=== PATIENT | female | born 1945 | race Hispanic/Latino ===

== ENCOUNTER 2016-09-22 02:43 | Inpatient (IN) | payer MEDICARE ==
--- NOTE | 2016-09-22 03:23 | C.PDOC ---
History Of Present Illness Patient presents to the ER with a complaint of a burning, throbbing, mid epigastric and mid sternal pain since 18:30, associated with a productive cough. Patient reports taking nexium with no relief to symptoms. Patient is speaking in complete sentence; denies fever or chills. Time Seen by Provider: 09/22/16 03:22 Chief Complaint (Nursing): Chest Pain History Per: Patient History/Exam Limitations: no limitations Onset/Duration Of Symptoms: Hrs Current Symptoms Are (Timing): Still Present Severity: Moderate Pain Scale Rating Of: 4 Quality: Burning, Other (Throbbing) Associated Symptoms: Other ((+) Productive cough. (-) Fever, Chills) Modifying Factors: None Exacerbating Factors: None Alleviating Factors: None Recent travel outside of the [place]: No Past Medical History Reviewed: Historical Data, Nursing Documentation, Vital Signs Vital Signs: Last Vital Signs Temp 98.2 F 09/22/16 04:11 Pulse 67 09/22/16 04:11 Resp 12 09/22/16 04:11 BP 163/69 H 09/22/16 04:11 Pulse Ox 97 09/22/16 05:10 - Medical History PMH: Fractures, HTN, Hypothyroidism Surgical History: No Surg Hx Family History: States: No Known Family Hx - Social History Hx Alcohol Use: No Hx Substance Use: No - Immunization History Hx Tetanus Toxoid Vaccination: No Hx Influenza Vaccination: No Hx Pneumococcal Vaccination: No Review Of Systems Constitutional: Negative for: Fever, Chills Cardiovascular: Positive for: Chest Pain (Mid sternal) Respiratory: Positive for: Cough, Sputum Gastrointestinal: Positive for: Abdominal Pain (Mid epigastric) Genitourinary: Negative for: Dysuria Musculoskeletal: Negative for: Back Pain Skin: Negative for: Rash Neurological: Negative for: Weakness Psych: Negative for: Anxiety Physical Exam - Physical Exam Appears: Non-toxic Skin: Warm, Dry Head: Normacephalic Eye(s): bilateral: Normal Inspection Oral Mucosa: Moist Neck: Supple Chest: Symmetrical, No Tenderness Cardiovascular: Rhythm Regular, No Murmur Respiratory: No Rales, No Rhonchi, No Wheezing Gastrointestinal/Abdominal: Soft, Tenderness (Mid epigastric) Back: No CVA Tenderness Extremity: Normal ROM Extremity: Bilateral: Atraumatic Neurological/Psych: Oriented x3, Normal Speech, Normal Cognition Gait: Steady ED Course And Treatment - Laboratory Results Result Diagrams: 09/22/16 03:50 09/22/16 03:50 ECG: Interpreted By Me, Viewed By Me ECG Rhythm: Sinus Rhythm (63), Nonspecific Changes (sinus arrithmya) O2 Sat by Pulse Oximetry: 97 Pulse Ox Interpretation: Normal Progress Note: EKG, blood work, CXR and urinalysis ordered. Aspirin and protonix administered. Disposition Discussed With Dr.: Francisco J Chacon Comment: accepted the pt on his service and took over the care at 6:30 AM Doctor Will See Patient In The: Hospital Counseled Patient/Family Regarding: Studies Performed, Diagnosis - Disposition Disposition: HOSPITALIZED Disposition Time: 04:30 Condition: FAIR - Clinical Impression Clinical Impression: Abdominal pain, Cholecystitis, acute, Lung mass - Scribe Statement The provider has reviewed the documentation as recorded by the Scribe Hugh London All medical record entries made by the Scribe were at my direction and personally dictated by me. I have reviewed the chart and agree that the record accurately reflects my personal performance of the history, physical exam, medical decision making, and the department course for this patient. I have also personally directed, reviewed, and agree with the discharge instructions and disposition. Decision To Admit - Pt Status Changed To: Hospital Disposition Of: Inpatient - Admit Certification Admit to Inpatient:: After my assessment, the patient will require hospitalization for at least two midnights. This is because of the severity of symptoms shown, intensity of services needed, and/or the medical risk in this patient being treated as an outpatient. - InPatient: Physician Admission Certification: I certify that this patient requires 2 or more midnights of care for the following reason:: After my assessment, the patient will require hospitalization for at least two midnights. This is because of the severity of symptoms shown, intensity of services needed, and/or the medical risk in this patient being treated as an outpatient. - . Bed Request Type: Regular Admitting Physician: Francisco J Chacon Patient Diagnosis: Abdominal pain, Cholecystitis, acute, Lung mass
[2016-09-22 03:53] LABS: BASO # 0.1 K/uL (0.0-0.2); BASO % 0.6 % (0.0-2.0); EOS % 0.3 % (0.0-4.0); HEMOGLOBIN 12.2 g/dL (11.0-16.0); LYMPH # 0.9 K/uL (1.0-4.3); LYMPH % 6.4 % (20.0-40.0); MEAN CELL VOLUME 78.9 fL (81.0-99.0); MEAN CORPUSCULAR HEMOGLOBIN 25.5 pg (27.0-31.0); MEAN CORPUSCULAR HGB CONC 32.3 g/dL (33.0-37.0); MEAN PLATELET VOLUME 7.1 fL (7.2-11.7); MONO # 0.4 K/uL (0.0-0.8); MONO % 2.7 % (0.0-10.0); NEUT # 12.3 K/uL (1.8-7.0); PLATELET COUNT 401 K/uL (130-400); RBC 4.79 Mil/uL (3.80-5.20); RED CELL DISTRIBUTION WIDTH 15.7 % (11.5-14.5); WHITE BLOOD COUNT 13.6 K/uL (4.8-10.8)
[2016-09-22] MEDS ORDERED: Piperacillin/Tazobact 3.375 gm 100 ML IVPB STA ×2 (03:59→06:31)
[2016-09-22 04:01] LABS: ALBUMIN 4.1 g/dL (3.5-5.0); INR 1.1; PROTHROMBIN TIME 12.5 SECONDS (9.7-12.2)
[2016-09-22 04:03] LABS: AST/SGOT 172 U/L (14-36); GFR AFRICAN-AMERICAN > 60; GFR NON-AFRICAN AMERICAN > 60
[2016-09-22 04:04] LABS: ALB/GLOB RATIO 0.9 (1.0-2.1); ALT/SGPT 105 U/L (9-52); BLOOD UREA NITROGEN 13 mg/dL (7-17); CALCIUM 9.6 mg/dl (8.6-10.4); LIPASE 66 U/L (23-300)
[2016-09-22] MEDS ORDERED: Piperacillin/Tazobact 3.375 gm 100 ML IVPB ONE (04:12)
[2016-09-22 04:41] LABS: LYMPHOCYTE 4 % (20-40); MONOCYTE 2 % (0-10); NEUTROPHIL 94 % (50-75); PLATELET ESTIMATE SLIGHTLY INCREASED (NORMAL); TOTAL CELLS COUNTED 100; TOXIC GRANULATION PRESENT
[2016-09-22 04:42] LABS: ANISOCYTOSIS SLIGHT; MICROCYTOSIS SLIGHT
--- NOTE | 2016-09-22 06:00 | CT ---
EXAM: CT Chest Without Intravenous Contrast CLINICAL HISTORY: 71 years old, female; Pain; Chest pain; Additional info: Left lower lobe mass TECHNIQUE: Axial computed tomography images of the chest without intravenous contrast. This CT exam was performed using one or more of the following dose reduction techniques: automated exposure control, adjustment of the mA and/or kV according to patient size, and/or use of iterative reconstruction technique. Coronal and sagittal reformatted images were created and reviewed. EXAM DATE/TIME: 09/22/2016 4:03 AM COMPARISON: No relevant prior studies available. FINDINGS: LUNGS: Large 6.3 x 6.3 x 5.2 cm round, masslike density in the lingula, highly suspicious for a lung mass. This has lobulated, and mildly irregular margins. It abuts the pleural fissure anteriorly. There is mild adjacent nearby interstitial thickening. Diffuse emphysematous changes. Cluster of 3 noncalcified nodules seen in the right lower lobe, images 60, 66 and 70 of series 4. The largest of these measures 7 x 4 mm. There is also a 4 mm noncalcified nodule in the left lower lobe, image 85 series 4. No evidence of significant focal consolidation/infiltrate in the lungs. No evidence of diffuse pulmonary vascular congestion. PLEURAL SPACE: No pneumothorax or significant pleural effusions seen. HEART: Coronary artery calcification. Tiny pericardial effusion. BONES/JOINTS: Bony structures appear demineralized. No evidence of destructive or otherwise aggressive-appearing bony lesions. SOFT TISSUES: No acute abnormality of the visualized soft tissues is seen. VASCULATURE: Exam is nondiagnostic for aortic dissection and pulmonary emboli, secondary to unenhanced technique. LYMPH NODES: Scattered small mediastinal nodes seen, none appearing pathologically enlarged. No evidence of diffuse pathologic lymphadenopathy. LIVER: No focal liver lesions seen on this unenhanced exam. ADRENALS: 2 cm left adrenal lesion, having a CT attenuation of less than 10 Hounsfield units on this noncontrast exam, most likely representing a benign adenoma. UPPER ABDOMEN: Large stone in the gallbladder neck region. There is subtle infiltration of the fat adjacent to the gallbladder, suspicious for subtle pericholecystic inflammation. The gallbladder is incompletely visualized on this exam. IMPRESSION: - Findings suspicious for a large 6.3 cm lingular lung mass. Malignancy is suspected. - Cholelithiasis, with suspected subtle pericholecystic inflammation. Early acute cholecystitis is not excluded. Recommend clinical correlation, and further workup as indicated, such as with right upper quadrant ultrasound or followup abdominal CT with contrast. - Diffuse emphysematous changes. - Scattered subcentimeter pulmonary nodules, as described. - See above for remaining findings.
[2016-09-22 07:23] LABS: URINE AMORPHOUS SEDIMENT RARE /ul (<OCC); URINE BILIRUBIN NEGATIVE (NEGATIVE); URINE BLOOD NEGATIVE (NEGATIVE); URINE CLARITY Hazy (Clear); URINE COLOR Yellow (YELLOW); URINE GLUCOSE (UA) NORMAL (Normal); URINE LEUKOCYTE ESTERASE TRACE Leu/uL (Negative); URINE NITRATE NEGATIVE (NEGATIVE); URINE PROTEIN NEGATIVE (NEGATIVE); URINE UROBILINOGEN NORMAL mg/dL (0.2-1.0)
--- NOTE | 2016-09-22 09:23 | US ---
Right upper quadrant abdominal ultrasound History: Elevated liver enzymes. Gallstones. Pain. Comparison: None available. Technique: Real-time sonography was performed through the right upper quadrant of the abdomen. Findings: Liver: 17.5 centimeters in length. Prominent. Increased echogenicity of the hepatic parenchymal cortex suggestive for fatty infiltration versus hepatic parenchymal disease. Gallbladder: Cholelithiasis. Prominent calculi measure up to 2.7 millimeters. Associated sludge. Prominent wall thickening measuring up to 7.5 millimeters. Associated wall edema. Positive sonographic Cloud's sign. Common bile duct is prominent measuring up to 7 millimeters. Limited visualization of the pancreas. Visualized portions appear somewhat echogenic. Clinical correlation. Visualized aorta and IVC are preserved. Right kidney: 12.9 x 4.4 x 5.5 centimeters. No calculi or hydronephrosis. Impression: Cholelithiasis with prominent gallbladder wall thickening measuring up to 7.5 millimeters as well as associated wall edema and pericholecystic fluid. Positive sonographic Cloud's sign. These findings are concerning for possible acute cholecystitis. Clinical correlation. Enlarged liver with diffuse increased echogenicity suggestive for fatty infiltration versus hepatic parenchymal disease. Clinical correlation. Mild prominence of the common bile duct measuring up to 7 millimeters. Limited visualization of the pancreas.
[2016-09-22] MEDS ORDERED: Morphine 4 MG/ML VIAL ONE (09:35)
[2016-09-22] MEDS ORDERED: Piperacill/Tazo 2.25gm in Dex 2.25 GM/50 ML BAG IVPB SCH (10:15)
--- NOTE | 2016-09-22 10:26 | CP.PCM.CON ---
History of Present Illness - History of Present Illness History of Present Illness: SURGERY CONSULT NOTE FOR DR. HEBERT 71F presents to [facility] [place] with epigastric pain that began last night after dinner. Patient states she thought it was her GERD acting up but pain began worse despite taking antacids. Patient states pain is associated with vomiting and she has not been able to keep food down. She states she is not hungry. Patient states she had a temp of 100 at home. Denies shortness of breath. PMH: Thyroid disease, HTN, GERD PSH: *2 Social: denies tobacco, alcohol and illicit drugs Allergies: Iodine Past Patient History - Past Social History Smoking Status: Never Smoked - CARDIAC Hx Hypertension: Yes - ENDOCRINE/METABOLIC Hx Hypothyroidism: Yes - MUSCULOSKELETAL/RHEUMATOLOGICAL Hx Fractures: Yes - PSYCHIATRIC Hx Substance Use: No - SURGICAL HISTORY Hx Surgeries: No Meds Allergies/Adverse Reactions: Allergies Allergy/AdvReac Type Severity Reaction Status Date / Time iodine Allergy Verified 09/22/16 03:00 - Medications Medications: Current Medications Piperacillin Sod/Tazobactam Sod (Zosyn 2.25 Gm Iv Premix) 2.25 gm in 50 mls @ 100 mls/hr IVPB Q6H [facility] Morphine Sulfate (Morphine) 2 mg IVP Q4 PRN PRN Reason: Pain, moderate (4-7) Stop: 09/25/16 10:16 Pantoprazole Sodium (Protonix Ec Tab) 40 mg PO DAILY [facility] Physical Exam - Constitutional Appears: Non-toxic, No Acute Distress - Head Exam Head Exam: ATRAUMATIC - Eye Exam Eye Exam: EOMI, PERRL - ENT Exam ENT Exam: Mucous Membranes Moist - Respiratory Exam Respiratory Exam: Clear to Auscultation Bilateral, NORMAL BREATHING PATTERN - Cardiovascular Exam Cardiovascular Exam: REGULAR RHYTHM, +S1, +S2 - GI/Abdominal Exam GI & Abdominal Exam: Soft, Tenderness (epigastric/ RUQ tenderness). absent: Distended, Firm, Guarding, Rigid - Extremities Exam Extremities exam: Negative for: pedal edema, tenderness - Neurological Exam Neurological exam: Alert, Oriented x3 - Psychiatric Exam Psychiatric exam: Normal Affect, Normal Mood - Skin Skin Exam: Dry, Intact, Normal Color, Warm Results - Vital Signs Recent Vital Signs: Last Vital Signs Temp 97.8 F 09/22/16 07:45 Pulse 75 09/22/16 07:45 Resp 20 09/22/16 07:45 BP 151/72 H 09/22/16 07:45 Pulse Ox 95 09/22/16 07:45 - Labs Result Diagrams: 09/22/16 03:50 09/22/16 03:50 Assessment & Plan - Assessment and Plan (Free Text) Assessment: 71F with Acute Cholecystitis US: Gallbladder wall thickening, cholelithiasis, sludge, CBD7mm, positive sonographic murphys sign Plan: - NPO, IVF, ABX, anti-emetic - AM labs, Coags - pre-op - consented for Lap Cholecystectomy - Plan for OR tomorrow Discussed with Dr. Chari Chahal, PGY1
--- NOTE | 2016-09-22 11:36 | RAD ---
PROCEDURE: CHEST RADIOGRAPH, 1 VIEW HISTORY: Abdominal pain COMPARISON: None available. FINDINGS: LUNGS: Large rounded mass seen projecting over the left mid to lower lung zone measuring up to 7.5 centimeters concerning for neoplasm. Hyperinflation suggestive for COPD and or emphysematous changes. Bilateral hilar prominence. PLEURA: As above. CARDIOVASCULAR: Normal. OSSEOUS STRUCTURES: No significant abnormalities. VISUALIZED UPPER ABDOMEN: Normal. OTHER FINDINGS: None. IMPRESSION: Large rounded mass seen projecting over the left mid to lower lung zone measuring up to 7.5 centimeters concerning for neoplasm. Hyperinflation suggestive for COPD and or emphysematous changes. Bilateral hilar prominence.
[2016-09-22] MEDS: Sodium Chloride 0.9% 1,000 ML IV SCH ×3 (12:18→20:40)
[2016-09-22] MEDS: Piperacill/Tazo 3.375gm in Dex 3.375 GM/50 ML BAG IVPB SCH ×2 (12:24→18:43)
--- NOTE | 2016-09-22 12:55 | CP.PCM.CON ---
History of Present Illness - History of Present Illness History of Present Illness: 71F presents to [facility] with epigastric pain that began last night after dinner. Patient states she thought it was her GERD acting up but pain began worse despite taking antacids. Patient states pain is associated with vomiting and she has not been able to keep food down. She states she is not hungry. Patient states she had a temp of 100 at home. Denies shortness of breath. Found to have cholecystitis and lung mass Rx in progress PMH: Thyroid disease, HTN, GERD PSH: *2 Social: denies tobacco, alcohol and illicit drugs Allergies: Iodine Past Patient History - Past Medical History & Family History Past Medical History?: Yes - Past Social History Smoking Status: Never Smoked - CARDIAC Hx Cardiac Disorders: Yes Hx Hypertension: Yes - PULMONARY Hx Respiratory Disorders: No - NEUROLOGICAL Hx Neurological Disorder: No - HEENT Hx HEENT Problems: No - RENAL Hx Chronic Kidney Disease: No - ENDOCRINE/METABOLIC Hx Endocrine Disorders: Yes Hx Hypothyroidism: Yes - HEMATOLOGICAL/ONCOLOGICAL Hx Blood Disorders: No - INTEGUMENTARY Hx Dermatological Problems: No - MUSCULOSKELETAL/RHEUMATOLOGICAL Hx Arthritis: Yes Hx Falls: No Hx Fractures: Yes - GASTROINTESTINAL Hx Gastrointestinal Disorders: No - GENITOURINARY/GYNECOLOGICAL Hx Genitourinary Disorders: No - PSYCHIATRIC Hx Psychophysiologic Disorder: Yes Hx Substance Use: No - SURGICAL HISTORY Hx Surgeries: No - ANESTHESIA Hx Anesthesia: Yes Hx Anesthesia Reactions: No Hx Malignant Hyperthermia: No Has any member of the family had a problem w/ anesthesia?: No Meds Allergies/Adverse Reactions: Allergies Allergy/AdvReac Type Severity Reaction Status Date / Time iodine Allergy Verified 09/22/16 03:00 - Medications Medications: Current Medications Acetaminophen (Tylenol 325mg Tab) 650 mg PO Q6 PRN PRN Reason: Fever >100.4 F Piperacillin Sod/Tazobactam Sod (Zosyn 3.375 Gm Iv Premix) 3.375 gm in 50 mls @ 100 mls/hr IVPB Q6 [facility] Last Admin: 09/22/16 12:24 Dose: 100 mls/hr Sodium Chloride (Sodium Chloride 0.9%) 1,000 mls @ 150 mls/hr IV .Q6H40M [facility] Last Admin: 09/22/16 12:18 Dose: 150 mls/hr Morphine Sulfate (Morphine) 4 mg IVP Q4 PRN PRN Reason: Pain, moderate (4-7) Stop: 09/25/16 10:16 Ondansetron HCl (Zofran Inj) 4 mg IVP Q6 PRN PRN Reason: Nausea/Vomiting Pantoprazole Sodium (Protonix Ec Tab) 40 mg PO DAILY [facility] Results - Vital Signs Recent Vital Signs: Last Vital Signs Temp 98.0 F 09/22/16 11:00 Pulse 76 09/22/16 11:00 Resp 20 09/22/16 11:00 BP 155/70 H 09/22/16 11:00 Pulse Ox 98 09/22/16 11:00 - Labs Result Diagrams: 09/22/16 03:50 09/22/16 03:50
--- NOTE | 2016-09-22 14:31 | CP.PCM.HP ---
Past Patient History - Past Medical History & Family History Past Medical History?: Yes - Past Social History Smoking Status: Never Smoked - CARDIAC Hx Cardiac Disorders: Yes Hx Hypertension: Yes - PULMONARY Hx Respiratory Disorders: No - NEUROLOGICAL Hx Neurological Disorder: No - HEENT Hx HEENT Problems: No - RENAL Hx Chronic Kidney Disease: No - ENDOCRINE/METABOLIC Hx Endocrine Disorders: Yes Hx Hypothyroidism: Yes - HEMATOLOGICAL/ONCOLOGICAL Hx Blood Disorders: No - INTEGUMENTARY Hx Dermatological Problems: No - MUSCULOSKELETAL/RHEUMATOLOGICAL Hx Arthritis: Yes Hx Falls: No Hx Fractures: Yes - GASTROINTESTINAL Hx Gastrointestinal Disorders: No - GENITOURINARY/GYNECOLOGICAL Hx Genitourinary Disorders: No - PSYCHIATRIC Hx Psychophysiologic Disorder: Yes Hx Substance Use: No - SURGICAL HISTORY Hx Surgeries: No - ANESTHESIA Hx Anesthesia: Yes Hx Anesthesia Reactions: No Hx Malignant Hyperthermia: No Has any member of the family had a problem w/ anesthesia?: No Meds Allergies/Adverse Reactions: Allergies Allergy/AdvReac Type Severity Reaction Status Date / Time iodine Allergy Verified 09/22/16 03:00 Physical Exam - Constitutional Appears: Well - Head Exam Head Exam: ATRAUMATIC, NORMAL INSPECTION, NORMOCEPHALIC - Eye Exam Eye Exam: EOMI, Normal appearance, PERRL Pupil Exam: NORMAL ACCOMODATION, PERRL - ENT Exam ENT Exam: Mucous Membranes Moist, Normal Exam - Neck Exam Neck exam: Positive for: Normal Inspection - Respiratory Exam Respiratory Exam: Decreased Breath Sounds - Cardiovascular Exam Cardiovascular Exam: REGULAR RHYTHM, +S1, +S2 - GI/Abdominal Exam GI & Abdominal Exam: Diminished Bowel Sounds, Soft - Rectal Exam Rectal Exam: Deferred Results - Vital Signs Recent Vital Signs: Last Vital Signs Temp 98.0 F 09/22/16 11:00 Pulse 76 09/22/16 11:00 Resp 20 09/22/16 11:00 BP 155/70 H 09/22/16 11:00 Pulse Ox 98 09/22/16 11:00 - Labs Result Diagrams: 09/22/16 03:50 09/22/16 03:50
--- NOTE | 2016-09-22 17:22 | CP.PCM.CON ---
Past Patient History - Past Medical History & Family History Past Medical History?: Yes - Past Social History Smoking Status: Never Smoked - CARDIAC Hx Cardiac Disorders: Yes Hx Hypertension: Yes - PULMONARY Hx Respiratory Disorders: No - NEUROLOGICAL Hx Neurological Disorder: No - HEENT Hx HEENT Problems: No - RENAL Hx Chronic Kidney Disease: No - ENDOCRINE/METABOLIC Hx Endocrine Disorders: Yes Hx Hypothyroidism: Yes - HEMATOLOGICAL/ONCOLOGICAL Hx Blood Disorders: No - INTEGUMENTARY Hx Dermatological Problems: No - MUSCULOSKELETAL/RHEUMATOLOGICAL Hx Arthritis: Yes Hx Falls: No Hx Fractures: Yes - GASTROINTESTINAL Hx Gastrointestinal Disorders: No - GENITOURINARY/GYNECOLOGICAL Hx Genitourinary Disorders: No - PSYCHIATRIC Hx Psychophysiologic Disorder: Yes Hx Substance Use: No - SURGICAL HISTORY Hx Surgeries: No - ANESTHESIA Hx Anesthesia: Yes Hx Anesthesia Reactions: No Hx Malignant Hyperthermia: No Has any member of the family had a problem w/ anesthesia?: No Meds Allergies/Adverse Reactions: Allergies Allergy/AdvReac Type Severity Reaction Status Date / Time iodine Allergy Verified 09/22/16 03:00 - Medications Medications: Current Medications Acetaminophen (Tylenol 325mg Tab) 650 mg PO Q6 PRN PRN Reason: Fever >100.4 F Piperacillin Sod/Tazobactam Sod (Zosyn 3.375 Gm Iv Premix) 3.375 gm in 50 mls @ 100 mls/hr IVPB Q6 [facility] Last Admin: 09/22/16 12:24 Dose: 100 mls/hr Sodium Chloride (Sodium Chloride 0.9%) 1,000 mls @ 150 mls/hr IV .Q6H40M [facility] Last Admin: 09/22/16 12:18 Dose: 150 mls/hr Morphine Sulfate (Morphine) 4 mg IVP Q4 PRN PRN Reason: Pain, moderate (4-7) Stop: 09/25/16 10:16 Ondansetron HCl (Zofran Inj) 4 mg IVP Q6 PRN PRN Reason: Nausea/Vomiting Pantoprazole Sodium (Protonix Ec Tab) 40 mg PO DAILY [facility] Results - Vital Signs Recent Vital Signs: Last Vital Signs Temp 98.1 F 09/22/16 15:56 Pulse 79 09/22/16 15:56 Resp 20 09/22/16 15:56 BP 148/87 09/22/16 15:56 Pulse Ox 95 09/22/16 15:56 - Labs Result Diagrams: 09/22/16 03:50 09/22/16 03:50
[2016-09-23] MEDS: Piperacill/Tazo 3.375gm in Dex 3.375 GM/50 ML BAG IVPB SCH ×3 (00:50→23:32)
[2016-09-23] MEDS: Levothyroxine 75 MCG TAB PO SCH ×2 (05:51→05:52)
[2016-09-23] MEDS ORDERED: Aminophylline 25 mg/ml Inj ONE (07:21)
[2016-09-23 07:23] LABS: HEMOGLOBIN 11.6 g/dL (11.0-16.0); MEAN CELL VOLUME 78.8 fL (81.0-99.0); MEAN CORPUSCULAR HEMOGLOBIN 25.6 pg (27.0-31.0); MEAN CORPUSCULAR HGB CONC 32.5 g/dL (33.0-37.0); MEAN PLATELET VOLUME 7.1 fL (7.2-11.7); RBC 4.54 Mil/uL (3.80-5.20); WHITE BLOOD COUNT 15.6 K/uL (4.8-10.8)
[2016-09-23 07:34] LABS: INR 1.3; PROTHROMBIN TIME 14.8 SECONDS (9.7-12.2)
--- NOTE | 2016-09-23 07:58 | CP.PCM.CON ---
<Macho Johns - Last Filed: 09/23/16 16:41> History of Present Illness - History of Present Illness History of Present Illness: PGY4 GI Fellow Consult Note Patient is a 71yo female with PMHx significant for hypothyroidism, HTN and GERD who presented to the ED with abdominal pain. Patient states pain occurred suddenly last night following dinner. She believed her symptoms to be due to reflux as she has had this previously and used one Nexium tablet without relief. She developed nausea and vomited once. As abdominal pain began to radiate to her chest, concerned she was having a heart attack she came to the hospital for further evaluation. Separately, admits she has been suffering with URI symptoms (cough/cold) for about 2-3 weeks and currently has a productive cough. She had CXR, CT chest in the ED which revealed a [id number] left lingula lung mass, pulmonary nodules, emphysema and on U/S abdomen, fatty liver with findings c/w acute cholecystitis. She admits to subjective fevers, nausea, vomiting but denies any change in bowel habits, weight loss, hematemesis, hematochezia, melena. PMHx: See HPI PSHx: x 2 FHx: Discussed with patient and she denies any significant family history Social: Denies tobacco, EtOH or illicit drug use Endo: Denies any prior endoscopy/colonoscopy - has refused screening colonoscopy previously Review of Systems - Constitutional Constitutional: Anorexia, Fever. absent: Chills, Weight Loss - EENT Eyes: absent: Change in Vision Nose/Mouth/Throat: absent: Sore Throat - Cardiovascular Cardiovascular: Chest Pain. absent: Dyspnea, Edema - Respiratory Respiratory: Cough, Excessive Mucous Production. absent: Dyspnea - Gastrointestinal Gastrointestinal: Abdominal Pain, Bloating, Dyspepsia, Nausea, Vomiting. absent : Constipation, Cramping, Diarrhea, Dysphagia, Hematemesis, Hematochezia, Melena - Genitourinary Genitourinary: absent: Dysuria, Urinary Frequency, Urinary Urgency - Musculoskeletal Musculoskeletal: absent: Back Pain, Neck Pain - Integumentary Integumentary: absent: New Lesions, Rash - Neurological Neurological: absent: Dizziness, Numbness, Focal Weakness - Psychiatric Psychiatric: absent: Anxiety, Depression - Endocrine Endocrine: absent: Polydipsia, Polyphagia, Polyuria - Hematologic/Lymphatic Hematologic: absent: Easy Bleeding, Easy Bruising, Lymphadenopathy Past Patient History - Past Medical History & Family History Past Medical History?: Yes - Past Social History Smoking Status: Never Smoked - CARDIAC Hx Cardiac Disorders: Yes Hx Hypertension: Yes - PULMONARY Hx Respiratory Disorders: No - NEUROLOGICAL Hx Neurological Disorder: No - HEENT Hx HEENT Problems: No - RENAL Hx Chronic Kidney Disease: No - ENDOCRINE/METABOLIC Hx Endocrine Disorders: Yes Hx Hypothyroidism: Yes - HEMATOLOGICAL/ONCOLOGICAL Hx Blood Disorders: No - INTEGUMENTARY Hx Dermatological Problems: No - MUSCULOSKELETAL/RHEUMATOLOGICAL Hx Arthritis: Yes Hx Falls: No Hx Fractures: Yes - GASTROINTESTINAL Hx Gastrointestinal Disorders: No - GENITOURINARY/GYNECOLOGICAL Hx Genitourinary Disorders: No - PSYCHIATRIC Hx Psychophysiologic Disorder: Yes Hx Substance Use: No - SURGICAL HISTORY Hx Surgeries: No - ANESTHESIA Hx Anesthesia: Yes Hx Anesthesia Reactions: No Hx Malignant Hyperthermia: No Has any member of the family had a problem w/ anesthesia?: No Meds Allergies/Adverse Reactions: Allergies Allergy/AdvReac Type Severity Reaction Status Date / Time iodine Allergy Verified 09/22/16 03:00 - Medications Medications: Current Medications Acetaminophen (Tylenol 325mg Tab) 650 mg PO Q6 PRN PRN Reason: Fever >100.4 F Amlodipine Besylate (Norvasc) 5 mg PO DAILY [facility] Fluoxetine HCl (Prozac) 20 mg PO DAILY [facility] Piperacillin Sod/Tazobactam Sod (Zosyn 3.375 Gm Iv Premix) 3.375 gm in 50 mls @ 100 mls/hr IVPB Q6 [facility] Last Admin: 09/23/16 05:51 Dose: 100 mls/hr Sodium Chloride (Sodium Chloride 0.9%) 1,000 mls @ 75 mls/hr IV .[id number] [facility] Last Admin: 09/22/16 20:40 Dose: 75 mls/hr Levothyroxine Sodium (Synthroid) 75 mcg PO DAILY@0630 [facility] Last Admin: 09/23/16 05:52 Dose: Not Given Morphine Sulfate (Morphine) 2 mg IVP Q4 PRN PRN Reason: Pain, moderate (4-7) Stop: 09/25/16 10:16 Last Admin: 09/22/16 21:35 Dose: 2 mg Ondansetron HCl (Zofran Inj) 4 mg IVP Q6 PRN PRN Reason: Nausea/Vomiting Pantoprazole Sodium (Protonix Ec Tab) 40 mg PO DAILY [facility] Physical Exam - Constitutional Appears: Non-toxic, No Acute Distress - Eye Exam Eye Exam: EOMI, PERRL - ENT Exam ENT Exam: Mucous Membranes Moist - Respiratory Exam Respiratory Exam: Decreased Breath Sounds, Rales, Rhonchi. absent: Clear to Auscultation Bilateral, Wheezes - Cardiovascular Exam Cardiovascular Exam: RRR, +S1, +S2 - GI/Abdominal Exam GI & Abdominal Exam: Normal Bowel Sounds, Soft, Tenderness (RUQ, + caldera sign) . absent: Distended, Firm, Guarding, Organomegaly, Rigid - Extremities Exam Extremities exam: Positive for: normal inspection. Negative for: pedal edema - Neurological Exam Neurological exam: Alert, Oriented x3 - Psychiatric Exam Psychiatric exam: Normal Affect, Normal Mood - Skin Skin Exam: Dry, Warm Results - Vital Signs Recent Vital Signs: Last Vital Signs Temp 98.9 F 09/23/16 00:47 Pulse 88 09/23/16 00:47 Resp 20 09/23/16 00:47 BP 138/70 09/23/16 00:47 Pulse Ox 94 L 09/23/16 00:47 - Labs Result Diagrams: 09/23/16 15:42 09/23/16 10:45 Labs: Laboratory Results - last 24 hr 09/23/16 09/23/16 07:14 07:14 WBC 15.6 H RBC 4.54 Hgb 11.6 Hct 35.7 MCV 78.8 L MCH 25.6 L MCHC 32.5 L RDW 16.0 H Plt Count 354 MPV 7.1 L PT 14.8 H INR 1.3 APTT 28 D Assessment & Plan - Assessment and Plan (Free Text) Assessment: Patient is a 71yo female with PMHx significant for hypothyroidism, HTN and GERD who presented to the ED with abdominal pain. -Acute cholecystitis -Lung mass, lingula -Elevated LFTs Plan: -Patient NPO and scheduled for laparoscopic cholecystectomy with IOC -Elevated LFTs noted in hepatocellular pattern possibly 2/2 fatty infiltration; improved today -U/S reviewed -Check autoimmune w/u: FAIZA, AMA, SMA, LKM-Ab, IgG level -Patient will ultimately benefit from lung mass bx -Has refused screening colonoscopy previously and continues to do so - Date & Time Date: 09/23/16 Time: 07:20 <Arnold Mckeon - Last Filed: 09/23/16 18:03> Meds - Medications Medications: Current Medications Acetaminophen (Tylenol 325mg Tab) 650 mg PO Q6 PRN PRN Reason: Fever >100.4 F Amlodipine Besylate (Norvasc) 5 mg PO DAILY [facility] Last Admin: 09/23/16 10:33 Dose: Not Given Fluoxetine HCl (Prozac) 20 mg PO DAILY [facility] Last Admin: 09/23/16 10:34 Dose: Not Given Piperacillin Sod/Tazobactam Sod (Zosyn 3.375 Gm Iv Premix) 3.375 gm in 50 mls @ 100 mls/hr IVPB Q6 [facility] Last Admin: 09/23/16 05:51 Dose: 100 mls/hr Lactated Ringer's (Lactated Ringer's) 1,000 mls @ 100 mls/hr IV .Q10H [facility] Lactated Ringer's (Lactated Ringer's) 1,000 mls @ 1,000 mls/hr IV .Q1H ONE Stop: 09/23/16 18:16 Levothyroxine Sodium (Synthroid) 75 mcg PO DAILY@0630 [facility] Last Admin: 09/23/16 05:52 Dose: Not Given Morphine Sulfate (Morphine) 4 mg IVP Q4 PRN PRN Reason: Pain, moderate (4-7) Stop: 09/25/16 10:16 Ondansetron HCl (Zofran Inj) 4 mg IVP Q6 PRN PRN Reason: Nausea/Vomiting Pantoprazole Sodium (Protonix Ec Tab) 40 mg PO DAILY [facility] Results - Vital Signs Recent Vital Signs: Last Vital Signs Temp 98.7 F 09/23/16 17:00 Pulse 83 09/23/16 17:00 Resp 16 09/23/16 17:00 BP 99/52 L 09/23/16 17:00 Pulse Ox 98 09/23/16 17:00 - Labs Result Diagrams: 09/23/16 15:42 09/23/16 10:45 Labs: Laboratory Results - last 24 hr 09/23/16 09/23/16 09/23/16 07:14 07:14 07:14 WBC 15.6 H RBC 4.54 Hgb 11.6 Hct 35.7 MCV 78.8 L MCH 25.6 L MCHC 32.5 L RDW 16.0 H Plt Count 354 MPV 7.1 L PT 14.8 H INR 1.3 APTT 28 D Sodium 140 Potassium 2.9 L Chloride 105 Carbon Dioxide 26 Anion Gap 12 BUN 13 Creatinine 0.5 L Est GFR ( Amer) > 60 Est GFR (Non-Af Amer) > 60 Random Glucose 106 H Calcium 8.7 Total Bilirubin 0.9 AST 45 H D ALT 51 Alkaline Phosphatase 96 Total Protein 6.6 Albumin 3.1 L D Globulin 3.5 Albumin/Globulin Ratio 0.9 L IgG Hepatitis A IgM Ab Hep Bs Antigen Hep B Core IgM Ab Hepatitis C Antibody Blood Type Blood Type Confirm Antibody Screen 09/23/16 09/23/16 09/23/16 10:45 11:28 11:28 WBC RBC Hgb Hct MCV MCH MCHC RDW Plt Count MPV PT INR APTT Sodium Potassium 3.5 L Chloride Carbon Dioxide Anion Gap BUN Creatinine Est GFR ( Amer) Est GFR (Non-Af Amer) Random Glucose Calcium Total Bilirubin AST ALT Alkaline Phosphatase Total Protein Albumin Globulin Albumin/Globulin Ratio IgG 912.5 Hepatitis A IgM Ab Negative Hep Bs Antigen Negative Hep B Core IgM Ab Negative Hepatitis C Antibody Negative Blood Type Blood Type Confirm Antibody Screen 09/23/16 09/23/16 11:34 15:42 WBC RBC Hgb 10.8 L Hct 33.9 L MCV MCH MCHC RDW Plt Count MPV PT INR APTT Sodium Potassium Chloride Carbon Dioxide Anion Gap BUN Creatinine Est GFR ( Amer) Est GFR (Non-Af Amer) Random Glucose Calcium Total Bilirubin AST ALT Alkaline Phosphatase Total Protein Albumin Globulin Albumin/Globulin Ratio IgG Hepatitis A IgM Ab Hep Bs Antigen Hep B Core IgM Ab Hepatitis C Antibody Blood Type A POSITIVE Blood Type Confirm A POSITIVE Antibody Screen Negative Attending/Attestation - Attestation I have personally seen and examined this patient.: Yes I have fully participated in the care of the patient.: Yes I have reviewed all pertinent clinical information: Yes Notes (Text): 09/23/16 17:59 71 year old female with h/o HTN, GERD, hypothyroidism admitted with acute cholecystitis, elevated lfts. 1. Acute cholecystitis 2. Elevated LFTs Plan: -s/p lap diana -IOC negative for choledocholithiasis -viral hepatitis serologies negative -lfts downtrending -US abdomen with evidence of fatty liver disease -monitor daily lfts -autoimmune serologies sent -will sign off at this time
[2016-09-23 08:03] LABS: ALBUMIN 3.1 g/dL (3.5-5.0)
[2016-09-23 08:06] LABS: GFR AFRICAN-AMERICAN > 60; GFR NON-AFRICAN AMERICAN > 60
[2016-09-23 08:07] LABS: ALB/GLOB RATIO 0.9 (1.0-2.1); ALT/SGPT 51 U/L (9-52); AST/SGOT 45 U/L (14-36); BLOOD UREA NITROGEN 13 mg/dL (7-17); CALCIUM 8.7 mg/dl (8.6-10.4)
--- NOTE | 2016-09-23 08:24 | CP.PCM.PCO ---
Physician Communication Note - Physician Communication Note Physician Communication Note: OR today - K+ replaced stat
[2016-09-23] MEDS: Sodium Chloride 0.9% 1,000 ML IV SCH (09:01)
--- NOTE | 2016-09-23 09:03 | CP.PCM.CON ---
History of Present Illness - History of Present Illness History of Present Illness: Consulted for pre operative cardiac risk assessment. Patient is not known to me and I did not see the patient yet. So I can't predict the cardiac risk for this surgery. Called by surgical scheduler Sherif as per his surgical attending this surgery is an emergency. For emergency and life saving surgery delay could be detrimental because patient needs the surgery no matter what, even if the risk is high. But if you have time and this is an elective or semi elective surgery, I will be more than happy to see and perform necessary pre operative cardiac tests to assess the cardiac risk. I will leave the decision to the operative team (Surgery and anaesthesia) This note is written as per the request from the surgical team Past Patient History - Past Medical History & Family History Past Medical History?: Yes - Past Social History Smoking Status: Never Smoked - CARDIAC Hx Cardiac Disorders: Yes Hx Hypertension: Yes - PULMONARY Hx Respiratory Disorders: No - NEUROLOGICAL Hx Neurological Disorder: No - HEENT Hx HEENT Problems: No - RENAL Hx Chronic Kidney Disease: No - ENDOCRINE/METABOLIC Hx Endocrine Disorders: Yes Hx Hypothyroidism: Yes - HEMATOLOGICAL/ONCOLOGICAL Hx Blood Disorders: No - INTEGUMENTARY Hx Dermatological Problems: No - MUSCULOSKELETAL/RHEUMATOLOGICAL Hx Arthritis: Yes Hx Falls: No Hx Fractures: Yes - GASTROINTESTINAL Hx Gastrointestinal Disorders: No - GENITOURINARY/GYNECOLOGICAL Hx Genitourinary Disorders: No - PSYCHIATRIC Hx Psychophysiologic Disorder: Yes Hx Substance Use: No - SURGICAL HISTORY Hx Surgeries: No - ANESTHESIA Hx Anesthesia: Yes Hx Anesthesia Reactions: No Hx Malignant Hyperthermia: No Has any member of the family had a problem w/ anesthesia?: No Meds Allergies/Adverse Reactions: Allergies Allergy/AdvReac Type Severity Reaction Status Date / Time iodine Allergy Verified 09/22/16 03:00 - Medications Medications: Current Medications Acetaminophen (Tylenol 325mg Tab) 650 mg PO Q6 PRN PRN Reason: Fever >100.4 F Amlodipine Besylate (Norvasc) 5 mg PO DAILY [facility] Fluoxetine HCl (Prozac) 20 mg PO DAILY [facility] Piperacillin Sod/Tazobactam Sod (Zosyn 3.375 Gm Iv Premix) 3.375 gm in 50 mls @ 100 mls/hr IVPB Q6 [facility] Last Admin: 09/23/16 05:51 Dose: 100 mls/hr Sodium Chloride (Sodium Chloride 0.9%) 1,000 mls @ 75 mls/hr IV .[id number] [facility] Last Admin: 09/22/16 20:40 Dose: 75 mls/hr Potassium Chloride (Potassium Chloride 20 Meq/100 Ml) 20 meq in 100 mls @ 50 mls/hr IVPB Q2H [facility] Stop: 09/23/16 14:59 Levothyroxine Sodium (Synthroid) 75 mcg PO DAILY@0630 [facility] Last Admin: 09/23/16 05:52 Dose: Not Given Morphine Sulfate (Morphine) 2 mg IVP Q4 PRN PRN Reason: Pain, moderate (4-7) Stop: 09/25/16 10:16 Last Admin: 09/22/16 21:35 Dose: 2 mg Ondansetron HCl (Zofran Inj) 4 mg IVP Q6 PRN PRN Reason: Nausea/Vomiting Pantoprazole Sodium (Protonix Ec Tab) 40 mg PO DAILY [facility] Results - Vital Signs Recent Vital Signs: Last Vital Signs Temp 98.3 F 09/23/16 07:12 Pulse 83 09/23/16 07:12 Resp 20 09/23/16 07:12 BP 120/75 09/23/16 07:12 Pulse Ox 94 L 09/23/16 07:12 - Labs Result Diagrams: 09/23/16 07:14 09/23/16 07:14 Labs: Laboratory Results - last 24 hr 09/23/16 09/23/16 09/23/16 07:14 07:14 07:14 WBC 15.6 H RBC 4.54 Hgb 11.6 Hct 35.7 MCV 78.8 L MCH 25.6 L MCHC 32.5 L RDW 16.0 H Plt Count 354 MPV 7.1 L PT 14.8 H INR 1.3 APTT 28 D Sodium 140 Potassium 2.9 L Chloride 105 Carbon Dioxide 26 Anion Gap 12 BUN 13 Creatinine 0.5 L Est GFR ( Amer) > 60 Est GFR (Non-Af Amer) > 60 Random Glucose 106 H Calcium 8.7 Total Bilirubin 0.9 AST 45 H D ALT 51 Alkaline Phosphatase 96 Total Protein 6.6 Albumin 3.1 L D Globulin 3.5 Albumin/Globulin Ratio 0.9 L
[2016-09-23] MEDS ORDERED: Pantoprazole 40 mg EC Tab PO SCH (10:00)
--- NOTE | 2016-09-23 11:27 | CARD ---
APPROVED REPORT EKG Measurement Heart [id number] TX [id number] <Conclusion> Sinus rhythm with marked sinus arrhythmia with short TX Otherwise normal ECG
[2016-09-23] MEDS ORDERED: Propofol 10 mg/ml Inj (20 ML) ONE (12:14)
[2016-09-23] MEDS ORDERED: Iohexol 240 (50 ml) ONE (12:20)
[2016-09-23 12:26] LABS: HEPATITIS B SURFACE AG NEGATIVE (NEGATIVE)
[2016-09-23 12:31] LABS: HEPATITIS A IGM NEGATIVE (NEGATIVE); HEPATITIS B CORE AB NEGATIVE (NEGATIVE)
[2016-09-23 12:43] LABS: HEPATITIS C ANTIBODY NEGATIVE (NEGATIVE)
[2016-09-23] MEDS ORDERED: Lactated Ringer's 1,000 ML IV ONE ×5 (13:54→18:00)
[2016-09-23] MEDS ORDERED: Neostigmine Methylsulfate 3mg/3ml Syringe IV ONE (14:36)
[2016-09-23] MEDS ORDERED: Lactated Ringer's 1,000 ML IV SCH (14:45)
--- NOTE | 2016-09-23 15:04 | PCM.SURG1 ---
Surgeon's Initial Post Op Note - Surgeon's Notes Surgeon: Dr Marcelino [employer] Supervisor: Dr Jefferson PGY2, Dr Bey PGY2, Dr Chahal PGY1 Type of Anesthesia: General Endo Pre-Operative Diagnosis: cholecystitis Operative Findings: see report Post-Operative Diagnosis: acute gangrenous cholecystitis Operation Performed: laparoscopic cholecystectomy. intraoperative cholangiogram Specimen/Specimens Removed: gallbladder. gallstones. bile fluid culture Estimated Blood Loss: EBL {In ML}: 600 Blood Products Given: N/A Drains Used: Greg Post-Op Condition: Good Date of Surgery/Procedure: 09/23/16 Time of Surgery/Procedure: 15:04
[2016-09-23] MEDS: HYDROmorphone 0.5 mg/0.5 ml ISec IVP PRN ×3 (15:17→16:19)
[2016-09-23 15:44] LABS: HEMOGLOBIN 10.8 g/dL (11.0-16.0)
--- NOTE | 2016-09-23 17:48 | CP.PCM.PN ---
Subjective - Date & Time of Evaluation Date of Evaluation: 09/23/16 Time of Evaluation: 17:48 Objective - Vital Signs/Intake and Output Vital Signs (last 24 hours): Temp Pulse Resp BP Pulse Ox 98.7 F 83 16 99/52 L 98 09/23/16 17:00 09/23/16 17:00 09/23/16 17:00 09/23/16 17:00 09/23/16 17:00 Intake and Output: 09/23/16 09/23/16 06:59 18:59 Intake Total 1935 1200 Output Total 270 Balance 1935 930 - Medications Medications: Current Medications Acetaminophen (Tylenol 325mg Tab) 650 mg PO Q6 PRN PRN Reason: Fever >100.4 F Amlodipine Besylate (Norvasc) 5 mg PO DAILY [facility] Last Admin: 09/23/16 10:33 Dose: Not Given Fluoxetine HCl (Prozac) 20 mg PO DAILY [facility] Last Admin: 09/23/16 10:34 Dose: Not Given Piperacillin Sod/Tazobactam Sod (Zosyn 3.375 Gm Iv Premix) 3.375 gm in 50 mls @ 100 mls/hr IVPB Q6 [facility] Last Admin: 09/23/16 05:51 Dose: 100 mls/hr Lactated Ringer's (Lactated Ringer's) 1,000 mls @ 100 mls/hr IV .Q10H [facility] Lactated Ringer's (Lactated Ringer's) 1,000 mls @ 1,000 mls/hr IV .Q1H [facility] Stop: 09/23/16 18:16 Levothyroxine Sodium (Synthroid) 75 mcg PO DAILY@0630 [facility] Last Admin: 09/23/16 05:52 Dose: Not Given Morphine Sulfate (Morphine) 4 mg IVP Q4 PRN PRN Reason: Pain, moderate (4-7) Stop: 09/25/16 10:16 Ondansetron HCl (Zofran Inj) 4 mg IVP Q6 PRN PRN Reason: Nausea/Vomiting Pantoprazole Sodium (Protonix Ec Tab) 40 mg PO DAILY [facility] - Labs Labs: 09/23/16 15:42 09/23/16 10:45 PT 14.8 SECONDS (9.7-12.2) H 09/23/16 07:14 INR 1.3 09/23/16 07:14 APTT 28 SECONDS (21-34) D 09/23/16 07:14
--- NOTE | 2016-09-23 18:07 | CP.PCM.PN ---
Subjective - Date & Time of Evaluation Date of Evaluation: 09/23/16 Time of Evaluation: 10:20 - Subjective Subjective: clinically same Objective - Vital Signs/Intake and Output Vital Signs (last 24 hours): Temp Pulse Resp BP Pulse Ox 98.7 F 83 16 99/52 L 98 09/23/16 17:00 09/23/16 17:00 09/23/16 17:00 09/23/16 17:00 09/23/16 17:00 Intake and Output: 09/23/16 09/23/16 06:59 18:59 Intake Total 1935 1200 Output Total 270 Balance 1935 930 - Medications Medications: Current Medications Acetaminophen (Tylenol 325mg Tab) 650 mg PO Q6 PRN PRN Reason: Fever >100.4 F Amlodipine Besylate (Norvasc) 5 mg PO DAILY [facility] Last Admin: 09/23/16 10:33 Dose: Not Given Fluoxetine HCl (Prozac) 20 mg PO DAILY [facility] Last Admin: 09/23/16 10:34 Dose: Not Given Piperacillin Sod/Tazobactam Sod (Zosyn 3.375 Gm Iv Premix) 3.375 gm in 50 mls @ 100 mls/hr IVPB Q6 [facility] Last Admin: 09/23/16 05:51 Dose: 100 mls/hr Lactated Ringer's (Lactated Ringer's) 1,000 mls @ 100 mls/hr IV .Q10H [facility] Lactated Ringer's (Lactated Ringer's) 1,000 mls @ 1,000 mls/hr IV .Q1H [facility] Stop: 09/23/16 18:16 Levothyroxine Sodium (Synthroid) 75 mcg PO DAILY@0630 [facility] Last Admin: 09/23/16 05:52 Dose: Not Given Morphine Sulfate (Morphine) 4 mg IVP Q4 PRN PRN Reason: Pain, moderate (4-7) Stop: 09/25/16 10:16 Ondansetron HCl (Zofran Inj) 4 mg IVP Q6 PRN PRN Reason: Nausea/Vomiting Pantoprazole Sodium (Protonix Ec Tab) 40 mg PO DAILY [facility] - Labs Labs: 09/23/16 15:42 09/23/16 10:45 PT 14.8 SECONDS (9.7-12.2) H 09/23/16 07:14 INR 1.3 09/23/16 07:14 APTT 28 SECONDS (21-34) D 09/23/16 07:14 - Constitutional Appears: Well - Head Exam Head Exam: ATRAUMATIC, NORMAL INSPECTION, NORMOCEPHALIC - Eye Exam Eye Exam: EOMI, Normal appearance, PERRL Pupil Exam: NORMAL ACCOMODATION, PERRL - ENT Exam ENT Exam: Mucous Membranes Moist, Normal Exam - Neck Exam Neck Exam: Full ROM, Normal Inspection. absent: Lymphadenopathy - Respiratory Exam Respiratory Exam: Decreased Breath Sounds - Cardiovascular Exam Cardiovascular Exam: REGULAR RHYTHM, +S1, +S2 - GI/Abdominal Exam GI & Abdominal Exam: Soft, Diminished Bowel Sounds - Rectal Exam Rectal Exam: Deferred
[2016-09-23 19:05] LABS: MEAN CORPUSCULAR HEMOGLOBIN 25.4 pg (27.0-31.0); MEAN CORPUSCULAR HGB CONC 31.7 g/dL (33.0-37.0); RBC 3.94 Mil/uL (3.80-5.20); RED CELL DISTRIBUTION WIDTH 16.1 % (11.5-14.5); WHITE BLOOD COUNT 17.5 K/uL (4.8-10.8)
[2016-09-23] MEDS ORDERED: Sodium Chloride 0.9% 1,000 ML IV ONE (19:30)
--- NOTE | 2016-09-23 20:30 | CARD ---
APPROVED REPORT EXAM: Two-dimensional and M-mode echocardiogram with Doppler and color Doppler. Other Information Quality : GoodRhythm : NSR INDICATION Pre-Op Chest Pain RISK FACTORS Hypertension 2D DIMENSIONS LVOT Diameter2.0 (1.8-2.4cm) M-Mode DIMENSIONS RVDd3.32 (2.1-3.2cm)Left Atrium (MM)3.65 (2.5-4.0cm) IVSd1.00 (0.7-1.1cm)Aortic Root2.14 (2.2-3.7cm) LVDd4.57 (4.0-5.6cm)Aortic Cusp Exc.1.48 (1.5-2.0cm) PWd0.81 (0.7-1.1cm)FS (%) 29 % LVDs3.25 (2.0-3.8cm)LVEF (%)56 (>50%) Aortic Valve AoV Peak Nlgaljoq692.3cm/sAoV VTI65.6cmAO Peak GR.44mmHg LVOT Peak Yxlbpecc171.7cm/sLVOT VTI25.20cmAO Mean GR.22mmHg ANGIE (VMAX)0.55vr5AOB (VTI)1.79uj7GT P 1/2 Bbrv992re Mitral Valve MV E Widbpuuo82.4cm/sMV A Ryauvhpd915.4cm/sE/A ratio0.8 TDI E/Lateral E'0.0E/Medial E'0.0 Tricuspid Valve TR Peak Dtvxllwk728zg/sTR Peak Gr.21iqUqQZMM00ciXg LEFT VENTRICLE The left ventricle is normal size. There is normal left ventricular wall thickness. The Ejection Fraction is 65-70%. There is normal LV segmental wall motion. Transmitral Doppler flow pattern is Grade I-abnormal relaxation pattern. The left atrial pressure is mildly elevated. RIGHT VENTRICLE The right ventricle is normal size. The right ventricular systolic function is normal. ATRIA The left atrium size is normal. The right atrium size is normal. The interatrial septum is intact with no evidence for an atrial septal defect. AORTIC VALVE The aortic valve is trileaflet. The aortic valve is moderately calcified. There is mild aortic regurgitation. There is moderate valvular aortic stenosis. Calculated aortic valve area is 52 cm2 with maximum pressure gradient of 22 mmHg and mean pressure gradient of 1.0 mmHg. MITRAL VALVE The mitral valve is calcified but opens well.mild degree of archana noted but no lvot gradient. Mitral regurgitation is trace. TRICUSPID VALVE The tricuspid valve is normal in structure. There is mild tricuspid regurgitation. Right ventricular systolic pressure is estimated at 30 mmHg. There is no pulmonary hypertension. PULMONIC VALVE The pulmonary valve is normal in structure. GREAT VESSELS The aortic root is normal size. The aortic root displays mild to moderate sclerocalcific changes of the aortic root. The IVC is normal in size and collapses >50% with inspiration. PERICARDIAL EFFUSION There is no pericardial effusion. <Conclusion> The left ventricle is normal size. There is normal left ventricular wall thickness. The Ejection Fraction is 65-70%. Transmitral Doppler flow pattern is Grade I-abnormal relaxation pattern. The left atrial pressure is mildly elevated. The aortic valve is trileaflet. The aortic valve is moderately calcified. There is mild aortic regurgitation. There is moderate valvular aortic stenosis. Calculated aortic valve area is 52 cm2 with maximum pressure gradient of 22 mmHg and mean pressure gradient of 1.0 mmHg. The mitral valve is calcified but opens well.mild degree of archana noted but no lvot gradient. Mitral regurgitation is trace. There is mild tricuspid regurgitation. Right ventricular systolic pressure is estimated at 30 mmHg. There is no pulmonary hypertension. The aortic root is normal size. The aortic root displays mild to moderate sclerocalcific changes of the aortic root.
--- NOTE | 2016-09-23 23:22 | CP.PCM.CON ---
History of Present Illness - History of Present Illness History of Present Illness: Patient seen and evaluated S/P surgery No cardiac events Past Patient History - Past Medical History & Family History Past Medical History?: Yes - Past Social History Smoking Status: Never Smoked - CARDIAC Hx Cardiac Disorders: Yes Hx Hypertension: Yes - PULMONARY Hx Respiratory Disorders: No - NEUROLOGICAL Hx Neurological Disorder: No - HEENT Hx HEENT Problems: No - RENAL Hx Chronic Kidney Disease: No - ENDOCRINE/METABOLIC Hx Endocrine Disorders: Yes Hx Hypothyroidism: Yes - HEMATOLOGICAL/ONCOLOGICAL Hx Blood Disorders: No - INTEGUMENTARY Hx Dermatological Problems: No - MUSCULOSKELETAL/RHEUMATOLOGICAL Hx Arthritis: Yes Hx Falls: No Hx Fractures: Yes - GASTROINTESTINAL Hx Gastrointestinal Disorders: No - GENITOURINARY/GYNECOLOGICAL Hx Genitourinary Disorders: No - PSYCHIATRIC Hx Psychophysiologic Disorder: Yes Hx Substance Use: No - SURGICAL HISTORY Hx Surgeries: No - ANESTHESIA Hx Anesthesia: Yes Hx Anesthesia Reactions: No Hx Malignant Hyperthermia: No Has any member of the family had a problem w/ anesthesia?: No Meds Allergies/Adverse Reactions: Allergies Allergy/AdvReac Type Severity Reaction Status Date / Time FISH Allergy VOMITING Verified 09/23/16 23:09 iodine Allergy VOMITING Verified 09/23/16 23:09 - Medications Medications: Current Medications Acetaminophen (Tylenol 325mg Tab) 650 mg PO Q6 PRN PRN Reason: Fever >100.4 F Amlodipine Besylate (Norvasc) 5 mg PO DAILY [facility] Last Admin: 09/23/16 10:33 Dose: Not Given Fluoxetine HCl (Prozac) 20 mg PO DAILY [facility] Last Admin: 09/23/16 10:34 Dose: Not Given Piperacillin Sod/Tazobactam Sod (Zosyn 3.375 Gm Iv Premix) 3.375 gm in 50 mls @ 100 mls/hr IVPB Q6 [facility] Last Admin: 09/23/16 05:51 Dose: 100 mls/hr Lactated Ringer's (Lactated Ringer's) 1,000 mls @ 125 mls/hr IV .Q8H [facility] Levothyroxine Sodium (Synthroid) 75 mcg PO DAILY@0630 [facility] Last Admin: 09/23/16 05:52 Dose: Not Given Morphine Sulfate (Morphine) 4 mg IVP Q4 PRN PRN Reason: Pain, moderate (4-7) Stop: 09/25/16 10:16 Last Admin: 09/23/16 21:34 Dose: 4 mg Ondansetron HCl (Zofran Inj) 4 mg IVP Q6 PRN PRN Reason: Nausea/Vomiting Pantoprazole Sodium (Protonix Ec Tab) 40 mg PO DAILY [facility] Results - Vital Signs Recent Vital Signs: Last Vital Signs Temp 97.6 F 09/23/16 21:43 Pulse 87 09/23/16 23:00 Resp 17 09/23/16 23:00 BP 93/50 L 09/23/16 22:55 Pulse Ox 97 09/23/16 23:00 - Labs Result Diagrams: 09/23/16 18:58 09/23/16 10:45 Labs: Laboratory Results - last 24 hr 09/23/16 09/23/16 09/23/16 07:14 07:14 07:14 WBC 15.6 H RBC 4.54 Hgb 11.6 Hct 35.7 MCV 78.8 L MCH 25.6 L MCHC 32.5 L RDW 16.0 H Plt Count 354 MPV 7.1 L PT 14.8 H INR 1.3 APTT 28 D Sodium 140 Potassium 2.9 L Chloride 105 Carbon Dioxide 26 Anion Gap 12 BUN 13 Creatinine 0.5 L Est GFR ( Amer) > 60 Est GFR (Non-Af Amer) > 60 Random Glucose 106 H Calcium 8.7 Total Bilirubin 0.9 AST 45 H D ALT 51 Alkaline Phosphatase 96 Total Protein 6.6 Albumin 3.1 L D Globulin 3.5 Albumin/Globulin Ratio 0.9 L IgG Hepatitis A IgM Ab Hep Bs Antigen Hep B Core IgM Ab Hepatitis C Antibody Blood Type Blood Type Confirm Antibody Screen 09/23/16 09/23/16 09/23/16 10:45 11:28 11:28 WBC RBC Hgb Hct MCV MCH MCHC RDW Plt Count MPV PT INR APTT Sodium Potassium 3.5 L Chloride Carbon Dioxide Anion Gap BUN Creatinine Est GFR ( Amer) Est GFR (Non-Af Amer) Random Glucose Calcium Total Bilirubin AST ALT Alkaline Phosphatase Total Protein Albumin Globulin Albumin/Globulin Ratio IgG 912.5 Hepatitis A IgM Ab Negative Hep Bs Antigen Negative Hep B Core IgM Ab Negative Hepatitis C Antibody Negative Blood Type Blood Type Confirm Antibody Screen 09/23/16 09/23/16 09/23/16 11:34 15:42 18:58 WBC 17.5 H RBC 3.94 Hgb 10.8 L 10.0 L Hct 33.9 L 31.5 L MCV 80.0 L MCH 25.4 L MCHC 31.7 L RDW 16.1 H Plt Count 405 H MPV 7.0 L PT INR APTT Sodium Potassium Chloride Carbon Dioxide Anion Gap BUN Creatinine Est GFR ( Amer) Est GFR (Non-Af Amer) Random Glucose Calcium Total Bilirubin AST ALT Alkaline Phosphatase Total Protein Albumin Globulin Albumin/Globulin Ratio IgG Hepatitis A IgM Ab Hep Bs Antigen Hep B Core IgM Ab Hepatitis C Antibody Blood Type A POSITIVE Blood Type Confirm A POSITIVE Antibody Screen Negative
[2016-09-23] MEDS: Lactated Ringer's 1,000 ML IV SCH (23:30)
[2016-09-24] MEDS: Lactated Ringer's 1,000 ML IV SCH ×4 (03:43→21:45)
[2016-09-24] MEDS: Levothyroxine 75 MCG TAB PO SCH (05:40)
[2016-09-24] MEDS: Piperacill/Tazo 3.375gm in Dex 3.375 GM/50 ML BAG IVPB SCH ×4 (05:41→23:45)
[2016-09-24 05:48] LABS: BASO % 0.4 % (0.0-2.0); EOS # 0.1 K/uL (0.0-0.7); EOS % 0.4 % (0.0-4.0); HEMOGLOBIN 10.1 g/dL (11.0-16.0); LYMPH # 0.9 K/uL (1.0-4.3); LYMPH % 7.7 % (20.0-40.0); MEAN CORPUSCULAR HEMOGLOBIN 26.3 pg (27.0-31.0); MEAN CORPUSCULAR HGB CONC 32.4 g/dL (33.0-37.0); MEAN PLATELET VOLUME 7.4 fL (7.2-11.7); MONO # 0.8 K/uL (0.0-0.8); MONO % 7.4 % (0.0-10.0); NEUT # 9.5 K/uL (1.8-7.0); NEUT % 84.1 % (50.0-75.0); NRBC % 0.1 % (0.0-2.0); PLATELET COUNT 291 K/uL (130-400); RBC 3.86 Mil/uL (3.80-5.20); RED CELL DISTRIBUTION WIDTH 15.7 % (11.5-14.5); WHITE BLOOD COUNT 11.3 K/uL (4.8-10.8)
[2016-09-24 06:00] LABS: ALBUMIN 2.7 g/dL (3.5-5.0)
[2016-09-24 06:02] LABS: GFR AFRICAN-AMERICAN > 60; GFR NON-AFRICAN AMERICAN > 60
[2016-09-24 06:03] LABS: ALB/GLOB RATIO 0.9 (1.0-2.1); ALT/SGPT 61 U/L (9-52); AST/SGOT 103 U/L (14-36); BLOOD UREA NITROGEN 15 mg/dL (7-17); CALCIUM 8.1 mg/dl (8.6-10.4)
--- NOTE | 2016-09-24 06:58 | CP.PCM.PN ---
Subjective - Date & Time of Evaluation Date of Evaluation: 09/24/16 Time of Evaluation: 06:56 - Subjective Subjective: Gen sx: Dr Marcelino Pt S&E in ICU. Pt sent to ICU after mild hypotension in PACU and low HgB requiring 1 unit pRBC. Pt BP has been stable at 100-110 systolic. Making > 30cc urine per hour. Minimal pain in RUQ. Denies N/V, F/C, SOB, LI. Still with cough. Using incentive spirometer. Drinking water but not much more PO intake. Objective - Vital Signs/Intake and Output Vital Signs (last 24 hours): Temp Pulse Resp BP Pulse Ox 98.2 F 79 13 108/64 98 09/24/16 04:00 09/24/16 06:40 09/24/16 06:40 09/24/16 06:32 09/24/16 06:40 Intake and Output: 09/23/16 09/24/16 18:59 06:59 Intake Total 1200 1830 Output Total 270 465 Balance 930 1365 - Medications Medications: Current Medications Acetaminophen (Tylenol 325mg Tab) 650 mg PO Q6 PRN PRN Reason: Fever >100.4 F Amlodipine Besylate (Norvasc) 5 mg PO DAILY [facility] Last Admin: 09/23/16 10:33 Dose: Not Given Fluoxetine HCl (Prozac) 20 mg PO DAILY [facility] Last Admin: 09/23/16 10:34 Dose: Not Given Piperacillin Sod/Tazobactam Sod (Zosyn 3.375 Gm Iv Premix) 3.375 gm in 50 mls @ 100 mls/hr IVPB Q6 [facility] Last Admin: 09/24/16 05:41 Dose: 100 mls/hr Lactated Ringer's (Lactated Ringer's) 1,000 mls @ 125 mls/hr IV .Q8H [facility] Last Admin: 09/24/16 03:43 Dose: Not Given Levothyroxine Sodium (Synthroid) 75 mcg PO DAILY@0630 [facility] Last Admin: 09/24/16 05:40 Dose: Not Given Morphine Sulfate (Morphine) 4 mg IVP Q4 PRN PRN Reason: Pain, moderate (4-7) Stop: 09/25/16 10:16 Last Admin: 09/24/16 04:28 Dose: 4 mg Ondansetron HCl (Zofran Inj) 4 mg IVP Q6 PRN PRN Reason: Nausea/Vomiting Pantoprazole Sodium (Protonix Ec Tab) 40 mg PO DAILY [facility] - Labs Labs: 09/24/16 05:42 09/24/16 05:42 PT 14.8 SECONDS (9.7-12.2) H 09/23/16 07:14 INR 1.3 09/23/16 07:14 APTT 28 SECONDS (21-34) D 09/23/16 07:14 - Constitutional Appears: Non-toxic, No Acute Distress - Eye Exam Eye Exam: Normal appearance - Respiratory Exam Respiratory Exam: absent: Accessory Muscle Use, Respiratory Distress - Cardiovascular Exam Cardiovascular Exam: REGULAR RHYTHM. absent: Tachycardia - GI/Abdominal Exam GI & Abdominal Exam: Soft, Tenderness (RUQ). absent: Distended Additional comments: incisions c/d/i Greg draining serosanguinous - Neurological Exam Neurological Exam: Alert, Awake, Oriented x3 - Psychiatric Exam Psychiatric exam: Normal Affect, Normal Mood Assessment and Plan - Assessment and Plan (Free Text) Assessment: 71F with acute gangrenous cholecystitis; POD#1 s/p lap diana Plan: cont CLD cont LR @ 125 Cont incentive spirometer OOB and ambulating OK to transfer out of ICU will follow closely d/w Dr Chari Jefferson, PGY2
[2016-09-24 07:23] LABS: MAGNESIUM 1.9 mg/dL (1.6-2.3)
--- NOTE | 2016-09-24 07:28 | CP.CCUPN ---
CCU Objective - Vital Signs / Intake & Output Vital Signs (Last 4 hours): Vital Signs Temp Pulse Resp BP Pulse Ox 09/24/16 07:20 81 21 97 09/24/16 07:10 85 25 H 94 L 09/24/16 07:02 85 12 109/58 L 97 09/24/16 07:00 82 19 96 09/24/16 06:50 83 12 09/24/16 06:40 79 13 98 09/24/16 06:32 79 20 108/64 98 09/24/16 06:30 78 20 99 09/24/16 06:20 82 16 99 09/24/16 06:10 72 20 99 09/24/16 06:02 73 19 102/52 L 98 09/24/16 06:00 74 18 100 09/24/16 05:50 75 21 98 09/24/16 05:40 73 19 98 09/24/16 05:33 79 19 103/79 98 09/24/16 05:30 80 22 99 09/24/16 05:20 79 17 99 09/24/16 05:10 76 21 99 09/24/16 05:02 73 19 95/53 L 99 09/24/16 05:00 75 21 99 09/24/16 04:50 75 17 99 09/24/16 04:40 80 15 98 09/24/16 04:32 84 18 90/56 L 95 09/24/16 04:30 85 16 97 09/24/16 04:20 85 12 97 09/24/16 04:10 87 19 09/24/16 04:03 94 H 15 108/63 09/24/16 04:00 98.2 F 86 23 09/24/16 03:50 71 22 98 09/24/16 03:40 72 21 98 09/24/16 03:32 71 20 106/56 L 98 09/24/16 03:30 72 20 98 Intake and Output (Last 8hrs): Intake & Output 09/23/16 09/24/16 09/24/16 22:59 06:59 14:59 Intake Total 340 1490 Output Total 360 550 Balance -20 940 Weight 188 lb Intake: Intake, IV Amount 925 Right Wrist 925 Oral 240 240 Blood Product 100 325 Output: Drainage 310 50 Right Upper Abdomen 50 Urine 50 500 Urine, Voided 500 - Medications Active Medications: Active Medications Generic Name Dose Route Start Last Admin Trade Name Freq PRN Reason Stop Dose Admin Acetaminophen 650 mg 09/22/16 10:31 Tylenol 325mg Tab PO Q6 PRN Fever >100.4 F Amlodipine Besylate 5 mg 09/23/16 10:00 09/23/16 10:33 Norvasc PO Not Given DAILY [facility] Fluoxetine HCl 20 mg 09/23/16 10:00 09/23/16 10:34 Prozac PO Not Given DAILY [facility] Piperacillin Sod/Tazobactam Sod 3.375 gm in 50 mls @ 100 mls/hr 09/22/16 12: 00 09/24/16 05:41 Zosyn 3.375 Gm Iv Premix IVPB 100 mls/hr Q6 [facility] Administration Lactated Ringer's 1,000 mls @ 125 mls/hr 09/23/16 18:45 09/24/16 03:43 Lactated Ringer's IV Not Given .Q8H [facility] Levothyroxine Sodium 75 mcg 09/23/16 06:30 09/24/16 05:40 Synthroid PO Not Given DAILY@0630 [facility] Morphine Sulfate 4 mg 09/23/16 15:06 09/24/16 04:28 Morphine IVP 09/25/16 10:16 4 mg Q4 PRN Administration Pain, moderate (4-7) Ondansetron HCl 4 mg 09/22/16 10:31 Zofran Inj IVP Q6 PRN Nausea/Vomiting Pantoprazole Sodium 40 mg 09/24/16 10:00 Protonix Ec Tab PO DAILY [facility] - Patient Studies Lab Studies: Microbiology Studies 09/23/16 Unknown Gram Stain - Final Gallbladder Lab Studies 09/24/16 09/24/16 09/24/16 Range/Units 05:42 05:42 05:42 WBC 11.3 H (4.8-10.8) K/uL RBC 3.86 (3.80-5.20) Mil/uL Hgb 10.1 L (11.0-16.0) g/dL Hct 31.2 L (34.0-47.0) % MCV 81.0 (81.0-99.0) fL MCH 26.3 L (27.0-31.0) pg MCHC 32.4 L (33.0-37.0) g/dL RDW 15.7 H (11.5-14.5) % Plt Count 291 D (130-400) K/uL MPV 7.4 (7.2-11.7) fL Neut % (Auto) 84.1 H (50.0-75.0) % Lymph % (Auto) 7.7 L (20.0-40.0) % [place] % (Auto) 7.4 (0.0-10.0) % Eos % (Auto) 0.4 (0.0-4.0) % Baso % (Auto) 0.4 (0.0-2.0) % Neut # 9.5 H (1.8-7.0) K/uL Lymph # 0.9 L (1.0-4.3) K/uL [place] # 0.8 (0.0-0.8) K/uL Eos # 0.1 (0.0-0.7) K/uL Baso # 0.0 (0.0-0.2) K/uL PT (9.7-12.2) SECONDS INR APTT (21-34) SECONDS Sodium 134 (132-148) mmol/L Potassium 3.4 L (3.6-5.2) mmol/L Chloride 103 (98-107) mmol/L Carbon Dioxide 25 (22-30) mmol/L Anion Gap 9 L (10-20) BUN 15 (7-17) mg/dL Creatinine 0.5 L (0.7-1.2) MG/DL Est GFR ( Amer) > 60 Est GFR (Non-Af Amer) > 60 Random Glucose 85 (65-105) mg/dL Calcium 8.1 L (8.6-10.4) mg/dl Phosphorus 2.1 L (2.5-4.5) mg/dL Magnesium 1.9 (1.6-2.3) mg/dL Total Bilirubin 1.8 H (0.2-1.3) mg/dL AST 103 H D (14-36) U/L ALT 61 H (9-52) U/L Alkaline Phosphatase 93 (38-126) U/L Total Protein 5.7 L (6.3-8.3) g/dL Albumin 2.7 L (3.5-5.0) g/dL Globulin 3.0 (2.2-3.9) gm/dL Albumin/Globulin Ratio 0.9 L (1.0-2.1) IgG (700.0-1600.0) mg/dL Hepatitis A IgM Ab (NEGATIVE) Hep Bs Antigen (NEGATIVE) Hep B Core IgM Ab (NEGATIVE) Hepatitis C Antibody (NEGATIVE) Blood Type Blood Type Confirm Antibody Screen 09/23/16 09/23/16 09/23/16 Range/Units 18:58 15:42 11:34 WBC 17.5 H (4.8-10.8) K/uL RBC 3.94 (3.80-5.20) Mil/uL Hgb 10.0 L 10.8 L (11.0-16.0) g/dL Hct 31.5 L 33.9 L (34.0-47.0) % MCV 80.0 L (81.0-99.0) fL MCH 25.4 L (27.0-31.0) pg MCHC 31.7 L (33.0-37.0) g/dL RDW 16.1 H (11.5-14.5) % Plt Count 405 H (130-400) K/uL MPV 7.0 L (7.2-11.7) fL Neut % (Auto) (50.0-75.0) % Lymph % (Auto) (20.0-40.0) % [place] % (Auto) (0.0-10.0) % Eos % (Auto) (0.0-4.0) % Baso % (Auto) (0.0-2.0) % Neut # (1.8-7.0) K/uL Lymph # (1.0-4.3) K/uL [place] # (0.0-0.8) K/uL Eos # (0.0-0.7) K/uL Baso # (0.0-0.2) K/uL PT (9.7-12.2) SECONDS INR APTT (21-34) SECONDS Sodium (132-148) mmol/L Potassium (3.6-5.2) mmol/L Chloride (98-107) mmol/L Carbon Dioxide (22-30) mmol/L Anion Gap (10-20) BUN (7-17) mg/dL Creatinine (0.7-1.2) MG/DL Est GFR ( Amer) Est GFR (Non-Af Amer) Random Glucose (65-105) mg/dL Calcium (8.6-10.4) mg/dl Phosphorus (2.5-4.5) mg/dL Magnesium (1.6-2.3) mg/dL Total Bilirubin (0.2-1.3) mg/dL AST (14-36) U/L ALT (9-52) U/L Alkaline Phosphatase (38-126) U/L Total Protein (6.3-8.3) g/dL Albumin (3.5-5.0) g/dL Globulin (2.2-3.9) gm/dL Albumin/Globulin Ratio (1.0-2.1) IgG (700.0-1600.0) mg/dL Hepatitis A IgM Ab (NEGATIVE) Hep Bs Antigen (NEGATIVE) Hep B Core IgM Ab (NEGATIVE) Hepatitis C Antibody (NEGATIVE) Blood Type A POSITIVE Blood Type Confirm A POSITIVE Antibody Screen Negative 09/23/16 09/23/16 09/23/16 Range/Units 11:28 11:28 10:45 WBC (4.8-10.8) K/uL RBC (3.80-5.20) Mil/uL Hgb (11.0-16.0) g/dL Hct (34.0-47.0) % MCV (81.0-99.0) fL MCH (27.0-31.0) pg MCHC (33.0-37.0) g/dL RDW (11.5-14.5) % Plt Count (130-400) K/uL MPV (7.2-11.7) fL Neut % (Auto) (50.0-75.0) % Lymph % (Auto) (20.0-40.0) % [place] % (Auto) (0.0-10.0) % Eos % (Auto) (0.0-4.0) % Baso % (Auto) (0.0-2.0) % Neut # (1.8-7.0) K/uL Lymph # (1.0-4.3) K/uL [place] # (0.0-0.8) K/uL Eos # (0.0-0.7) K/uL Baso # (0.0-0.2) K/uL PT (9.7-12.2) SECONDS INR APTT (21-34) SECONDS Sodium (132-148) mmol/L Potassium 3.5 L (3.6-5.2) mmol/L Chloride (98-107) mmol/L Carbon Dioxide (22-30) mmol/L Anion Gap (10-20) BUN (7-17) mg/dL Creatinine (0.7-1.2) MG/DL Est GFR ( Amer) Est GFR (Non-Af Amer) Random Glucose (65-105) mg/dL Calcium (8.6-10.4) mg/dl Phosphorus (2.5-4.5) mg/dL Magnesium (1.6-2.3) mg/dL Total Bilirubin (0.2-1.3) mg/dL AST (14-36) U/L ALT (9-52) U/L Alkaline Phosphatase (38-126) U/L Total Protein (6.3-8.3) g/dL Albumin (3.5-5.0) g/dL Globulin (2.2-3.9) gm/dL Albumin/Globulin Ratio (1.0-2.1) IgG 912.5 (700.0-1600.0) mg/dL Hepatitis A IgM Ab Negative (NEGATIVE) Hep Bs Antigen Negative (NEGATIVE) Hep B Core IgM Ab Negative (NEGATIVE) Hepatitis C Antibody Negative (NEGATIVE) Blood Type Blood Type Confirm Antibody Screen 09/23/16 09/23/16 Range/Units 07:14 07:14 WBC (4.8-10.8) K/uL RBC (3.80-5.20) Mil/uL Hgb (11.0-16.0) g/dL Hct (34.0-47.0) % MCV (81.0-99.0) fL MCH (27.0-31.0) pg MCHC (33.0-37.0) g/dL RDW (11.5-14.5) % Plt Count (130-400) K/uL MPV (7.2-11.7) fL Neut % (Auto) (50.0-75.0) % Lymph % (Auto) (20.0-40.0) % [place] % (Auto) (0.0-10.0) % Eos % (Auto) (0.0-4.0) % Baso % (Auto) (0.0-2.0) % Neut # (1.8-7.0) K/uL Lymph # (1.0-4.3) K/uL [place] # (0.0-0.8) K/uL Eos # (0.0-0.7) K/uL Baso # (0.0-0.2) K/uL PT 14.8 H (9.7-12.2) SECONDS INR 1.3 APTT 28 D (21-34) SECONDS Sodium 140 (132-148) mmol/L Potassium 2.9 L (3.6-5.2) mmol/L Chloride 105 (98-107) mmol/L Carbon Dioxide 26 (22-30) mmol/L Anion Gap 12 (10-20) BUN 13 (7-17) mg/dL Creatinine 0.5 L (0.7-1.2) MG/DL Est GFR ( Amer) > 60 Est GFR (Non-Af Amer) > 60 Random Glucose 106 H (65-105) mg/dL Calcium 8.7 (8.6-10.4) mg/dl Phosphorus (2.5-4.5) mg/dL Magnesium (1.6-2.3) mg/dL Total Bilirubin 0.9 (0.2-1.3) mg/dL AST 45 H D (14-36) U/L ALT 51 (9-52) U/L Alkaline Phosphatase 96 (38-126) U/L Total Protein 6.6 (6.3-8.3) g/dL Albumin 3.1 L D (3.5-5.0) g/dL Globulin 3.5 (2.2-3.9) gm/dL Albumin/Globulin Ratio 0.9 L (1.0-2.1) IgG (700.0-1600.0) mg/dL Hepatitis A IgM Ab (NEGATIVE) Hep Bs Antigen (NEGATIVE) Hep B Core IgM Ab (NEGATIVE) Hepatitis C Antibody (NEGATIVE) Blood Type Blood Type Confirm Antibody Screen Laboratory Results - last 24 hr 09/23/16 09/23/16 09/23/16 07:14 07:14 10:45 WBC RBC Hgb Hct MCV MCH MCHC RDW Plt Count MPV Neut % (Auto) Lymph % (Auto) [place] % (Auto) Eos % (Auto) Baso % (Auto) Neut # Lymph # [place] # Eos # Baso # PT 14.8 H INR 1.3 APTT 28 D Sodium 140 Potassium 2.9 L 3.5 L Chloride 105 Carbon Dioxide 26 Anion Gap 12 BUN 13 Creatinine 0.5 L Est GFR ( Amer) > 60 Est GFR (Non-Af Amer) > 60 Random Glucose 106 H Calcium 8.7 Phosphorus Magnesium Total Bilirubin 0.9 AST 45 H D ALT 51 Alkaline Phosphatase 96 Total Protein 6.6 Albumin 3.1 L D Globulin 3.5 Albumin/Globulin Ratio 0.9 L IgG Hepatitis A IgM Ab Hep Bs Antigen Hep B Core IgM Ab Hepatitis C Antibody Blood Type Blood Type Confirm Antibody Screen 09/23/16 09/23/16 09/23/16 11:28 11:28 11:34 WBC RBC Hgb Hct MCV MCH MCHC RDW Plt Count MPV Neut % (Auto) Lymph % (Auto) [place] % (Auto) Eos % (Auto) Baso % (Auto) Neut # Lymph # [place] # Eos # Baso # PT INR APTT Sodium Potassium Chloride Carbon Dioxide Anion Gap BUN Creatinine Est GFR ( Amer) Est GFR (Non-Af Amer) Random Glucose Calcium Phosphorus Magnesium Total Bilirubin AST ALT Alkaline Phosphatase Total Protein Albumin Globulin Albumin/Globulin Ratio IgG 912.5 Hepatitis A IgM Ab Negative Hep Bs Antigen Negative Hep B Core IgM Ab Negative Hepatitis C Antibody Negative Blood Type A POSITIVE Blood Type Confirm A POSITIVE Antibody Screen Negative 09/23/16 09/23/16 09/24/16 15:42 18:58 05:42 WBC 17.5 H RBC 3.94 Hgb 10.8 L 10.0 L Hct 33.9 L 31.5 L MCV 80.0 L MCH 25.4 L MCHC 31.7 L RDW 16.1 H Plt Count 405 H MPV 7.0 L Neut % (Auto) Lymph % (Auto) [place] % (Auto) Eos % (Auto) Baso % (Auto) Neut # Lymph # [place] # Eos # Baso # PT INR APTT Sodium 134 Potassium 3.4 L Chloride 103 Carbon Dioxide 25 Anion Gap 9 L BUN 15 Creatinine 0.5 L Est GFR ( Amer) > 60 Est GFR (Non-Af Amer) > 60 Random Glucose 85 Calcium 8.1 L Phosphorus Magnesium Total Bilirubin 1.8 H AST 103 H D ALT 61 H Alkaline Phosphatase 93 Total Protein 5.7 L Albumin 2.7 L Globulin 3.0 Albumin/Globulin Ratio 0.9 L IgG Hepatitis A IgM Ab Hep Bs Antigen Hep B Core IgM Ab Hepatitis C Antibody Blood Type Blood Type Confirm Antibody Screen 09/24/16 09/24/16 05:42 05:42 WBC 11.3 H RBC 3.86 Hgb 10.1 L Hct 31.2 L MCV 81.0 MCH 26.3 L MCHC 32.4 L RDW 15.7 H Plt Count 291 D MPV 7.4 Neut % (Auto) 84.1 H Lymph % (Auto) 7.7 L [place] % (Auto) 7.4 Eos % (Auto) 0.4 Baso % (Auto) 0.4 Neut # 9.5 H Lymph # 0.9 L [place] # 0.8 Eos # 0.1 Baso # 0.0 PT INR APTT Sodium Potassium Chloride Carbon Dioxide Anion Gap BUN Creatinine Est GFR ( Amer) Est GFR (Non-Af Amer) Random Glucose Calcium Phosphorus 2.1 L Magnesium 1.9 Total Bilirubin AST ALT Alkaline Phosphatase Total Protein Albumin Globulin Albumin/Globulin Ratio IgG Hepatitis A IgM Ab Hep Bs Antigen Hep B Core IgM Ab Hepatitis C Antibody Blood Type Blood Type Confirm Antibody Screen Critical Care Progress Note - Nutrition Nutrition: Nutrition Category Date Time Status Liquid Diet [DIET] Diets 09/23/16 Breakfast Active
--- NOTE | 2016-09-24 07:28 | CP.PCM.CON ---
History of Present Illness - History of Present Illness History of Present Illness: ICU Consult note Reason for consult: EBL 600cc in OR and mild hypotension in PACU 71yo female with PMHx significant for hypothyroidism, HTN and GERD who presented to the ED 09/22 with abdominal pain that started after dinner. In the ER she had CXR, CT chest which revealed a [id number] left lingula lung mass, pulmonary nodules, emphysema and U/S abdomen revealed fatty liver with findings c/w acute cholecystitis. On ROS on admission patient admitted to to subjective fevers, nausea, vomiting but denies any change in bowel habits, weight loss, hematemesis, hematochezia, melena. Patient was taken to OR 09/23 to have lap cholecystectomy and was found to have acute gangrenous cholecystitis. Patient had 600cc EBL adn had gallbladder and gallstones removed and bile fluid cultured. Patient had fadumo drain placed postop. PMHx: hypothyroidism, HTN and GERD PSHx: x 2 FHx: Discussed with patient and she denies any significant family history Social: Denies tobacco, EtOH or illicit drug use Endo: Denies any prior endoscopy/colonoscopy - has refused screening colonoscopy previously Past Patient History - Past Medical History & Family History Past Medical History?: Yes - Past Social History Smoking Status: Never Smoked - CARDIAC Hx Cardiac Disorders: Yes Hx Hypertension: Yes - PULMONARY Hx Respiratory Disorders: No - NEUROLOGICAL Hx Neurological Disorder: No - HEENT Hx HEENT Problems: No - RENAL Hx Chronic Kidney Disease: No - ENDOCRINE/METABOLIC Hx Endocrine Disorders: Yes Hx Hypothyroidism: Yes - HEMATOLOGICAL/ONCOLOGICAL Hx Blood Disorders: No - INTEGUMENTARY Hx Dermatological Problems: No - MUSCULOSKELETAL/RHEUMATOLOGICAL Hx Arthritis: Yes Hx Falls: No Hx Fractures: Yes - GASTROINTESTINAL Hx Gastrointestinal Disorders: No - GENITOURINARY/GYNECOLOGICAL Hx Genitourinary Disorders: No - PSYCHIATRIC Hx Psychophysiologic Disorder: Yes Hx Substance Use: No - SURGICAL HISTORY Hx Surgeries: No - ANESTHESIA Hx Anesthesia: Yes Hx Anesthesia Reactions: No Hx Malignant Hyperthermia: No Has any member of the family had a problem w/ anesthesia?: No Meds Allergies/Adverse Reactions: Allergies Allergy/AdvReac Type Severity Reaction Status Date / Time FISH Allergy VOMITING Verified 09/23/16 23:09 iodine Allergy VOMITING Verified 09/23/16 23:09 amlodipine [From Norvasc] AdvReac DIZZINESS Verified 09/24/16 06:18 levothyroxine sodium AdvReac PAIN Verified 09/24/16 06:17 [From Synthroid] - Medications Medications: Current Medications Acetaminophen (Tylenol 325mg Tab) 650 mg PO Q6 PRN PRN Reason: Fever >100.4 F Amlodipine Besylate (Norvasc) 5 mg PO DAILY [facility] Last Admin: 09/23/16 10:33 Dose: Not Given Fluoxetine HCl (Prozac) 20 mg PO DAILY [facility] Last Admin: 09/23/16 10:34 Dose: Not Given Piperacillin Sod/Tazobactam Sod (Zosyn 3.375 Gm Iv Premix) 3.375 gm in 50 mls @ 100 mls/hr IVPB Q6 [facility] Last Admin: 09/24/16 05:41 Dose: 100 mls/hr Lactated Ringer's (Lactated Ringer's) 1,000 mls @ 125 mls/hr IV .Q8H [facility] Last Admin: 09/24/16 03:43 Dose: Not Given Levothyroxine Sodium (Synthroid) 75 mcg PO DAILY@0630 [facility] Last Admin: 09/24/16 05:40 Dose: Not Given Morphine Sulfate (Morphine) 4 mg IVP Q4 PRN PRN Reason: Pain, moderate (4-7) Stop: 09/25/16 10:16 Last Admin: 09/24/16 04:28 Dose: 4 mg Ondansetron HCl (Zofran Inj) 4 mg IVP Q6 PRN PRN Reason: Nausea/Vomiting Pantoprazole Sodium (Protonix Ec Tab) 40 mg PO DAILY [facility] Results - Vital Signs Recent Vital Signs: Last Vital Signs Temp 98.2 F 09/24/16 04:00 Pulse 81 09/24/16 07:20 Resp 21 09/24/16 07:20 BP 109/58 L 09/24/16 07:02 Pulse Ox 97 09/24/16 07:20 - Labs Result Diagrams: 09/24/16 05:42 09/24/16 05:42 Labs: Laboratory Results - last 24 hr 09/23/16 09/23/16 09/23/16 07:14 07:14 10:45 WBC RBC Hgb Hct MCV MCH MCHC RDW Plt Count MPV Neut % (Auto) Lymph % (Auto) [place] % (Auto) Eos % (Auto) Baso % (Auto) Neut # Lymph # [place] # Eos # Baso # PT 14.8 H INR 1.3 APTT 28 D Sodium 140 Potassium 2.9 L 3.5 L Chloride 105 Carbon Dioxide 26 Anion Gap 12 BUN 13 Creatinine 0.5 L Est GFR ( Amer) > 60 Est GFR (Non-Af Amer) > 60 Random Glucose 106 H Calcium 8.7 Phosphorus Magnesium Total Bilirubin 0.9 AST 45 H D ALT 51 Alkaline Phosphatase 96 Total Protein 6.6 Albumin 3.1 L D Globulin 3.5 Albumin/Globulin Ratio 0.9 L IgG Hepatitis A IgM Ab Hep Bs Antigen Hep B Core IgM Ab Hepatitis C Antibody Blood Type Blood Type Confirm Antibody Screen 09/23/16 09/23/16 09/23/16 11:28 11:28 11:34 WBC RBC Hgb Hct MCV MCH MCHC RDW Plt Count MPV Neut % (Auto) Lymph % (Auto) [place] % (Auto) Eos % (Auto) Baso % (Auto) Neut # Lymph # [place] # Eos # Baso # PT INR APTT Sodium Potassium Chloride Carbon Dioxide Anion Gap BUN Creatinine Est GFR ( Amer) Est GFR (Non-Af Amer) Random Glucose Calcium Phosphorus Magnesium Total Bilirubin AST ALT Alkaline Phosphatase Total Protein Albumin Globulin Albumin/Globulin Ratio IgG 912.5 Hepatitis A IgM Ab Negative Hep Bs Antigen Negative Hep B Core IgM Ab Negative Hepatitis C Antibody Negative Blood Type A POSITIVE Blood Type Confirm A POSITIVE Antibody Screen Negative 09/23/16 09/23/16 09/24/16 15:42 18:58 05:42 WBC 17.5 H RBC 3.94 Hgb 10.8 L 10.0 L Hct 33.9 L 31.5 L MCV 80.0 L MCH 25.4 L MCHC 31.7 L RDW 16.1 H Plt Count 405 H MPV 7.0 L Neut % (Auto) Lymph % (Auto) [place] % (Auto) Eos % (Auto) Baso % (Auto) Neut # Lymph # [place] # Eos # Baso # PT INR APTT Sodium 134 Potassium 3.4 L Chloride 103 Carbon Dioxide 25 Anion Gap 9 L BUN 15 Creatinine 0.5 L Est GFR ( Amer) > 60 Est GFR (Non-Af Amer) > 60 Random Glucose 85 Calcium 8.1 L Phosphorus Magnesium Total Bilirubin 1.8 H AST 103 H D ALT 61 H Alkaline Phosphatase 93 Total Protein 5.7 L Albumin 2.7 L Globulin 3.0 Albumin/Globulin Ratio 0.9 L IgG Hepatitis A IgM Ab Hep Bs Antigen Hep B Core IgM Ab Hepatitis C Antibody Blood Type Blood Type Confirm Antibody Screen 09/24/16 09/24/16 05:42 05:42 WBC 11.3 H RBC 3.86 Hgb 10.1 L Hct 31.2 L MCV 81.0 MCH 26.3 L MCHC 32.4 L RDW 15.7 H Plt Count 291 D MPV 7.4 Neut % (Auto) 84.1 H Lymph % (Auto) 7.7 L [place] % (Auto) 7.4 Eos % (Auto) 0.4 Baso % (Auto) 0.4 Neut # 9.5 H Lymph # 0.9 L [place] # 0.8 Eos # 0.1 Baso # 0.0 PT INR APTT Sodium Potassium Chloride Carbon Dioxide Anion Gap BUN Creatinine Est GFR ( Amer) Est GFR (Non-Af Amer) Random Glucose Calcium Phosphorus 2.1 L Magnesium 1.9 Total Bilirubin AST ALT Alkaline Phosphatase Total Protein Albumin Globulin Albumin/Globulin Ratio IgG Hepatitis A IgM Ab Hep Bs Antigen Hep B Core IgM Ab Hepatitis C Antibody Blood Type Blood Type Confirm Antibody Screen
[2016-09-24 08:12] LABS: BANDS 4 % (0-2); EOSINOPHIL 1 % (0-4); LYMPHOCYTE 5 % (20-40); MONOCYTE 7 % (0-10); NEUTROPHIL 83 % (50-75); PLATELET ESTIMATE NORMAL (NORMAL); TOTAL CELLS COUNTED 100
[2016-09-24 08:13] LABS: ANISOCYTOSIS SLIGHT; TOXIC GRANULATION PRESENT
[2016-09-24 08:14] LABS: OVALOCYTES SLIGHT
[2016-09-24] MEDS: Pantoprazole 40 mg EC Tab PO SCH (09:39)
[2016-09-24] MEDS ORDERED: Potassium Chloride 20 mEq ER Tab PO ONE ×2 (09:51→11:15)
--- NOTE | 2016-09-24 10:56 | RAD ---
PROCEDURE: HISTORY: CHOLECYSTITIS COMPARISON: None TECHNIQUE: Total fluoroscopic time utilized during the procedure: 32.6 seconds Total dose 7.31 mGy cm squared FINDINGS: Submitted images from the current procedure: 9 Please refer to the physician's notes performing the procedure. IMPRESSION: Less than 1 hour fluoroscopic time utilized during performance of the procedure
--- NOTE | 2016-09-24 11:14 | CP.PCM.PN ---
Subjective - Date & Time of Evaluation Date of Evaluation: 09/24/16 Time of Evaluation: 13:00 - Subjective Subjective: clinically same Objective - Vital Signs/Intake and Output Vital Signs (last 24 hours): Temp Pulse Resp BP Pulse Ox 97.7 F 73 21 110/59 L 96 09/24/16 08:00 09/24/16 10:30 09/24/16 10:30 09/24/16 10:08 09/24/16 10:30 Intake and Output: 09/24/16 09/24/16 06:59 18:59 Intake Total 1830 870 Output Total 640 150 Balance 1190 720 - Medications Medications: Current Medications Acetaminophen (Tylenol 325mg Tab) 650 mg PO Q6 PRN PRN Reason: Fever >100.4 F Amlodipine Besylate (Norvasc) 5 mg PO DAILY [facility] Last Admin: 09/24/16 10:38 Dose: Not Given Fluoxetine HCl (Prozac) 20 mg PO DAILY [facility] Last Admin: 09/24/16 09:40 Dose: Not Given Piperacillin Sod/Tazobactam Sod (Zosyn 3.375 Gm Iv Premix) 3.375 gm in 50 mls @ 100 mls/hr IVPB Q6 [facility] Last Admin: 09/24/16 05:41 Dose: 100 mls/hr Lactated Ringer's (Lactated Ringer's) 1,000 mls @ 125 mls/hr IV .Q8H [facility] Last Admin: 09/24/16 03:43 Dose: Not Given Levothyroxine Sodium (Synthroid) 75 mcg PO DAILY@0630 [facility] Last Admin: 09/24/16 05:40 Dose: Not Given Morphine Sulfate (Morphine) 4 mg IVP Q4 PRN PRN Reason: Pain, moderate (4-7) Stop: 09/25/16 10:16 Last Admin: 09/24/16 08:40 Dose: 4 mg Ondansetron HCl (Zofran Inj) 4 mg IVP Q6 PRN PRN Reason: Nausea/Vomiting Pantoprazole Sodium (Protonix Ec Tab) 40 mg PO DAILY [facility] Last Admin: 09/24/16 09:39 Dose: Not Given Potassium Chloride (K-Dur 20 Meq Er Tab) 40 meq PO ONCE ONE Stop: 09/24/16 11:16 - Labs Labs: 09/24/16 05:42 09/24/16 05:42 PT 14.8 SECONDS (9.7-12.2) H 09/23/16 07:14 INR 1.3 09/23/16 07:14 APTT 28 SECONDS (21-34) D 09/23/16 07:14 - Constitutional Appears: Well - Head Exam Head Exam: ATRAUMATIC, NORMAL INSPECTION, NORMOCEPHALIC - Eye Exam Eye Exam: EOMI, Normal appearance, PERRL Pupil Exam: NORMAL ACCOMODATION, PERRL - ENT Exam ENT Exam: Mucous Membranes Moist, Normal Exam - Neck Exam Neck Exam: Full ROM, Normal Inspection. absent: Lymphadenopathy - Respiratory Exam Respiratory Exam: Decreased Breath Sounds - Cardiovascular Exam Cardiovascular Exam: REGULAR RHYTHM, +S1, +S2 - GI/Abdominal Exam GI & Abdominal Exam: Soft, Diminished Bowel Sounds - Rectal Exam Rectal Exam: Deferred
--- NOTE | 2016-09-24 18:00 | CP.PCM.PN ---
Subjective - Date & Time of Evaluation Date of Evaluation: 09/24/16 Time of Evaluation: 17:57 - Subjective Subjective: Pt seen and examined No events overnight s/p Laproscopic Cholecystectomy c/o cough Objective - Vital Signs/Intake and Output Vital Signs (last 24 hours): Temp Pulse Resp BP Pulse Ox 98.9 F 90 20 113/71 97 09/24/16 15:53 09/24/16 15:53 09/24/16 15:53 09/24/16 15:53 09/24/16 15:53 Intake and Output: 09/24/16 09/24/16 06:59 18:59 Intake Total 1830 1840 Output Total 640 215 Balance 1190 1625 - Medications Medications: Current Medications Acetaminophen (Tylenol 325mg Tab) 650 mg PO Q6 PRN PRN Reason: Fever >100.4 F Acetylcysteine (Acetylcysteine 20%) 4 ml INH RQ6 [facility] Albuterol/Ipratropium (Duoneb 3 Mg/0.5 Mg (3 Ml) Ud) 3 ml INH RQ6 [facility] Amlodipine Besylate (Norvasc) 5 mg PO DAILY [facility] Last Admin: 09/24/16 10:38 Dose: Not Given Enoxaparin Sodium (Lovenox) 30 mg SC DAILY [facility] Fluoxetine HCl (Prozac) 20 mg PO DAILY [facility] Last Admin: 09/24/16 09:40 Dose: Not Given Piperacillin Sod/Tazobactam Sod (Zosyn 3.375 Gm Iv Premix) 3.375 gm in 50 mls @ 100 mls/hr IVPB Q6 [facility] Last Admin: 09/24/16 12:30 Dose: 100 mls/hr Lactated Ringer's (Lactated Ringer's) 1,000 mls @ 50 mls/hr IV .Q20H [facility] Levothyroxine Sodium (Synthroid) 75 mcg PO DAILY@0630 [facility] Last Admin: 09/24/16 05:40 Dose: Not Given Morphine Sulfate (Morphine) 4 mg IVP Q4 PRN PRN Reason: Pain, moderate (4-7) Stop: 09/25/16 10:16 Last Admin: 09/24/16 08:40 Dose: 4 mg Ondansetron HCl (Zofran Inj) 4 mg IVP Q6 PRN PRN Reason: Nausea/Vomiting Pantoprazole Sodium (Protonix Ec Tab) 40 mg PO DAILY [facility] Last Admin: 09/24/16 09:39 Dose: Not Given - Labs Labs: 09/24/16 05:42 09/24/16 05:42 PT 14.8 SECONDS (9.7-12.2) H 09/23/16 07:14 INR 1.3 09/23/16 07:14 APTT 28 SECONDS (21-34) D 09/23/16 07:14 - Head Exam Head Exam: NORMAL INSPECTION - Eye Exam Eye Exam: Normal appearance - ENT Exam ENT Exam: Mucous Membranes Moist - Respiratory Exam Respiratory Exam: Decreased Breath Sounds, Prolonged Expiratory Phase - Cardiovascular Exam Cardiovascular Exam: REGULAR RHYTHM, +S1, +S2 - GI/Abdominal Exam GI & Abdominal Exam: Soft, Hypoactive Bowel Sounds - Neurological Exam Neurological Exam: Alert, Oriented x3 Assessment and Plan - Assessment and Plan (Free Text) Assessment: Lung Mass Acute Cholecystitis - s/p lap diana COPD Continue Abx Bronchodilators O2 Will need lung biopsy Will arrange it as out pt
[2016-09-24] MEDS: Acetylcysteine 20% Inhal Soln (4ml) INH SCH (19:22)
[2016-09-24] MEDS: Albuterol-Ipratrop 3 mg / 0.5 (3 ml) UD INH SCH (19:22)
--- NOTE | 2016-09-24 21:32 | CP.PCM.PN ---
Subjective - Date & Time of Evaluation Date of Evaluation: 09/24/16 Time of Evaluation: 08:50 - Subjective Subjective: Patient seen and evaluated Comfortable Denies chest pain and dyspnea Objective - Vital Signs/Intake and Output Vital Signs (last 24 hours): Temp Pulse Resp BP Pulse Ox 98.9 F 90 20 113/71 97 09/24/16 15:53 09/24/16 19:28 09/24/16 15:53 09/24/16 15:53 09/24/16 15:53 Intake and Output: 09/24/16 09/25/16 18:59 06:59 Intake Total 1840 Output Total 215 Balance 1625 - Medications Medications: Current Medications Acetaminophen (Tylenol 325mg Tab) 650 mg PO Q6 PRN PRN Reason: Fever >100.4 F Acetylcysteine (Acetylcysteine 20%) 4 ml INH RQ6 [facility] Last Admin: 09/24/16 19:22 Dose: 4 ml Albuterol/Ipratropium (Duoneb 3 Mg/0.5 Mg (3 Ml) Ud) 3 ml INH RQ6 [facility] Last Admin: 09/24/16 19:22 Dose: 3 ml Amlodipine Besylate (Norvasc) 5 mg PO DAILY [facility] Last Admin: 09/24/16 10:38 Dose: Not Given Enoxaparin Sodium (Lovenox) 30 mg SC DAILY [facility] Fluoxetine HCl (Prozac) 20 mg PO DAILY [facility] Last Admin: 09/24/16 09:40 Dose: Not Given Piperacillin Sod/Tazobactam Sod (Zosyn 3.375 Gm Iv Premix) 3.375 gm in 50 mls @ 100 mls/hr IVPB Q6 [facility] Last Admin: 09/24/16 18:05 Dose: 100 mls/hr Lactated Ringer's (Lactated Ringer's) 1,000 mls @ 50 mls/hr IV .Q20H [facility] Last Admin: 09/24/16 20:19 Dose: 50 mls/hr Levothyroxine Sodium (Synthroid) 75 mcg PO DAILY@0630 [facility] Last Admin: 09/24/16 05:40 Dose: Not Given Morphine Sulfate (Morphine) 4 mg IVP Q4 PRN PRN Reason: Pain, moderate (4-7) Stop: 09/25/16 10:16 Last Admin: 09/24/16 19:43 Dose: 4 mg Ondansetron HCl (Zofran Inj) 4 mg IVP Q6 PRN PRN Reason: Nausea/Vomiting Pantoprazole Sodium (Protonix Ec Tab) 40 mg PO DAILY [facility] Last Admin: 09/24/16 09:39 Dose: Not Given - Labs Labs: 09/24/16 05:42 09/24/16 05:42 PT 14.8 SECONDS (9.7-12.2) H 09/23/16 07:14 INR 1.3 09/23/16 07:14 APTT 28 SECONDS (21-34) D 09/23/16 07:14
[2016-09-24] MEDS ORDERED: Potassium Chloride 20 mEq ER Tab PO STA (23:03)
[2016-09-25] MEDS: Acetylcysteine 20% Inhal Soln (4ml) INH SCH ×2 (01:17→07:42)
[2016-09-25] MEDS: Albuterol-Ipratrop 3 mg / 0.5 (3 ml) UD INH SCH ×2 (01:17→07:42)
[2016-09-25] MEDS: Piperacill/Tazo 3.375gm in Dex 3.375 GM/50 ML BAG IVPB SCH ×2 (05:44→13:00)
[2016-09-25 06:39] LABS: BASO % 0.4 % (0.0-2.0); EOS # 0.1 K/uL (0.0-0.7); HEMOGLOBIN 10.7 g/dL (11.0-16.0); LYMPH # 1.4 K/uL (1.0-4.3); LYMPH % 14.8 % (20.0-40.0); MEAN CELL VOLUME 80.7 fL (81.0-99.0); MEAN CORPUSCULAR HEMOGLOBIN 25.4 pg (27.0-31.0); MEAN CORPUSCULAR HGB CONC 31.5 g/dL (33.0-37.0); MEAN PLATELET VOLUME 7.4 fL (7.2-11.7); MONO # 0.9 K/uL (0.0-0.8); MONO % 9.3 % (0.0-10.0); NEUT # 7.2 K/uL (1.8-7.0); NEUT % 74.5 % (50.0-75.0); NRBC % 0.1 % (0.0-2.0); RBC 4.22 Mil/uL (3.80-5.20); RED CELL DISTRIBUTION WIDTH 16.1 % (11.5-14.5); WHITE BLOOD COUNT 9.7 K/uL (4.8-10.8)
[2016-09-25 07:23] LABS: ALBUMIN 2.9 g/dL (3.5-5.0)
[2016-09-25 07:25] LABS: GFR AFRICAN-AMERICAN > 60; GFR NON-AFRICAN AMERICAN > 60
[2016-09-25 07:26] LABS: ALB/GLOB RATIO 0.9 (1.0-2.1); AST/SGOT 65 U/L (14-36)
[2016-09-25 07:27] LABS: ALT/SGPT 65 U/L (9-52); BLOOD UREA NITROGEN 8 mg/dL (7-17); CALCIUM 7.9 mg/dl (8.6-10.4)
--- NOTE | 2016-09-25 08:00 | CP.PCM.PN ---
Subjective - Date & Time of Evaluation Date of Evaluation: 09/25/16 Time of Evaluation: 07:57 - Subjective Subjective: Gen Sx: Dr Marcelino Pt S&E. NAUvaldoO. OOB and ambulating. Tolerating regular diet. Pain well controlled. Still has cough. PT states she wants to go home. Objective - Vital Signs/Intake and Output Vital Signs (last 24 hours): Temp Pulse Resp BP Pulse Ox 97.8 F 81 20 121/78 95 09/24/16 23:00 09/24/16 23:00 09/24/16 23:00 09/24/16 23:00 09/24/16 23:00 Intake and Output: 09/25/16 09/25/16 06:59 18:59 Output Total 75 Balance -75 - Medications Medications: Current Medications Acetaminophen (Tylenol 325mg Tab) 650 mg PO Q6 PRN PRN Reason: Fever >100.4 F Acetylcysteine (Acetylcysteine 20%) 4 ml INH RQ6 [facility] Last Admin: 09/25/16 07:42 Dose: 4 ml Albuterol/Ipratropium (Duoneb 3 Mg/0.5 Mg (3 Ml) Ud) 3 ml INH RQ6 [facility] Last Admin: 09/25/16 07:42 Dose: 3 ml Amlodipine Besylate (Norvasc) 5 mg PO DAILY [facility] Last Admin: 09/24/16 10:38 Dose: Not Given Enoxaparin Sodium (Lovenox) 30 mg SC DAILY [facility] Fluoxetine HCl (Prozac) 20 mg PO DAILY [facility] Last Admin: 09/24/16 09:40 Dose: Not Given Piperacillin Sod/Tazobactam Sod (Zosyn 3.375 Gm Iv Premix) 3.375 gm in 50 mls @ 100 mls/hr IVPB Q6 [facility] Last Admin: 09/25/16 05:44 Dose: 100 mls/hr Lactated Ringer's (Lactated Ringer's) 1,000 mls @ 50 mls/hr IV .Q20H [facility] Last Admin: 09/24/16 21:45 Dose: 50 mls/hr Levothyroxine Sodium (Synthroid) 75 mcg PO DAILY@0630 [facility] Last Admin: 09/24/16 05:40 Dose: Not Given Morphine Sulfate (Morphine) 4 mg IVP Q4 PRN PRN Reason: Pain, moderate (4-7) Stop: 09/25/16 10:16 Last Admin: 09/24/16 23:45 Dose: 4 mg Ondansetron HCl (Zofran Inj) 4 mg IVP Q6 PRN PRN Reason: Nausea/Vomiting Pantoprazole Sodium (Protonix Ec Tab) 40 mg PO DAILY [facility] Last Admin: 09/24/16 09:39 Dose: Not Given - Labs Labs: 09/25/16 06:18 09/25/16 06:18 PT 14.8 SECONDS (9.7-12.2) H 09/23/16 07:14 INR 1.3 09/23/16 07:14 APTT 28 SECONDS (21-34) D 09/23/16 07:14 - Constitutional Appears: Non-toxic, No Acute Distress - Head Exam Head Exam: NORMOCEPHALIC - Eye Exam Eye Exam: Normal appearance - Respiratory Exam Respiratory Exam: absent: Accessory Muscle Use, Respiratory Distress - Cardiovascular Exam Cardiovascular Exam: REGULAR RHYTHM. absent: Tachycardia - GI/Abdominal Exam GI & Abdominal Exam: Soft. absent: Distended, Tenderness Additional comments: incisions c/d/i Greg removed at bedside - Neurological Exam Neurological Exam: Alert, Awake, Oriented x3 - Psychiatric Exam Psychiatric exam: Normal Affect, Normal Mood - Skin Skin Exam: Normal Color, Warm Assessment and Plan - Assessment and Plan (Free Text) Assessment: 71F w/ gangrenous cholecystitis, POD#2 s/p lap diana Plan: dressing changed greg removed will switch to PO pain meds clear for D/C from sx post-op instructions provided f/u in office next week f/u with pulm Re: lung mass d/w Dr Chari Jefferson, PGY2
[2016-09-25] MEDS ORDERED: Oxycodone/Acetaminophen 5/325 mg Tab PO PRN (08:08)
[2016-09-25] MEDS: Pantoprazole 40 mg EC Tab PO SCH ×2 (09:31→09:37)
--- NOTE | 2016-09-25 09:59 | CP.PCM.PN ---
<Jaida Schultz - Last Filed: 09/25/16 12:47> Subjective - Date & Time of Evaluation Date of Evaluation: 09/25/16 Time of Evaluation: 08:55 - Subjective Subjective: Medicine Progress Note- Dr Emy Chacon's service Patient seen and examined. POD #2 s/p lap cholecystectomy for gangrenous cholecystitis. Patient's greg drain was removed today by surgeon. Per surgery team the patient is stable for discharge home today. Patient is eager to go home. Denies fever, chills, nausea, vomiting, abdominal pain, shortness of breath, palpitations, and chest pain. Objective - Vital Signs/Intake and Output Vital Signs (last 24 hours): Temp Pulse Resp BP Pulse Ox 98.7 F 80 20 106/69 94 L 09/25/16 08:25 09/25/16 08:25 09/25/16 08:25 09/25/16 08:25 09/25/16 08:25 Intake and Output: 09/25/16 09/25/16 06:59 18:59 Output Total 75 Balance -75 - Medications Medications: Current Medications Acetaminophen (Tylenol 325mg Tab) 650 mg PO Q6 PRN PRN Reason: Fever >100.4 F Acetylcysteine (Acetylcysteine 20%) 4 ml INH RQ6 [facility] Last Admin: 09/25/16 07:42 Dose: 4 ml Albuterol/Ipratropium (Duoneb 3 Mg/0.5 Mg (3 Ml) Ud) 3 ml INH RQ6 [facility] Last Admin: 09/25/16 07:42 Dose: 3 ml Amlodipine Besylate (Norvasc) 5 mg PO DAILY [facility] Last Admin: 09/24/16 10:38 Dose: Not Given Enoxaparin Sodium (Lovenox) 30 mg SC DAILY [facility] Last Admin: 09/25/16 09:31 Dose: 30 mg Fluoxetine HCl (Prozac) 20 mg PO DAILY [facility] Last Admin: 09/25/16 09:36 Dose: Not Given Piperacillin Sod/Tazobactam Sod (Zosyn 3.375 Gm Iv Premix) 3.375 gm in 50 mls @ 100 mls/hr IVPB Q6 [facility] Last Admin: 09/25/16 05:44 Dose: 100 mls/hr Lactated Ringer's (Lactated Ringer's) 1,000 mls @ 50 mls/hr IV .Q20H [facility] Last Admin: 09/24/16 21:45 Dose: 50 mls/hr Levothyroxine Sodium (Synthroid) 75 mcg PO DAILY@0630 [facility] Last Admin: 09/24/16 05:40 Dose: Not Given Ondansetron HCl (Zofran Inj) 4 mg IVP Q6 PRN PRN Reason: Nausea/Vomiting Oxycodone/Acetaminophen (Percocet 5/325 Mg Tab) 1 tab PO Q4H PRN PRN Reason: Pain, Mild (1-3) Stop: 09/28/16 08:09 Pantoprazole Sodium (Protonix Ec Tab) 40 mg PO DAILY [facility] Last Admin: 09/25/16 09:37 Dose: Not Given - Labs Labs: 09/25/16 06:18 09/25/16 06:18 PT 14.8 SECONDS (9.7-12.2) H 09/23/16 07:14 INR 1.3 09/23/16 07:14 APTT 28 SECONDS (21-34) D 09/23/16 07:14 - Constitutional Appears: Non-toxic, No Acute Distress - Head Exam Head Exam: ATRAUMATIC, NORMOCEPHALIC - Eye Exam Eye Exam: EOMI, Normal appearance - ENT Exam ENT Exam: Mucous Membranes Moist - Neck Exam Neck Exam: Normal Inspection - Respiratory Exam Respiratory Exam: Clear to Ausculation Bilateral, NORMAL BREATHING PATTERN. absent: Rhonchi, Wheezes, Respiratory Distress - Cardiovascular Exam Cardiovascular Exam: REGULAR RHYTHM, +S1, +S2 - GI/Abdominal Exam GI & Abdominal Exam: Soft, Normal Bowel Sounds - Extremities Exam Extremities Exam: Full ROM, Normal Inspection - Neurological Exam Neurological Exam: Alert, Awake, CN II-XII Intact, Oriented x3 - Psychiatric Exam Psychiatric exam: Normal Affect, Normal Mood - Skin Skin Exam: Dry, Intact, Normal Color, Warm Assessment and Plan - Assessment and Plan (Free Text) Assessment: 1. Gangrenous Cholecystitis POD #2 s/p lap diana Dr Marcelino patient is stable for DC Greg drain removed f/u within 1 week 2. Lung Mass Patient to follow up with pulm Dr Wade within 1 week to schedule lung mass biopsy Duonebs 3ml INH q6h 3. Hypothyroidism Synthroid 75mcg daily 4. HTN Norvasc 5mg pO daily 5. Prophylactic measures SCDs Lovenox 40mg SC daily Protonix 40mg daily All order per Dr Emy Chacon. Will discuss with patient. <Francisco J Chacon S - Last Filed: 09/25/16 14:11> Objective - Vital Signs/Intake and Output Vital Signs (last 24 hours): Temp Pulse Resp BP Pulse Ox 97.7 F 80 18 106/68 91 L 09/25/16 12:53 09/25/16 12:53 09/25/16 12:53 09/25/16 12:53 09/25/16 12:53 Intake and Output: 09/25/16 09/25/16 06:59 18:59 Output Total 75 Balance -75 - Medications Medications: Current Medications Acetaminophen (Tylenol 325mg Tab) 650 mg PO Q6 PRN PRN Reason: Fever >100.4 F Acetylcysteine (Acetylcysteine 20%) 4 ml INH RQ6 [facility] Last Admin: 09/25/16 07:42 Dose: 4 ml Albuterol/Ipratropium (Duoneb 3 Mg/0.5 Mg (3 Ml) Ud) 3 ml INH RQ6 [facility] Last Admin: 09/25/16 07:42 Dose: 3 ml Amlodipine Besylate (Norvasc) 5 mg PO DAILY [facility] Last Admin: 09/24/16 10:38 Dose: Not Given Enoxaparin Sodium (Lovenox) 30 mg SC DAILY [facility] Last Admin: 09/25/16 09:31 Dose: 30 mg Fluoxetine HCl (Prozac) 20 mg PO DAILY [facility] Last Admin: 09/25/16 09:36 Dose: Not Given Piperacillin Sod/Tazobactam Sod (Zosyn 3.375 Gm Iv Premix) 3.375 gm in 50 mls @ 100 mls/hr IVPB Q6 [facility] Last Admin: 09/25/16 05:44 Dose: 100 mls/hr Lactated Ringer's (Lactated Ringer's) 1,000 mls @ 50 mls/hr IV .Q20H [facility] Last Admin: 09/24/16 21:45 Dose: 50 mls/hr Levothyroxine Sodium (Synthroid) 75 mcg PO DAILY@0630 [facility] Last Admin: 09/24/16 05:40 Dose: Not Given Ondansetron HCl (Zofran Inj) 4 mg IVP Q6 PRN PRN Reason: Nausea/Vomiting Oxycodone/Acetaminophen (Percocet 5/325 Mg Tab) 1 tab PO Q4H PRN PRN Reason: Pain, Mild (1-3) Stop: 09/28/16 08:09 Last Admin: 09/25/16 10:23 Dose: 1 tab Pantoprazole Sodium (Protonix Ec Tab) 40 mg PO DAILY [facility] Last Admin: 09/25/16 09:37 Dose: Not Given - Labs Labs: 09/25/16 06:18 09/25/16 06:18 PT 14.8 SECONDS (9.7-12.2) H 09/23/16 07:14 INR 1.3 09/23/16 07:14 APTT 28 SECONDS (21-34) D 09/23/16 07:14 Attending/Attestation - Attestation I have personally seen and examined this patient.: Yes I have fully participated in the care of the patient.: Yes I have reviewed all pertinent clinical information, including history, physical exam and plan: Yes Notes (Text): 09/25/16 14:10 s/p surg sonia same bs as ordered no new complaints lung wok up as outpt for large lung mass which could be cancer
[2016-09-25] MEDS ORDERED: Enoxaparin 30 mg Syringe SC SCH (10:00)
--- NOTE | 2016-09-25 11:28 | CP.PCM.PN ---
Subjective - Date & Time of Evaluation Date of Evaluation: 09/25/16 Time of Evaluation: 10:40 - Subjective Subjective: clinically same Objective - Vital Signs/Intake and Output Vital Signs (last 24 hours): Temp Pulse Resp BP Pulse Ox 98.7 F 87 20 105/62 93 L 09/25/16 08:25 09/25/16 10:25 09/25/16 08:25 09/25/16 10:25 09/25/16 10:25 Intake and Output: 09/25/16 09/25/16 06:59 18:59 Output Total 75 Balance -75 - Medications Medications: Current Medications Acetaminophen (Tylenol 325mg Tab) 650 mg PO Q6 PRN PRN Reason: Fever >100.4 F Acetylcysteine (Acetylcysteine 20%) 4 ml INH RQ6 [facility] Last Admin: 09/25/16 07:42 Dose: 4 ml Albuterol/Ipratropium (Duoneb 3 Mg/0.5 Mg (3 Ml) Ud) 3 ml INH RQ6 [facility] Last Admin: 09/25/16 07:42 Dose: 3 ml Amlodipine Besylate (Norvasc) 5 mg PO DAILY [facility] Last Admin: 09/24/16 10:38 Dose: Not Given Enoxaparin Sodium (Lovenox) 30 mg SC DAILY [facility] Last Admin: 09/25/16 09:31 Dose: 30 mg Fluoxetine HCl (Prozac) 20 mg PO DAILY [facility] Last Admin: 09/25/16 09:36 Dose: Not Given Piperacillin Sod/Tazobactam Sod (Zosyn 3.375 Gm Iv Premix) 3.375 gm in 50 mls @ 100 mls/hr IVPB Q6 [facility] Last Admin: 09/25/16 05:44 Dose: 100 mls/hr Lactated Ringer's (Lactated Ringer's) 1,000 mls @ 50 mls/hr IV .Q20H [facility] Last Admin: 09/24/16 21:45 Dose: 50 mls/hr Levothyroxine Sodium (Synthroid) 75 mcg PO DAILY@30 [facility] Last Admin: 09/24/16 05:40 Dose: Not Given Ondansetron HCl (Zofran Inj) 4 mg IVP Q6 PRN PRN Reason: Nausea/Vomiting Oxycodone/Acetaminophen (Percocet 5/325 Mg Tab) 1 tab PO Q4H PRN PRN Reason: Pain, Mild (1-3) Stop: 09/28/16 08:09 Last Admin: 09/25/16 10:23 Dose: 1 tab Pantoprazole Sodium (Protonix Ec Tab) 40 mg PO DAILY [facility] Last Admin: 09/25/16 09:37 Dose: Not Given - Labs Labs: 09/25/16 06:18 09/25/16 06:18 PT 14.8 SECONDS (9.7-12.2) H 09/23/16 07:14 INR 1.3 09/23/16 07:14 APTT 28 SECONDS (21-34) D 09/23/16 07:14 - Constitutional Appears: Well - Head Exam Head Exam: ATRAUMATIC, NORMAL INSPECTION, NORMOCEPHALIC - Eye Exam Eye Exam: EOMI, Normal appearance, PERRL Pupil Exam: NORMAL ACCOMODATION, PERRL - ENT Exam ENT Exam: Mucous Membranes Moist, Normal Exam - Neck Exam Neck Exam: Full ROM, Normal Inspection. absent: Lymphadenopathy - Respiratory Exam Respiratory Exam: Decreased Breath Sounds - Cardiovascular Exam Cardiovascular Exam: REGULAR RHYTHM, +S1, +S2 - GI/Abdominal Exam GI & Abdominal Exam: Soft, Diminished Bowel Sounds - Rectal Exam Rectal Exam: Deferred Assessment and Plan (1) Abdominal pain Status: Acute (2) Cholecystitis, acute Status: Acute (3) Lung mass Status: Acute - Assessment and Plan (Free Text) Plan: Gangrenous Cholecystitis POD #2 s/p lap diana Dr Marcelino patient is stable for DC Greg drain removed f/u within 1 week 2. Lung Mass Patient to follow up with pulm Dr Wade within 1 week to schedule lung mass biopsy Duonebs 3ml INH q6h
[2016-09-25 12:54] VITALS: BP 106/68; PULSE 80; RESP 18; TEMP 97.7; O2SAT 91
--- NOTE | 2016-09-25 23:09 | CP.PCM.PN ---
Subjective - Date & Time of Evaluation Date of Evaluation: 09/25/16 Time of Evaluation: 08:05 - Subjective Subjective: Patient seen and evaluated No cardiac complaints Patient has Aortic stenosis Will follow up with me in the office Objective - Vital Signs/Intake and Output Vital Signs (last 24 hours): Temp Pulse Resp BP Pulse Ox 97.7 F 80 18 106/68 91 L 09/25/16 12:53 09/25/16 12:53 09/25/16 12:53 09/25/16 12:53 09/25/16 12:53 Intake and Output: 09/25/16 09/26/16 18:59 06:59 Intake Total 300 Balance 300 - Labs Labs: 09/25/16 06:18 09/25/16 06:18 PT 14.8 SECONDS (9.7-12.2) H 09/23/16 07:14 INR 1.3 09/23/16 07:14 APTT 28 SECONDS (21-34) D 09/23/16 07:14
== END 2016-09-25 14:15 | disposition home or self-care (01) | DRG 419 ==
LOC: C.ER 02:43 → C.9E 06:39 → C.5T 10:24 → C.9I 09-23 20:49 → C.6T 09-24 13:05
PROVIDERS: ADMIT Internal Medicine Nephrology; ATTEND Internal Medicine Nephrology
PROC: BF131ZZ Fluoroscopy of Gallbladder and Bile Ducts using Low Osmolar Contrast (ICD-10-PCS; 2016-09-23)
PROC: 0FT44ZZ Resection of Gallbladder, Percutaneous Endoscopic Approach (ICD-10-PCS; principal; 2016-09-23 12:45)
PROC: 30233N1 Transfusion of Nonautologous Red Blood Cells into Peripheral Vein, Percutaneous Approach (ICD-10-PCS; 2016-09-24)
DX: K80.00 Calculus of gallbladder with acute cholecystitis without obstruction (principal); I95.9 Hypotension, unspecified; J44.9 Chronic obstructive pulmonary disease, unspecified; I35.0 Nonrheumatic aortic (valve) stenosis; D64.9 Anemia, unspecified; K21.9 Gastro-esophageal reflux disease without esophagitis; I10 Essential (primary) hypertension; E03.9 Hypothyroidism, unspecified; R91.8 Other nonspecific abnormal finding of lung field

== ENCOUNTER 2018-02-20 12:51 | Inpatient (IN) | payer MEDICARE ==
[2018-02-20 12:51] VITALS: BMI 28.8
--- NOTE | 2018-02-20 13:24 | C.PDOC ---
History Of Present Illness 72 y/o female, with history of cancer and lung nodules, presents to ED complaining of pain to both legs and muscle spasms since 4 days ago. Patient states she has been having back pain and since the treatment started, she is not able to sit or stand by herself. Patient also has difficulty urinating and has not had no bowel movement since treatment. Denies vomiting, fever, or chest pain. <Danielle Ross - Last Filed: 02/20/18 18:38> History Per: Patient History/Exam Limitations: no limitations Onset/Duration Of Symptoms: Days Current Symptoms Are (Timing): Still Present <Danielle Ross - Last Filed: 02/20/18 18:38> <Kory Ross - Last Filed: 02/21/18 12:25> Time Seen by Provider: 02/20/18 13:22 Chief Complaint (Nursing): Lower Extremity Problem/Injury Past Medical History Reviewed: Historical Data, Nursing Documentation, Vital Signs Vital Signs: Last Vital Signs Temp 98.2 F 02/20/18 13:03 Pulse 90 02/20/18 13:03 Resp 20 02/20/18 13:03 BP 155/77 H 02/20/18 13:03 Pulse Ox 85 L 02/20/18 13:03 - Medical History PMH: Arthritis, Fractures, HTN, Hypothyroidism Denies: Chronic Kidney Disease Surgical History: Denies: Pacemaker - [facility] Procedures FLUOROSCOPY OF GALLBLADDER & BILE DUCT USING L OSM CONTRAST (09/22/16) RESECTION OF GALLBLADDER, PERCUTANEOUS ENDOSCOPIC APPROACH (09/22/16) TRANSFUSE NONAUT RED BLOOD CELLS IN PERIPH VEIN, PERC (09/22/16) Family History: States: No Known Family Hx - Social History Hx Alcohol Use: No Hx Substance Use: No - Immunization History Hx Tetanus Toxoid Vaccination: No Hx Influenza Vaccination: No Hx Pneumococcal Vaccination: No <Danilele Ross - Last Filed: 02/20/18 18:38> Vital Signs: Last Vital Signs Temp 97.8 F 02/21/18 11:52 Pulse 93 H 02/21/18 11:52 Resp 18 02/21/18 11:52 BP 140/68 02/21/18 11:52 Pulse Ox 91 L 02/21/18 11:52 - [facility] Procedures FLUOROSCOPY OF GALLBLADDER & BILE DUCT USING L OSM CONTRAST (06/27/17) RESECTION OF GALLBLADDER, PERCUTANEOUS ENDOSCOPIC APPROACH (09/22/16) TRANSFUSE NONAUT RED BLOOD CELLS IN PERIPH VEIN, PERC (09/22/16) <Kory Ross - Last Filed: 02/21/18 12:25> Review Of Systems Except As Marked, All Systems Reviewed And Found Negative. Constitutional: Negative for: Fever Cardiovascular: Negative for: Chest Pain Genitourinary: Positive for: Other (Difficulty urinating) Musculoskeletal: Positive for: Back Pain, Leg Pain (bilaterally) <CodyDanielle - Last Filed: 02/20/18 18:38> Physical Exam - Physical Exam Appears: Non-toxic, In Acute Distress (mild) Skin: Warm, Dry Head: Atraumatic, Normacephalic Eye(s): bilateral: Normal Inspection Oral Mucosa: Moist Neck: Supple Chest: Symmetrical Cardiovascular: Rhythm Regular, No Murmur Respiratory: Normal Breath Sounds, No Rales, No Rhonchi, No Wheezing Gastrointestinal/Abdominal: Soft, No Tenderness, No Distention Rectal: Normal Exam, Rectal Tone Extremity: No Deformity Extremity: Bilateral: Normal Color And Temperature Neurological/Psych: Oriented x3, Normal Speech, Other (Bilateral flaccid paralysis bilaterally, left greater than right; shows movement on R toes, no spontaneous movement on L leg; patella reflexes equal bilaterally; no paresthesia) <Danielle Ross Last Filed: 02/20/18 18:38> ED Course And Treatment - Laboratory Results Result Diagrams: 02/20/18 14:37 02/20/18 14:37 O2 Sat by Pulse Oximetry: 97 (RA) Pulse Ox Interpretation: Normal - Other Rad Chest X-Ray X-Ray: Read By Radiologist Interpretation: FINDINGS: LUNGS: Rounded left infrahilar/hilar mass increased in size from prior examination. No abnormal right-sided opacity. PLEURA: No pneumothorax or pleural fluid seen. CARDIOVASCULAR: No aortic atherosclerotic calcification present. Normal. OSSEOUS STRUCTURES: No significant abnormalities. VISUALIZED UPPER ABDOMEN: Normal. OTHER FINDINGS: None. IMPRESSION: Enlarging left hilar/infrahilar mass. - CT Scan/US CT Head Other Rad Studies (CT/US): Read By Radiologist, Radiology Report Reviewed CT/US Interpretation: FINDINGS: HEMORRHAGE: No intracranial hemorrhage. BRAIN: No mass effect or edema. Mild diffuse age-appropriate atrophy. Mild periventricular white matter lucency consistent with chronic microvascular ischemic change. No evidence of acute infarct. VENTRICLES: Unremarkable. No hydrocephalus. CALVARIUM: Unremarkable. PARANASAL SINUSES: Unremarkable as visualized. No significant inflammatory changes. MASTOID AIR CELLS: Unremarkable as visualized. No inflammatory changes. OTHER FINDINGS: None. IMPRESSION: Mild atrophy and chronic white matter ischemic change. No intracranial mass, hemorrhage or evidence of acute infarct. THORACIC SPINE Other Rad Studies (CT/US): Read By Radiologist (MET T4 , T11 SEVERE SPINAL STENOSIS PER DR RED) CT/US Interpretation: FINDINGS: VERTEBRAE: There is mild compression deformity of the T4 vertebral body. There is a lytic mass involving the posterior elements and vertebral body with extensive epidural extension resulting in severe spinal stenosis. There is lytic metastasis to the right T3 transverse process and to the right posterior 3rd rib. No other lytic or blastic osseous metastasis is identified. There is mild loss in height of the T11 vertebral body with some heterogeneity of the vertebral body possibly reflecting metastasi s. There is also evidence of what is suspected to be posterior epidural soft tissue extension resulting in mild central canal stenosis at this level. There is lytic metastasis to the posterior aspect of the T12 vertebral body with minimally displaced fracture of the posterior inferior corner of the vertebral body and with some epidural soft tissue noted resulting in mild central canal stenosis. DISCS/SPINAL CANAL/NEURAL FORAMINA: There is no evidence of disc bulge or herniation.. PARASPINAL SOFT TISSUES: Note is made of a previously described left parahilar mass, with left hilar extension.. OTHER FINDINGS: Unremarkable. IMPRESSION: Lytic metastasis to the T4 body and right transverse processes with associated large soft tissue mass resulting in severe central spinal stenosis. Lytic metastasis to the right T3 transverse process and right posterior 3rd rib. Suspected metastasis to the of T11 vertebral body with epidural soft tissue and mild central spinal stenosis. Lytic metastasis involving the posterior aspect of the T12 vertebral body with minimally displaced fracture of the posterior inferior corner and some epidural soft tissue extension and mild central spinal stenosis. Large left parahilar mass as previously described on chest CT examination. CT Lumbar Spine Other Rad Studies (CT/US): Read By Radiologist, Radiology Report Reviewed CT/US Interpretation: FINDINGS: Please see concurrent report of CT thoracic spine performed at the same time for evaluation of the portion of the lower thoracic spine included in this examination. VERTEBRAE: The lumbar vertebral bodies are maintained in height. No lytic or blastic osseous metastasis is noted. Please note that there is lytic metastasis noted to the T11 and T12 vertebrae, with minimally displaced fracture of the posterior inferior corner of the T12 vertebra and posterior epidural soft tissue arising both at the T11 and T12 levels, resulting in mild central canal stenosis. Please see report of thoracic spine CT examination. DISCS/SPINAL CANAL/NEURAL FORAMINA: L1-2: Unremarkable. L2-3: Unremarkable. L3-4: Unremarkable. L4-5: Mild disc bulge. No focal herniation. No spinal or foraminal stenosis. L5-S1: Unremarkable. PARASPINAL SOFT TISSUES: Unremarkable. OTHER FINDINGS: None. IMPRESSION: Lytic metastasis to the T11 and T12 vertebral bodies with epidural soft tissue and fracture of the posterior inferior T12 vertebral body corner. Please see report of thoracic spine. No evidence of lumbar vertebral metastasis or fracture. Mild disc bulge at L4-5. No spinal or foraminal stenosis. <Danielle Ross - Last Filed: 02/20/18 18:38> - Laboratory Results Result Diagrams: 02/20/18 14:37 02/20/18 14:37 <Kory Ross - Last Filed: 02/21/18 12:25> Progress - Re-Evaluation Re-evaluation Note: 02/20/18 14:34 PER RN ESTHETICIAN FACIALIST, NO MRI AVAILABLE TODAY. PENDING CALLBACK DR CHIRINOS 02/20/18 15:06 D/W DR MENCHACA. POSSIBLE RADIATION INDUCED MYOPATHY. RECOMMEND THORACIC AND LUMBAR CT 02/20/18 15:53 D/W DR Emy LEUNG BRICKLAYER [facility] BRICK WILL ADMIT 02/20/18 15:[address] HODGSON SINCE 14302/20/18 16:44 D/W DR MENCHACA AWARE OF CT FINDINGS. DECADRON 10 MG TID 02/20/18 17:08 D/W DR HODGSON C/F DR CHIRINOS AWARE OF ER FINDINGS. - Data Reviewed Data Reviewed: Lab, Diagnostic imaging, EKG, Old records <Danielle Ross - Last Filed: 02/20/18 18:38> Medical Decision Making Medical Decision Making: Plan: --VBG --EKG --CT Head --CT Lumbar Spine --CT Thoracic Spine --Bloodwork --Chest X-Ray --Urinalysis --Morphine <Danielle Ross - Last Filed: 02/20/18 18:38> Disposition Counseled Patient/Family Regarding: Studies Performed, Diagnosis - Disposition Disposition Time: 15:53 - POA Present On Arrival: None <Danielle Ross - Last Filed: 02/20/18 18:38> <Kory Ross - Last Filed: 02/21/18 12:25> - Disposition Disposition: HOSPITALIZED Condition: STABLE - Clinical Impression Clinical Impression: Leg weakness, bilateral, Lung cancer - Scribe Statement The provider has reviewed the documentation as recorded by the Tonio Brownlee Provider Attestation: All medical record entries made by the Qamaribeloisa were at my direction and personally dictated by me. I have reviewed the chart and agree that the record accurately reflects my personal performance of the history, physical exam, medical decision making, and the department course for this patient. I have also personally directed, reviewed, and agree with the discharge instructions and disposition. <Danielle Ross - Last Filed: 02/20/18 18:38> Addendum Addendum: 02/21/18 12:[address] Briones, Neurology- to explain to pt that Dr. Menchaca (her partner) is out of town and she may consult if pt agrees same related to pt, who agrees to have Dr Briones consult. <Kory Ross - Last Filed: 02/21/18 12:25>
[2018-02-20 14:46] LABS: VENOUS BLOOD GAS BASE EXCESS 5.1 mmol/L (0.0-2.0); VENOUS BLOOD GAS PCO2 57 mmHg (40-60); VENOUS BLOOD GAS PO2 26 mm/Hg (30-55); VENOUS BLOOD PH 7.36 (7.32-7.43)
[2018-02-20 14:50] LABS: BASO # 0.1 K/uL (0.0-0.2); BASO % 0.8 % (0.0-2.0); EOS % 0.4 % (0.0-4.0); HEMOGLOBIN 12.8 g/dL (11.0-16.0); LYMPH # 0.6 K/uL (1.0-4.3); LYMPH % 8.7 % (20.0-40.0); MEAN CELL VOLUME 81.8 fL (81.0-99.0); MEAN CORPUSCULAR HEMOGLOBIN 26.1 pg (27.0-31.0); MEAN CORPUSCULAR HGB CONC 31.9 g/dL (33.0-37.0); MEAN PLATELET VOLUME 7.5 fL (7.2-11.7); MONO # 0.5 K/uL (0.0-0.8); MONO % 7.3 % (0.0-10.0); NEUT # 5.9 K/uL (1.8-7.0); NEUT % 82.8 % (50.0-75.0); NRBC % 0.1 % (0.0-2.0); PLATELET COUNT 277 K/uL (130-400); RBC 4.89 Mil/uL (3.80-5.20); RED CELL DISTRIBUTION WIDTH 19.8 % (11.5-14.5); WHITE BLOOD COUNT 7.2 K/uL (4.8-10.8)
[2018-02-20 14:59] LABS: INR 1.1; PROTHROMBIN TIME 12.5 SECONDS (9.7-12.2)
[2018-02-20 15:07] LABS: SQUAMOUS EPITHIAL < 1 /hpf (0-5); URINE BILIRUBIN 2+ (NEGATIVE); URINE BLOOD NEGATIVE (NEGATIVE); URINE CLARITY Clear (Clear); URINE COLOR Yellow (YELLOW); URINE GLUCOSE (UA) NORMAL (Normal); URINE LEUKOCYTE ESTERASE NEG Leu/uL (Negative); URINE PROTEIN 1+ mg/dL (NEGATIVE)
[2018-02-20 15:17] LABS: ALB/GLOB RATIO 1.1 (1.0-2.1); ALBUMIN 4.1 g/dL (3.5-5.0); ALT/SGPT 21 U/L (9-52); AST/SGOT 67 U/L (14-36); BLOOD UREA NITROGEN 26 mg/dL (7-17); GFR NON-AFRICAN AMERICAN > 60
[2018-02-20 15:18] LABS: TOTAL CELLS COUNTED 100
[2018-02-20 15:19] LABS: LYMPHOCYTE 9 % (20-40); MONOCYTE 6 % (0-10); NEUTROPHIL 85 % (50-75); PLATELET ESTIMATE NORMAL (NORMAL)
[2018-02-20 15:20] LABS: ANISOCYTOSIS MODERATE; HYPOCHROMIC SLIGHT; MICROCYTOSIS SLIGHT; POIKILOCYTOSIS SLIGHT
[2018-02-20 15:21] LABS: BURR CELLS SLIGHT; LARGE PLATELETS PRESENT; OVALOCYTES SLIGHT; TEARDROP CELLS SLIGHT
--- NOTE | 2018-02-20 16:22 | CT ---
Date of service: 02/20/2018 PROCEDURE: CT HEAD WITHOUT CONTRAST. HISTORY: LEG WEAKNESS HO CANCER COMPARISON: None available. TECHNIQUE: Axial computed tomography images were obtained through the head/brain without intravenous contrast. Radiation dose: Total exam DLP = 1188.07 mGy-cm. This CT exam was performed using one or more of the following dose reduction techniques: Automated exposure control, adjustment of the mA and/or kV according to patient size, and/or use of iterative reconstruction technique. FINDINGS: HEMORRHAGE: No intracranial hemorrhage. BRAIN: No mass effect or edema. Mild diffuse age-appropriate atrophy. Mild periventricular white matter lucency consistent with chronic microvascular ischemic change. No evidence of acute infarct. VENTRICLES: Unremarkable. No hydrocephalus. CALVARIUM: Unremarkable. PARANASAL SINUSES: Unremarkable as visualized. No significant inflammatory changes. MASTOID AIR CELLS: Unremarkable as visualized. No inflammatory changes. OTHER FINDINGS: None. IMPRESSION: Mild atrophy and chronic white matter ischemic change. No intracranial mass, hemorrhage or evidence of acute infarct.
--- NOTE | 2018-02-20 16:48 | CT ---
Date of service: 02/20/2018 PROCEDURE: CT Thoracic Spine without contrast HISTORY: B/L LEG WEAKNESS HO LUNG CA, RADIATION [place] COMPARISON: CT chest, abdomen and pelvis TECHNIQUE: Axial computed tomography images were obtained of the thoracic spine without intravenous contrast. Coronal and sagittal reformatted images were created and reviewed. Radiation dose: Total exam DLP = 995.99 mGy-cm. This CT exam was performed using one or more of the following dose reduction techniques: Automated exposure control, adjustment of the mA and/or kV according to patient size, and/or use of iterative reconstruction technique. FINDINGS: VERTEBRAE: There is mild compression deformity of the T4 vertebral body. There is a lytic mass involving the posterior elements and vertebral body with extensive epidural extension resulting in severe spinal stenosis. There is lytic metastasis to the right T3 transverse process and to the right posterior 3rd rib. No other lytic or blastic osseous metastasis is identified. There is mild loss in height of the T11 vertebral body with some heterogeneity of the vertebral body possibly reflecting metastasis. There is also evidence of what is suspected to be posterior epidural soft tissue extension resulting in mild central canal stenosis at this level. There is lytic metastasis to the posterior aspect of the T12 vertebral body with minimally displaced fracture of the posterior inferior corner of the vertebral body and with some epidural soft tissue noted resulting in mild central canal stenosis. DISCS/SPINAL CANAL/NEURAL FORAMINA: There is no evidence of disc bulge or herniation.. PARASPINAL SOFT TISSUES: Note is made of a previously described left parahilar mass, with left hilar extension.. OTHER FINDINGS: Unremarkable. IMPRESSION: Lytic metastasis to the T4 body and right transverse processes with associated large soft tissue mass resulting in severe central spinal stenosis. Lytic metastasis to the right T3 transverse process and right posterior 3rd rib. Suspected metastasis to the of T11 vertebral body with epidural soft tissue and mild central spinal stenosis. Lytic metastasis involving the posterior aspect of the T12 vertebral body with minimally displaced fracture of the posterior inferior corner and some epidural soft tissue extension and mild central spinal stenosis. Large left parahilar mass as previously described on chest CT examination. Findings discussed by telephone with Dr. Ross at 4:41 p.m. on 02/20/2018.
--- NOTE | 2018-02-20 16:52 | CT ---
Date of service: 02/20/2018 PROCEDURE: CT Lumbar Spine without contrast HISTORY: B/L LEG WEAKNESS HO LUNG CA, RADIATION [place] COMPARISON: None available. TECHNIQUE: Axial computed tomography images were obtained of the lumbar spine without the use of intravenous contrast. Coronal and sagittal reformatted images were created and reviewed. Radiation dose: Total exam DLP = 1383.57 mGy-cm. This CT exam was performed using one or more of the following dose reduction techniques: Automated exposure control, adjustment of the mA and/or kV according to patient size, and/or use of iterative reconstruction technique. FINDINGS: Please see concurrent report of CT thoracic spine performed at the same time for evaluation of the portion of the lower thoracic spine included in this examination VERTEBRAE: The lumbar vertebral bodies are maintained in height. No lytic or blastic osseous metastasis is noted. Please note that there is lytic metastasis noted to the T11 and T12 vertebrae, with minimally displaced fracture of the posterior inferior corner of the T12 vertebra and posterior epidural soft tissue arising both at the T11 and T12 levels, resulting in mild central canal stenosis. Please see report of thoracic spine CT examination. DISCS/SPINAL CANAL/NEURAL FORAMINA: L1-2: Unremarkable. L2-3: Unremarkable. L3-4: Unremarkable. L4-5: Mild disc bulge. No focal herniation. No spinal or foraminal stenosis. L5-S1: Unremarkable. PARASPINAL SOFT TISSUES: Unremarkable. OTHER FINDINGS: None. IMPRESSION: Lytic metastasis to the T11 and T12 vertebral bodies with epidural soft tissue and fracture of the posterior inferior T12 vertebral body corner. Please see report of thoracic spine. No evidence of lumbar vertebral metastasis or fracture. Mild disc bulge at L4-5. No spinal or foraminal stenosis.
--- NOTE | 2018-02-20 17:04 | RAD ---
Date of service: 02/20/2018 PROCEDURE: CHEST RADIOGRAPH, 1 VIEW HISTORY: WEAKNESS HO LUNG CA COMPARISON: 09/22/2016 FINDINGS: LUNGS: Rounded left infrahilar/hilar mass increased in size from prior examination. No abnormal right-sided opacity. PLEURA: No pneumothorax or pleural fluid seen. CARDIOVASCULAR: No aortic atherosclerotic calcification present. Normal. OSSEOUS STRUCTURES: No significant abnormalities. VISUALIZED UPPER ABDOMEN: Normal. OTHER FINDINGS: None. IMPRESSION: Enlarging left hilar/infrahilar mass.
--- NOTE | 2018-02-20 17:47 | CP.PCM.HP ---
Past Patient History - Past Medical History & Family History Past Medical History?: Yes - Past Social History Smoking Status: Former Smoker - CARDIAC Hx Hypertension: Yes Hx Pacemaker: No - PULMONARY Hx Respiratory Disorders: No Other/Comment: Lung Ca Rt and Lt. - NEUROLOGICAL Hx Neurological Disorder: No - HEENT Hx HEENT Problems: No - RENAL Hx Chronic Kidney Disease: No - ENDOCRINE/METABOLIC Hx Hypothyroidism: Yes - HEMATOLOGICAL/ONCOLOGICAL Hx Blood Disorders: No - INTEGUMENTARY Hx Dermatological Problems: No - MUSCULOSKELETAL/RHEUMATOLOGICAL Hx Arthritis: Yes Hx Fractures: Yes - GASTROINTESTINAL Hx Gastrointestinal Disorders: No - GENITOURINARY/GYNECOLOGICAL Hx Genitourinary Disorders: No - PSYCHIATRIC Hx Substance Use: No - SURGICAL HISTORY Hx Surgeries: Yes - ANESTHESIA Hx Anesthesia: Yes Hx Anesthesia Reactions: No Hx Malignant Hyperthermia: No Meds Allergies/Adverse Reactions: Allergies Allergy/AdvReac Type Severity Reaction Status Date / Time FISH Allergy Severe VOMITING Verified 02/20/18 13:04 iodine Allergy Severe VOMITING Verified 02/20/18 13:04 amlodipine [From Norvasc] AdvReac Intermediate DIZZINESS Verified 02/20/18 13:04 levothyroxine sodium AdvReac Intermediate PAIN Verified 02/20/18 13:04 [From Synthroid] Physical Exam - Constitutional Appears: Well - Head Exam Head Exam: ATRAUMATIC, NORMAL INSPECTION, NORMOCEPHALIC - Eye Exam Eye Exam: EOMI, Normal appearance, PERRL Pupil Exam: NORMAL ACCOMODATION, PERRL - ENT Exam ENT Exam: Mucous Membranes Moist, Normal Exam - Neck Exam Neck exam: Positive for: Normal Inspection - Respiratory Exam Respiratory Exam: Decreased Breath Sounds - Cardiovascular Exam Cardiovascular Exam: REGULAR RHYTHM, +S1, +S2 - GI/Abdominal Exam GI & Abdominal Exam: Diminished Bowel Sounds, Soft - Rectal Exam Rectal Exam: Deferred Results - Vital Signs Recent Vital Signs: Last Vital Signs Temp 98.5 F 02/20/18 15:03 Pulse 89 02/20/18 16:37 Resp 24 02/20/18 16:37 BP 142/81 02/20/18 16:37 Pulse Ox 97 02/20/18 17:09 - Labs Result Diagrams: 02/20/18 14:37 02/20/18 14:37 Labs: Laboratory Results - last 24 hr 02/20/18 02/20/18 02/20/18 14:37 14:37 14:37 WBC 7.2 RBC 4.89 Hgb 12.8 D Hct 40.0 MCV 81.8 MCH 26.1 L MCHC 31.9 L RDW 19.8 H Plt Count 277 D MPV 7.5 Neut % (Auto) 82.8 H Lymph % (Auto) 8.7 L [place] % (Auto) 7.3 Eos % (Auto) 0.4 Baso % (Auto) 0.8 Neut # (Auto) 5.9 Lymph # (Auto) 0.6 L [place] # (Auto) 0.5 Eos # (Auto) 0.0 Baso # (Auto) 0.1 Neutrophils % (Manual) 85 H Lymphocytes % (Manual) 9 L Monocytes % (Manual) 6 Platelet Estimate Normal Large Platelets Present Hypochromasia (manual) Slight Poikilocytosis (manual Slight Anisocytosis (manual) Moderate Microcytosis (manual) Slight Macrocytosis (manual) Slight Tear Drop Cells Slight Ovalocytes Slight [place] Cells Slight PT 12.5 H INR 1.1 APTT 30 pO2 VBG pH VBG pCO2 VBG HCO3 VBG Total CO2 VBG O2 Sat (Calc) VBG Base Excess VBG Potassium Glucose Lactate FiO2 Sodium 138 Potassium 4.0 Chloride 95 L Carbon Dioxide 31 H Anion Gap 16 BUN 26 H Creatinine 0.6 L Est GFR ( Amer) > 60 Est GFR (Non-Af Amer) > 60 Random Glucose 81 Calcium 11.0 H Total Bilirubin 0.9 AST 67 H ALT 21 Alkaline Phosphatase 79 Total Protein 7.9 Albumin 4.1 Globulin 3.8 Albumin/Globulin Ratio 1.1 Venous Blood Potassium Urine Color Urine Clarity Urine pH Ur Specific [place] Urine Protein Urine Glucose (UA) Urine Ketones Urine Blood Urine Nitrate Urine Bilirubin Urine Urobilinogen Ur Leukocyte Esterase Urine WBC (Auto) Urine RBC (Auto) Ur Squamous Epith Cells 02/20/18 02/20/18 14:43 14:56 WBC RBC Hgb Hct MCV MCH MCHC RDW Plt Count MPV Neut % (Auto) Lymph % (Auto) [place] % (Auto) Eos % (Auto) Baso % (Auto) Neut # (Auto) Lymph # (Auto) [place] # (Auto) Eos # (Auto) Baso # (Auto) Neutrophils % (Manual) Lymphocytes % (Manual) Monocytes % (Manual) Platelet Estimate Large Platelets Hypochromasia (manual) Poikilocytosis (manual Anisocytosis (manual) Microcytosis (manual) Macrocytosis (manual) Tear Drop Cells Ovalocytes [place] Cells PT INR APTT pO2 26 L VBG pH 7.36 VBG pCO2 57 VBG HCO3 27.5 VBG Total CO2 33.9 H VBG O2 Sat (Calc) 44.7 VBG Base Excess 5.1 H VBG Potassium 3.8 Glucose 75 Lactate 1.8 FiO2 21.0 Sodium 139.0 Potassium Chloride 101.0 Carbon Dioxide Anion Gap BUN Creatinine Est GFR ( Amer) Est GFR (Non-Af Amer) Random Glucose Calcium Total Bilirubin AST ALT Alkaline Phosphatase Total Protein Albumin Globulin Albumin/Globulin Ratio Venous Blood Potassium 3.8 Urine Color Yellow Urine Clarity Clear Urine pH 5.0 Ur Specific [place] 1.020 Urine Protein 1+ H Urine Glucose (UA) Normal Urine Ketones Trace Urine Blood Negative Urine Nitrate Negative Urine Bilirubin 2+ H Urine Urobilinogen 4.0 H Ur Leukocyte Esterase Neg Urine WBC (Auto) 3 Urine RBC (Auto) 2 Ur Squamous Epith Cells < 1
--- NOTE | 2018-02-20 18:06 | CP.PCM.CON ---
History of Present Illness - History of Present Illness History of Present Illness: Neurology Consultation Note: Mrs. Wright is a 72-year-old woman, who was referred to me by Dr. 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 She has been complaining of back pain for the past week. On Wednesday, the day before , she developed difficulty with ambulation and started requiring the use of a walker. By , she was unable to ambulate, but did not come to the hospital due to concern that it was a holiday. She presents to the ED today unable to lift her legs off the bed with very little movement only on the right side. She also complains of abdominal spasms that have been ongoing since . On exam, she had a sensory level at T11. Non-contrast CT of the thoracic and lumbar spine confirmed metastatic lesions at T4 and T11. Review of Systems - Constitutional Constitutional: As Per HPI - EENT Eyes: absent: As Per HPI, Blind Spots, Blurred Vision, Change in Vision, Decreased Night Vision, Diplopia, Discharge, Dry Eye, Exophthalmos, Floaters, Irritation, Itchy Eyes, Loss of Peripheral Vision, Pain, Photophobia, Requires Corrective Lenses, Sees Flashes, Spots in Vision, Tunnel Vision, Other Visual Disturbances, Loss of Vision, Other Ears: absent: As Per HPI, Decreased Hearing, Ear Discharge, Ear Pain, Tinnitus, Abnormal Hearing, Disequilibrium, Dizziness, Other Nose/Mouth/Throat: absent: As Per HPI, Epistaxis, Nasal Congestion, Nasal Discharge, Nasal Obstruction, Nasal Trauma, Nose Pain, Post Nasal Drip, Sinus Pain, Sinus Pressure, Bleeding Gums, Change in Voice, Dental Pain, Dry Mouth, Dysphagia, Halitosis, Hoarsness, Lip Swelling, Mouth Lesions, Mouth Pain, Odynophagia, Sore Throat, Throat Swelling, Tongue Swelling, Facial Pain, Neck Pain, Neck Mass, Other - Breasts Breasts: absent: As Per HPI, Change in Shape, Mass, Pain, Nipple Discharge, Nipple Inversion, Skin Changes, Swelling, Other - Cardiovascular Cardiovascular: absent: As Per HPI, Acrocyanosis, Chest Pain, Chest Pain at Rest, Chest Pain with Activity, Claudication, Diaphoresis, Dyspnea, Dyspnea on Exertion, Edema, Irregular Heart Rhythm, Pain Radiating to Arm/Neck/Jaw, Leg Edema, Leg Ulcers, Lightheadedness, Orthopnea, Palpitations, Paroxysmal Nocturnal Dyspnea, Pedal Edema, Radiating Pain, Rapid Heart Rate, Slow Heart Rate, Syncope, Other - Respiratory Respiratory: As Per HPI - Gastrointestinal Gastrointestinal: absent: As Per HPI, Abdominal Pain, Belching, Bloating, Change in Bowel Habits, Change in Stool Character, Coffee Ground Emesis, Constipation, Cramping, Diarrhea, Dyspepsia, Dysphagia, Early Satiety, Excessive Flatus, Fecal Incontinence, Heartburn, Hematemesis, Hematochezia, Loose Stools, Melena, Nausea, Odynophagia, Temesmus, Vomiting, Other - Genitourinary Genitourinary: absent: As Per HPI, Change in Urinary Stream, Difficulty Urinating, Dysuria, Flank Pain, Hematuria, Pyuria, Nocturia, Urinary Incontinence, Urinary Frequency, Urinary Hesitance, Urinary Urgency, Voiding Freq/Small Amts, Freq UTI, Hx Renal/Bladder Calculi, Hx /Renal Surgery, Bladder Distension, Other - Musculoskeletal Musculoskeletal: As Per HPI - Integumentary Integumentary: absent: As Per HPI, Acne, Alopecia, Bleeding Lesions, Change in Hair, Change in Nails, Change in Pigmentation, Changing Lesions, Dry Skin, Erythema, Furuncle, Hirsutism, Lesions, New Lesions, Non-Healing Lesions, Photosensitivity, Pruritus, Rash, Skin Pain, Skin Ulcer, Sores, Striae, Swelling, Unusual Bruising, Wounds, Jaundice, Other - Neurological Neurological: As Per HPI - Psychiatric Psychiatric: absent: As Per HPI, Abnormal Sleep Pattern, Anhedonia, Anxiety, Auditory Hallucinations, Behavioral Changes, Change in Appetite, Change in Libido, Confusion, Depression, Difficulty Concentrating, Hallucinations, Chris icidal Ideation, Hopelessness, Irritability, Memory Loss, Mood Swings, Panic Attacks, Paranoia, Suicidal Ideation, Visual Hallucinations, Tactile Hallucinations, Other - Endocrine Endocrine: absent: As Per HPI, Change in Body Appearance, Change in Libido, Cold Intolorance, Deepening of Voice, Excessive Sweating, Fatigue, Flushing, Heat Intolorance, Increase in Ring/Shoe/Hat Size, Palpitations, Polydipsia, Polyphagia, Polyuria, Other - Hematologic/Lymphatic Hematologic: absent: As Per HPI, Easy Bleeding, Easy Bruising, Lymphadenopathy, Other Past Patient History - Past Medical History & Family History Past Medical History?: Yes - Past Social History Smoking Status: Former Smoker - CARDIAC Hx Hypertension: Yes Hx Pacemaker: No - PULMONARY Hx Respiratory Disorders: No Other/Comment: Lung Ca Rt and Lt. - NEUROLOGICAL Hx Neurological Disorder: No - HEENT Hx HEENT Problems: No - RENAL Hx Chronic Kidney Disease: No - ENDOCRINE/METABOLIC Hx Hypothyroidism: Yes - HEMATOLOGICAL/ONCOLOGICAL Hx Blood Disorders: No - INTEGUMENTARY Hx Dermatological Problems: No - MUSCULOSKELETAL/RHEUMATOLOGICAL Hx Arthritis: Yes Hx Fractures: Yes - GASTROINTESTINAL Hx Gastrointestinal Disorders: No - GENITOURINARY/GYNECOLOGICAL Hx Genitourinary Disorders: No - PSYCHIATRIC Hx Substance Use: No - SURGICAL HISTORY Hx Surgeries: Yes - ANESTHESIA Hx Anesthesia: Yes Hx Anesthesia Reactions: No Hx Malignant Hyperthermia: No Meds Allergies/Adverse Reactions: Allergies Allergy/AdvReac Type Severity Reaction Status Date / Time FISH Allergy Severe VOMITING Verified 02/20/18 13:04 iodine Allergy Severe VOMITING Verified 02/20/18 13:04 amlodipine [From Norvasc] AdvReac Intermediate DIZZINESS Verified 02/20/18 13:04 levothyroxine sodium AdvReac Intermediate PAIN Verified 02/20/18 13:04 [From Synthroid] Physical Exam - Constitutional Appears: Well - Head Exam Head Exam: ATRAUMATIC, NORMAL INSPECTION, NORMOCEPHALIC - Eye Exam Eye Exam: EOMI, Normal appearance, PERRL Pupil Exam: NORMAL ACCOMODATION, PERRL - ENT Exam ENT Exam: Mucous Membranes Moist, Normal Exam - Neck Exam Neck exam: Positive for: Normal Inspection - Respiratory Exam Respiratory Exam: Clear to Auscultation Bilateral, NORMAL BREATHING PATTERN - Cardiovascular Exam Cardiovascular Exam: REGULAR RHYTHM, +S1, +S2 - GI/Abdominal Exam GI & Abdominal Exam: Normal Bowel Sounds, Soft. absent: Tenderness - Rectal Exam Rectal Exam: Deferred - Extremities Exam Extremities exam: Positive for: normal inspection - Back Exam Back exam: NORMAL INSPECTION - Neurological Exam Neurological exam: Alert, CN II-XII Intact, Oriented x3 Additional comments: Bilateral lower extremity weakness with 1/5 strength on the right and 0/5 strength on the left proximally and distally. Reflexes are brisk bilaterally. Sensory level at T11 noted. No respiratory muscle weakness. Rectal tone is normal. No urinary incontinence. Gait could not be tested. - Psychiatric Exam Psychiatric exam: Normal Affect, Normal Mood - Skin Skin Exam: Dry, Intact, Normal Color, Warm Results - Vital Signs Recent Vital Signs: Last Vital Signs Temp 98.5 F 02/20/18 15:03 Pulse 89 02/20/18 16:37 Resp 24 02/20/18 16:37 BP 142/81 02/20/18 16:37 Pulse Ox 97 02/20/18 17:09 - Labs Result Diagrams: 02/20/18 14:37 02/20/18 14:37 Labs: Laboratory Results - last 24 hr 02/20/18 02/20/18 02/20/18 14:37 14:37 14:37 WBC 7.2 RBC 4.89 Hgb 12.8 D Hct 40.0 MCV 81.8 MCH 26.1 L MCHC 31.9 L RDW 19.8 H Plt Count 277 D MPV 7.5 Neut % (Auto) 82.8 H Lymph % (Auto) 8.7 L [place] % (Auto) 7.3 Eos % (Auto) 0.4 Baso % (Auto) 0.8 Neut # (Auto) 5.9 Lymph # (Auto) 0.6 L [place] # (Auto) 0.5 Eos # (Auto) 0.0 Baso # (Auto) 0.1 Neutrophils % (Manual) 85 H Lymphocytes % (Manual) 9 L Monocytes % (Manual) 6 Platelet Estimate Normal Large Platelets Present Hypochromasia (manual) Slight Poikilocytosis (manual Slight Anisocytosis (manual) Moderate Microcytosis (manual) Slight Macrocytosis (manual) Slight Tear Drop Cells Slight Ovalocytes Slight [place] Cells Slight PT 12.5 H INR 1.1 APTT 30 pO2 VBG pH VBG pCO2 VBG HCO3 VBG Total CO2 VBG O2 Sat (Calc) VBG Base Excess VBG Potassium Glucose Lactate FiO2 Sodium 138 Potassium 4.0 Chloride 95 L Carbon Dioxide 31 H Anion Gap 16 BUN 26 H Creatinine 0.6 L Est GFR ( Amer) > 60 Est GFR (Non-Af Amer) > 60 Random Glucose 81 Calcium 11.0 H Total Bilirubin 0.9 AST 67 H ALT 21 Alkaline Phosphatase 79 Total Protein 7.9 Albumin 4.1 Globulin 3.8 Albumin/Globulin Ratio 1.1 Venous Blood Potassium Urine Color Urine Clarity Urine pH Ur Specific [place] Urine Protein Urine Glucose (UA) Urine Ketones Urine Blood Urine Nitrate Urine Bilirubin Urine Urobilinogen Ur Leukocyte Esterase Urine WBC (Auto) Urine RBC (Auto) Ur Squamous Epith Cells 02/20/18 02/20/18 14:43 14:56 WBC RBC Hgb Hct MCV MCH MCHC RDW Plt Count MPV Neut % (Auto) Lymph % (Auto) [place] % (Auto) Eos % (Auto) Baso % (Auto) Neut # (Auto) Lymph # (Auto) [place] # (Auto) Eos # (Auto) Baso # (Auto) Neutrophils % (Manual) Lymphocytes % (Manual) Monocytes % (Manual) Platelet Estimate Large Platelets Hypochromasia (manual) Poikilocytosis (manual Anisocytosis (manual) Microcytosis (manual) Macrocytosis (manual) Tear Drop Cells Ovalocytes [place] Cells PT INR APTT pO2 26 L VBG pH 7.36 VBG pCO2 57 VBG HCO3 27.5 VBG Total CO2 33.9 H VBG O2 Sat (Calc) 44.7 VBG Base Excess 5.1 H VBG Potassium 3.8 Glucose 75 Lactate 1.8 FiO2 21.0 Sodium 139.0 Potassium Chloride 101.0 Carbon Dioxide Anion Gap BUN Creatinine Est GFR ( Amer) Est GFR (Non-Af Amer) Random Glucose Calcium Total Bilirubin AST ALT Alkaline Phosphatase Total Protein Albumin Globulin Albumin/Globulin Ratio Venous Blood Potassium 3.8 Urine Color Yellow Urine Clarity Clear Urine pH 5.0 Ur Specific [place] 1.020 Urine Protein 1+ H Urine Glucose (UA) Normal Urine Ketones Trace Urine Blood Negative Urine Nitrate Negative Urine Bilirubin 2+ H Urine Urobilinogen 4.0 H Ur Leukocyte Esterase Neg Urine WBC (Auto) 3 Urine RBC (Auto) 2 Ur Squamous Epith Cells < 1 Assessment & Plan (1) Leg weakness, bilateral Assessment and Plan: 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 I will start the patient on decadron 10 mg Q8 and obtain MRI of the total spine and brain with and without contrast. I recommend neurosurgical consultation as well for further evaluation. Thank you for this consultation. Status: Acute
[2018-02-20] MEDS ORDERED: Albuterol-Ipratrop 3 mg / 0.5 (3 ml) UD INH PRN (21:03)
[2018-02-20] MEDS ORDERED: Vancomycin 1 GM 1 GM/250 ML BAG IVPB ONE (21:07)
[2018-02-21] MEDS ORDERED: Dexamethasone 10 MG in Sodium Chloride 0.9% 50 ML IV SCH
--- NOTE | 2018-02-21 07:08 | CP.PCM.CON ---
History of Present Illness - History of Present Illness History of Present Illness: PATIENT WISHES TO BE FOLLOWED BY DR MENCHACA . Past Patient History - Past Medical History & Family History Past Medical History?: Yes - Past Social History Smoking Status: Former Smoker - CARDIAC Hx Hypertension: Yes Hx Pacemaker: No - PULMONARY Hx Respiratory Disorders: No Other/Comment: Lung Ca Rt and Lt. - NEUROLOGICAL Hx Neurological Disorder: No - HEENT Hx HEENT Problems: No - RENAL Hx Chronic Kidney Disease: No - ENDOCRINE/METABOLIC Hx Hypothyroidism: Yes - HEMATOLOGICAL/ONCOLOGICAL Hx Blood Disorders: No - INTEGUMENTARY Hx Dermatological Problems: No - MUSCULOSKELETAL/RHEUMATOLOGICAL Hx Arthritis: Yes Hx Fractures: Yes - GASTROINTESTINAL Hx Gastrointestinal Disorders: No - GENITOURINARY/GYNECOLOGICAL Hx Genitourinary Disorders: No - PSYCHIATRIC Hx Substance Use: No - SURGICAL HISTORY Hx Surgeries: Yes - ANESTHESIA Hx Anesthesia: Yes Hx Anesthesia Reactions: No Hx Malignant Hyperthermia: No Meds Allergies/Adverse Reactions: Allergies Allergy/AdvReac Type Severity Reaction Status Date / Time FISH Allergy Severe VOMITING Verified 02/20/18 13:04 iodine Allergy Severe VOMITING Verified 02/20/18 13:04 - Medications Medications: Current Medications Albuterol/Ipratropium (Duoneb 3 Mg/0.5 Mg (3 Ml) Ud) 3 ml INH RQ6 PRN PRN Reason: Wheezing Amlodipine Besylate (Norvasc) 5 mg PO QPM [facility] Aspirin (Ecotrin) 81 mg PO DAILY [facility] Dexamethasone (Decadron Inj) 10 mg IV Q6 [facility] Last Admin: 02/21/18 06:52 Dose: 10 mg Docusate Sodium (Colace) 100 mg PO BID [facility] Enoxaparin Sodium (Lovenox) 40 mg SC DAILY [facility] Fluoxetine HCl (Prozac) 10 mg PO QPM [facility] Home Med (Cholecalciferol [Vitamin D 1000 Iu]) 1,000 iu PO DAILY [facility] Ceftriaxone Sodium 1 gm/ (Sodium Chloride) 100 mls @ 100 mls/hr IVPB ONCE ONE; Protocol Stop: 02/21/18 10:59 Levothyroxine Sodium (Synthroid) 75 mcg PO QPM [facility] Pantoprazole Sodium (Protonix Ec Tab) 40 mg PO DAILY [facility] Results - Vital Signs Recent Vital Signs: Last Vital Signs Temp 98 F 02/21/18 06:50 Pulse 84 02/21/18 06:50 Resp 20 02/21/18 06:50 BP 140/82 11/26/18 06:50 Pulse Ox 94 L 02/21/18 06:50 - Labs Result Diagrams: 02/20/18 14:37 02/20/18 14:37 Labs: Laboratory Results - last 24 hr 02/20/18 02/20/18 02/20/18 14:37 14:37 14:37 WBC 7.2 RBC 4.89 Hgb 12.8 D Hct 40.0 MCV 81.8 MCH 26.1 L MCHC 31.9 L RDW 19.8 H Plt Count 277 D MPV 7.5 Neut % (Auto) 82.8 H Lymph % (Auto) 8.7 L [place] % (Auto) 7.3 Eos % (Auto) 0.4 Baso % (Auto) 0.8 Neut # (Auto) 5.9 Lymph # (Auto) 0.6 L [place] # (Auto) 0.5 Eos # (Auto) 0.0 Baso # (Auto) 0.1 Neutrophils % (Manual) 85 H Lymphocytes % (Manual) 9 L Monocytes % (Manual) 6 Platelet Estimate Normal Large Platelets Present Hypochromasia (manual) Slight Poikilocytosis (manual Slight Anisocytosis (manual) Moderate Microcytosis (manual) Slight Macrocytosis (manual) Slight Tear Drop Cells Slight Ovalocytes Slight [place] Cells Slight PT 12.5 H INR 1.1 APTT 30 pO2 VBG pH VBG pCO2 VBG HCO3 VBG Total CO2 VBG O2 Sat (Calc) VBG Base Excess VBG Potassium Glucose Lactate FiO2 Sodium 138 Potassium 4.0 Chloride 95 L Carbon Dioxide 31 H Anion Gap 16 BUN 26 H Creatinine 0.6 L Est GFR ( Amer) > 60 Est GFR (Non-Af Amer) > 60 Random Glucose 81 Calcium 11.0 H Total Bilirubin 0.9 AST 67 H ALT 21 Alkaline Phosphatase 79 Total Protein 7.9 Albumin 4.1 Globulin 3.8 Albumin/Globulin Ratio 1.1 Venous Blood Potassium Urine Color Urine Clarity Urine pH Ur Specific [place] Urine Protein Urine Glucose (UA) Urine Ketones Urine Blood Urine Nitrate Urine Bilirubin Urine Urobilinogen Ur Leukocyte Esterase Urine WBC (Auto) Urine RBC (Auto) Ur Squamous Epith Cells 02/20/18 02/20/18 14:43 14:56 WBC RBC Hgb Hct MCV MCH MCHC RDW Plt Count MPV Neut % (Auto) Lymph % (Auto) [place] % (Auto) Eos % (Auto) Baso % (Auto) Neut # (Auto) Lymph # (Auto) [place] # (Auto) Eos # (Auto) Baso # (Auto) Neutrophils % (Manual) Lymphocytes % (Manual) Monocytes % (Manual) Platelet Estimate Large Platelets Hypochromasia (manual) Poikilocytosis (manual Anisocytosis (manual) Microcytosis (manual) Macrocytosis (manual) Tear Drop Cells Ovalocytes [place] Cells PT INR APTT pO2 26 L VBG pH 7.36 VBG pCO2 57 VBG HCO3 27.5 VBG Total CO2 33.9 H VBG O2 Sat (Calc) 44.7 VBG Base Excess 5.1 H VBG Potassium 3.8 Glucose 75 Lactate 1.8 FiO2 21.0 Sodium 139.0 Potassium Chloride 101.0 Carbon Dioxide Anion Gap BUN Creatinine Est GFR ( Amer) Est GFR (Non-Af Amer) Random Glucose Calcium Total Bilirubin AST ALT Alkaline Phosphatase Total Protein Albumin Globulin Albumin/Globulin Ratio Venous Blood Potassium 3.8 Urine Color Yellow Urine Clarity Clear Urine pH 5.0 Ur Specific [place] 1.020 Urine Protein 1+ H Urine Glucose (UA) Normal Urine Ketones Trace Urine Blood Negative Urine Nitrate Negative Urine Bilirubin 2+ H Urine Urobilinogen 4.0 H Ur Leukocyte Esterase Neg Urine WBC (Auto) 3 Urine RBC (Auto) 2 Ur Squamous Epith Cells < 1
[2018-02-21 07:52] LABS: FREE T4 1.89 ng/dL (0.78-2.19)
[2018-02-21] MEDS ORDERED: Home Med 1 UNIT (Cholecalciferol [Vitamin D 1000 Iu] 1,000 IU) PO SCH (10:00)
[2018-02-21] MEDS ORDERED: cefTRIAXone 1 gm 1 GM/100 ML BAG IVPB ONE (11:32)
[2018-02-21] MEDS: Enoxaparin 40 mg Syringe SC SCH (12:16)
[2018-02-21] MEDS: Pantoprazole 40 mg EC Tab PO SCH (12:17)
--- NOTE | 2018-02-21 12:54 | MRI ---
Date of service: 02/21/2018 PROCEDURE: MR LUMBAR SPINE WITHOUT CONTRAST HISTORY: LEG WEAKNESS RO CAUDA EQUINA COMPARISON: None available. TECHNIQUE: Multiecho multiplanar sequences were performed through the lumbar spine without the use of intravenous contrast. FINDINGS: Redemonstrated are multiple metastatic lesions scattered throughout the thoracic lumbar and sacral spine. There is a acute compression fracture of the T11 segment with lobulated with retropulsion of the posterior cortex that results in irregular compressive effects on the ventral surface of the thecal and minimal flattening of the left anterolateral border of the thoracic spinal cord. There is also bowing and/or early retropulsion of the posterior T12 cortex which also results in irregular compressive effects on the ventral surface of the thecal sac though does not cause any significant compression of the conus at this level. No other compression fractures are identified. No evidence of epidural tumor extension. Varying degrees of mild age related disc desiccation however disc space heights maintained. There are no disc herniations nor significant disc bulges. Mild facet arthropathy L5-S1 through the L 2 L3 levels in decreasing order of severity. The overall central bony canal and exit foramina adequate. Other Findings None. IMPRESSION: Multiple metastatic lesions scattered throughout the lower thoracic and lumbar as well as sacral spine.. There is a mild acute anterior wedge compression fracture of the T11 segment with retropulsion of the posterior cortex of results in irregular compression of the ventral surface of the thecal sac and minimal flattening of the left anterolateral border of the lower thoracic spinal cord. Minimal bowing and/or early retropulsion of the posterior T11 cortex which also results in slight irregular compressive effects on the ventral surface of the thecal sac though does not cause significant compression of the conus. No other compression deformities are seen. See above discussion for additional details. These findings discussed with emergency room KAREN Springer at approximately 12:45 p.m. with written down and read back verification.
--- NOTE | 2018-02-21 16:06 | CP.PCM.PN ---
<Matti Sifuentes - Last Filed: 02/21/18 15:56> Subjective - Date & Time of Evaluation Date of Evaluation: 02/21/18 Time of Evaluation: 13:00 - Subjective Subjective: PGY2 Neuro Note for Dr. Brink Patient seen and examined this afternoon at bedside. Patient is well aware of her disease stating that her and Dr. Beltrán always knew that her disease was going to progress at some point. She does not want anything done without someone talking to Dr. Beltrán beforehand. She has no other complaints at time. Objective - Vital Signs/Intake and Output Vital Signs (last 24 hours): Temp Pulse Resp BP Pulse Ox 98 F 90 18 139/85 92 L 02/21/18 15:36 02/21/18 15:36 02/21/18 15:36 02/21/18 15:36 02/21/18 15:36 Intake and Output: 02/21/18 02/21/18 06:59 18:59 Intake Total 400 Output Total 360 Balance 40 - Medications Medications: Current Medications Albuterol/Ipratropium (Duoneb 3 Mg/0.5 Mg (3 Ml) Ud) 3 ml INH RQ6 PRN PRN Reason: Wheezing Amlodipine Besylate (Norvasc) 5 mg PO QPM [facility] Aspirin (Ecotrin) 81 mg PO DAILY [facility] Last Admin: 02/21/18 12:16 Dose: 81 mg Dexamethasone (Decadron Inj) 10 mg IV Q6 [facility] Last Admin: 02/21/18 12:18 Dose: 10 mg Docusate Sodium (Colace) 100 mg PO BID [facility] Last Admin: 02/21/18 12:16 Dose: 100 mg Enoxaparin Sodium (Lovenox) 40 mg SC DAILY [facility] Last Admin: 02/21/18 12:16 Dose: 40 mg Fluoxetine HCl (Prozac) 10 mg PO QPM [facility] Home Med (Cholecalciferol [Vitamin D 1000 Iu]) 1,000 iu PO DAILY [facility] Last Admin: 02/21/18 12:26 Dose: Not Given Hydromorphone HCl (Dilaudid) 1 mg IVP Q12H PRN PRN Reason: Pain, severe (8-10) Levothyroxine Sodium (Synthroid) 75 mcg PO QPM [facility] Ondansetron HCl (Zofran Inj) 4 mg IVP Q6H [facility] Pantoprazole Sodium (Protonix Ec Tab) 40 mg PO DAILY [facility] Last Admin: 02/21/18 12:17 Dose: Not Given - Labs Labs: 02/20/18 14:37 02/20/18 14:37 PT 12.5 SECONDS (9.7-12.2) H 02/20/18 14:37 INR 1.1 02/20/18 14:37 APTT 30 SECONDS (21-34) 02/20/18 14:37 - Constitutional Appears: Non-toxic, Chronically Ill - Head Exam Head Exam: ATRAUMATIC, NORMOCEPHALIC - Eye Exam Eye Exam: Normal appearance - ENT Exam ENT Exam: Mucous Membranes Moist - Respiratory Exam Respiratory Exam: NORMAL BREATHING PATTERN. 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 There is a mild acute anterior wedge compression fracture of the T11 segment with retropulsion of the posterior cortex of results in irregular compression of the ventral surface of the thecal sac and minimal flattening of the left anterolateral border of the lower thoracic spinal cord. * Minimal bowing and/or early retropulsion of the posterior T11 cortex which also results in slight irregular compressive effects on the ventral surface of the thecal sac though does not cause significant compression of the conus. * No other compression deformities are seen. See above discussion for additional details. Patient is well aware of her disease. She does not want anything done for her without Dr. Beltrán's approval. We are recommending to start patient on decadron 10mg q8h and dilaudid 1mg q12h. She will need further hem/onc evaluation neuros urgical consultation for possible decompression of spinal cord. Please re- consult if needed and do not hesitate to call with any questions. Case discussed with Dr. Anselmo Chino Maria PGY2 <Calvin Brink - Last Filed: 02/21/18 16:42> Objective - Vital Signs/Intake and Output Vital Signs (last 24 hours): Temp Pulse Resp BP Pulse Ox 98 F 90 18 139/85 92 L 02/21/18 15:36 02/21/18 15:36 02/21/18 15:36 02/21/18 15:36 02/21/18 15:36 Intake and Output: 02/21/18 02/21/18 06:59 18:59 Intake Total 400 Output Total 360 Balance 40 - Medications Medications: Current Medications Albuterol/Ipratropium (Duoneb 3 Mg/0.5 Mg (3 Ml) Ud) 3 ml INH RQ6 PRN PRN Reason: Wheezing Amlodipine Besylate (Norvasc) 5 mg PO QPM [facility] Aspirin (Ecotrin) 81 mg PO DAILY [facility] Last Admin: 02/21/18 12:16 Dose: 81 mg Dexamethasone (Decadron Inj) 10 mg IV Q6 [facility] Last Admin: 02/21/18 12:18 Dose: 10 mg Docusate Sodium (Colace) 100 mg PO BID [facility] Last Admin: 02/21/18 12:16 Dose: 100 mg Enoxaparin Sodium (Lovenox) 40 mg SC DAILY [facility] Last Admin: 02/21/18 12:16 Dose: 40 mg Fluoxetine HCl (Prozac) 10 mg PO QPM [facility] Home Med (Cholecalciferol [Vitamin D 1000 Iu]) 1,000 iu PO DAILY [facility] Last Admin: 02/21/18 12:26 Dose: Not Given Hydromorphone HCl (Dilaudid) 1 mg IVP Q12H PRN PRN Reason: Pain, severe (8-10) Levothyroxine Sodium (Synthroid) 75 mcg PO QPM [facility] Ondansetron HCl (Zofran Inj) 4 mg IVP Q6H [facility] Pantoprazole Sodium (Protonix Ec Tab) 40 mg PO DAILY [facility] Last Admin: 02/21/18 12:17 Dose: Not Given - Labs Labs: 02/20/18 14:37 02/20/18 14:37 PT 12.5 SECONDS (9.7-12.2) H 02/20/18 14:37 INR 1.1 02/20/18 14:37 APTT 30 SECONDS (21-34) 02/20/18 14:37 Assessment and Plan - Assessment and Plan (Free Text) Assessment: I examined the patient with DR. Sifuentes and agree with his assessment and plan. Patient has metastatic disease with multiple areas of compression fractures, and is now admitted for management of metastases. Neurosurgery evaluation. Decadron Pain management. Thankyou Dr. brink Neurology
[2018-02-21] MEDS ORDERED: Levothyroxine 75 MCG TAB PO SCH (18:00)
[2018-02-21 19:37] VITALS: RESP 20
[2018-02-21] MEDS: HYDROmorphone 1 mg/ml ISec IVP PRN (23:03)
--- NOTE | 2018-02-21 23:47 | CP.PCM.PN ---
Subjective - Date & Time of Evaluation Date of Evaluation: 02/21/18 Time of Evaluation: 07:50 - Subjective Subjective: clinically same Objective - Vital Signs/Intake and Output Vital Signs (last 24 hours): Temp Pulse Resp BP Pulse Ox 98.3 F 95 H 20 138/82 92 L 02/21/18 18:58 02/21/18 18:58 02/21/18 18:58 02/21/18 18:58 02/21/18 15:36 Intake and Output: 02/21/18 02/22/18 18:59 06:59 Output Total 750 Balance -750 - Medications Medications: Current Medications Albuterol/Ipratropium (Duoneb 3 Mg/0.5 Mg (3 Ml) Ud) 3 ml INH RQ6 PRN PRN Reason: Wheezing Amlodipine Besylate (Norvasc) 5 mg PO QPM [facility] Last Admin: 02/21/18 19:19 Dose: Not Given Aspirin (Ecotrin) 81 mg PO DAILY [facility] Last Admin: 02/21/18 12:16 Dose: 81 mg Dexamethasone (Decadron Inj) 10 mg IV Q6 [facility] Last Admin: 02/21/18 19:15 Dose: 10 mg Docusate Sodium (Colace) 100 mg PO BID [facility] Last Admin: 02/21/18 19:19 Dose: Not Given Enoxaparin Sodium (Lovenox) 40 mg SC DAILY [facility] Last Admin: 02/21/18 12:16 Dose: 40 mg Ergocalciferol (Drisdol 50,000 Intl Units Cap) 1 cap PO QWK [facility] Fluoxetine HCl (Prozac) 10 mg PO QPM [facility] Last Admin: 02/21/18 19:20 Dose: Not Given Hydromorphone HCl (Dilaudid) 1 mg IVP Q12H PRN PRN Reason: Pain, severe (8-10) Last Admin: 02/21/18 23:03 Dose: 1 mg Levothyroxine Sodium (Synthroid) 75 mcg PO QPM [facility] Last Admin: 02/21/18 19:21 Dose: Not Given Ondansetron HCl (Zofran Inj) 4 mg IVP Q6H [facility] Last Admin: 02/21/18 20:52 Dose: Not Given Pantoprazole Sodium (Protonix Ec Tab) 40 mg PO DAILY [facility] Last Admin: 02/21/18 12:17 Dose: Not Given - Labs Labs: 02/20/18 14:37 02/20/18 14:37 PT 12.5 SECONDS (9.7-12.2) H 02/20/18 14:37 INR 1.1 02/20/18 14:37 APTT 30 SECONDS (21-34) 02/20/18 14:37 - Constitutional Appears: Well - Head Exam Head Exam: ATRAUMATIC, NORMAL INSPECTION, NORMOCEPHALIC - Eye Exam Eye Exam: EOMI, Normal appearance, PERRL Pupil Exam: NORMAL ACCOMODATION, PERRL - ENT Exam ENT Exam: Mucous Membranes Moist, Normal Exam - Neck Exam Neck Exam: Full ROM, Normal Inspection. absent: Lymphadenopathy - Respiratory Exam Respiratory Exam: Decreased Breath Sounds - Cardiovascular Exam Cardiovascular Exam: REGULAR RHYTHM, +S1, +S2 - GI/Abdominal Exam GI & Abdominal Exam: Soft, Diminished Bowel Sounds - Rectal Exam Rectal Exam: Deferred
--- NOTE | 2018-02-22 05:44 | CON ---
DATE: 02/21/2018 HISTORY OF PRESENT ILLNESS: This is a 72-year-old woman with known adenocarcinoma of the lung. She presented about a year ago, already metastatic stage 4, metastasis to the opposite lung. We treated her with chemotherapy. She has been on various regimens including Taxotere, Alimta/carboplatin, and most recently, Gemzar/carboplatin. About several weeks ago, she was having increasing shortness of breath. We talked about switching her to immunotherapy or to give palliative radiation therapy to the lung. She was having increasing shortness of breath and increasing episodes of phlegm and infections. So, she started radiation therapy with Dr. Ld Huffman about a [id number] to two weeks ago. During that period of time, I just saw her recently only about a week ago, and she complained of shortness of breath but she get her radiation therapy. Evidently, she was having pains when she was laid on the table, was not telling anyone. She suddenly was telling me and that pain started about two weeks ago, but that pain started increasing this week, Wednesday and Wednesday, when she got her radiation therapy. On Wednesday, she was cooking for [employer], and she started having severe weakness of her legs. , she was not able to move. Her son had to pick her up to bring her to the kitchen so that she could cook and she was not able to planting material remover her legs. She was not getting any better Wednesday and Wednesday; and she said to me she was trying to hold off, and then finally on Wednesday, she came to the hospital. They had to call the ambulance to bring her. She could not move her legs. She also could not urinate and she does not feel her rectum in order to move her bowels. Her x-rays now show T3-T4 lesion and T11-T12 lesion and a calcium of 11. PHYSICAL EXAMINATION: SKIN: No petechiae, no bruises. HEENT: Anicteric. NODES: Nonpalpable in the axillary, cervical, supraclavicular, or inguinal regions. LUNGS: Clear at present. No vertebral tenderness. The patient is able to lie flat in bed. HEART: S1 and S2. ABDOMEN: Shows no liver, no spleen, no tenderness. EXTREMITIES: No edema. CENTRAL NERVOUS SYSTEM: The patient is paralyzed. She cannot move her legs. paralysis, the son was there. I went over the history explaining that she was stage 4, and therefore, incurable from the very beginning and that we have been trying to make the cancer sleep. When it wakes up, we change her chemotherapy and treatment, but now it has woken up very rapidly and has gone to two different places of her back and the . I told him that she is paralyzed now with no response to steroids for several days, I said that operation will be of no value to her, it will not make her walk again. Furthermore radiation therapy to the back will not make her walk again either, and at most, it will help some of the pain if she is still having it, but she does not seem to be. I explained that she will not be able to urinate and she will need enemas to move her bowels, and the major object now is to keep her as comfortable as we can. We will call palliative care and we will call discharge planning, and I did not mention hospice. She was not ready to go there yet, but they are aware that the cancer has rapidly grown. I then also brought up the issue of no code and she said absolutely she does not, and if something should happen to her suddenly that she has a blood clot or heart attack, she given instructions to my family and she turned to her son and said including my son here that when the time comes and I , I should be cremated, no viewing at all. So, she has made plans for the cremation. She has verbalized plans also of do not resuscitate setup. So, at this point, she is getting Decadron. She does feel well, no pain. We should call palliative care to further evaluate plans whether discharge planning will help us. Joni Beltrán MD
[2018-02-22] MEDS: Pantoprazole 40 mg EC Tab PO SCH (09:36)
[2018-02-22] MEDS: Enoxaparin 40 mg Syringe SC SCH (09:40)
--- NOTE | 2018-02-22 12:47 | CP.PCM.PN ---
Subjective - Date & Time of Evaluation Date of Evaluation: 02/22/18 Time of Evaluation: 07:50 - Subjective Subjective: clinically same Objective - Vital Signs/Intake and Output Vital Signs (last 24 hours): Temp Pulse Resp BP Pulse Ox 98.1 F 84 20 145/79 95 02/22/18 08:00 02/22/18 08:00 02/22/18 08:00 02/22/18 08:00 02/22/18 08:00 Intake and Output: 02/22/18 02/22/18 06:59 18:59 Intake Total 120 Output Total 750 350 Balance -750 -230 - Medications Medications: Current Medications Albuterol/Ipratropium (Duoneb 3 Mg/0.5 Mg (3 Ml) Ud) 3 ml INH RQ6 PRN PRN Reason: Wheezing Amlodipine Besylate (Norvasc) 5 mg PO QPM [facility] Last Admin: 02/21/18 19:19 Dose: Not Given Aspirin (Ecotrin) 81 mg PO DAILY [facility] Last Admin: 02/22/18 09:35 Dose: 81 mg Dexamethasone (Decadron Inj) 10 mg IV Q6 [facility] Last Admin: 02/22/18 11:40 Dose: 10 mg Docusate Sodium (Colace) 100 mg PO BID [facility] Last Admin: 02/22/18 09:35 Dose: 100 mg Enoxaparin Sodium (Lovenox) 40 mg SC DAILY [facility] Last Admin: 02/22/18 09:40 Dose: 40 mg Ergocalciferol (Drisdol 50,000 Intl Units Cap) 1 cap PO QWK [facility] Fluoxetine HCl (Prozac) 10 mg PO QPM [facility] Last Admin: 02/21/18 19:20 Dose: Not Given Hydromorphone HCl (Dilaudid) 1 mg IVP Q12H PRN PRN Reason: Pain, severe (8-10) Last Admin: 02/21/18 23:03 Dose: 1 mg Levothyroxine Sodium (Synthroid) 75 mcg PO QPM [facility] Last Admin: 02/21/18 19:21 Dose: Not Given Ondansetron HCl (Zofran Inj) 4 mg IVP Q6H [facility] Last Admin: 02/22/18 09:38 Dose: Not Given Pantoprazole Sodium (Protonix Ec Tab) 40 mg PO DAILY [facility] Last Admin: 02/22/18 09:36 Dose: 40 mg - Labs Labs: 02/20/18 14:37 02/20/18 14:37 PT 12.5 SECONDS (9.7-12.2) H 02/20/18 14:37 INR 1.1 02/20/18 14:37 APTT 30 SECONDS (21-34) 02/20/18 14:37 - Constitutional Appears: Well - Head Exam Head Exam: ATRAUMATIC, NORMAL INSPECTION, NORMOCEPHALIC - Eye Exam Eye Exam: EOMI, Normal appearance, PERRL Pupil Exam: NORMAL ACCOMODATION, PERRL - ENT Exam ENT Exam: Mucous Membranes Moist, Normal Exam - Neck Exam Neck Exam: Full ROM, Normal Inspection. absent: Lymphadenopathy - Respiratory Exam Respiratory Exam: Decreased Breath Sounds - Cardiovascular Exam Cardiovascular Exam: REGULAR RHYTHM, +S1, +S2 - GI/Abdominal Exam GI & Abdominal Exam: Soft, Diminished Bowel Sounds - Rectal Exam Rectal Exam: Deferred
[2018-02-22] MEDS: HYDROmorphone 1 mg/ml ISec IVP PRN (22:34)
[2018-02-23] MEDS: LEVOTHYROXINE 75 MCG PO SCH ×2 (06:15→17:49)
[2018-02-23 08:33] LABS: HEMOGLOBIN 11.8 g/dL (11.0-16.0); LYMPH # 0.2 K/uL (1.0-4.3); LYMPH % 2.8 % (20.0-40.0); MEAN CELL VOLUME 82.4 fL (81.0-99.0); MEAN CORPUSCULAR HEMOGLOBIN 26.5 pg (27.0-31.0); MEAN CORPUSCULAR HGB CONC 32.2 g/dL (33.0-37.0); MEAN PLATELET VOLUME 7.6 fL (7.2-11.7); MONO # 0.4 K/uL (0.0-0.8); MONO % 4.4 % (0.0-10.0); NEUT # 7.9 K/uL (1.8-7.0); NEUT % 92.8 % (50.0-75.0); PLATELET COUNT 298 K/uL (130-400); RBC 4.45 Mil/uL (3.80-5.20); RED CELL DISTRIBUTION WIDTH 19.8 % (11.5-14.5); WHITE BLOOD COUNT 8.5 K/uL (4.8-10.8)
[2018-02-23 08:41] LABS: ALB/GLOB RATIO 1.1 (1.0-2.1); ALBUMIN 3.7 g/dL (3.5-5.0); ALT/SGPT 31 U/L (9-52); AST/SGOT 62 U/L (14-36); BLOOD UREA NITROGEN 55 mg/dL (7-17); CALCIUM 10.3 mg/dl (8.6-10.4); GFR NON-AFRICAN AMERICAN > 60
[2018-02-23] MEDS: Enoxaparin 40 mg Syringe SC SCH (09:16)
[2018-02-23] MEDS: Pantoprazole 40 mg EC Tab PO SCH (09:16)
[2018-02-23 09:55] LABS: ANISOCYTOSIS SLIGHT; HYPOCHROMIC SLIGHT; LYMPHOCYTE 6 % (20-40); MONOCYTE 4 % (0-10); NEUTROPHIL 90 % (50-75); PLATELET ESTIMATE NORMAL (NORMAL); POIKILOCYTOSIS SLIGHT; TOTAL CELLS COUNTED 100
[2018-02-23 09:56] LABS: OVALOCYTES SLIGHT
[2018-02-23 09:57] LABS: LARGE PLATELETS PRESENT
[2018-02-23 11:29] LABS: HEMOGLOBIN 12.4 g/dL (11.0-16.0); MEAN CELL VOLUME 81.6 fL (81.0-99.0); MEAN CORPUSCULAR HEMOGLOBIN 26.2 pg (27.0-31.0); MEAN CORPUSCULAR HGB CONC 32.1 g/dL (33.0-37.0); MEAN PLATELET VOLUME 7.4 fL (7.2-11.7); RBC 4.72 Mil/uL (3.80-5.20); RED CELL DISTRIBUTION WIDTH 19.5 % (11.5-14.5); WHITE BLOOD COUNT 9.7 K/uL (4.8-10.8)
[2018-02-23 12:21] LABS: ALB/GLOB RATIO 1.1 (1.0-2.1); ALBUMIN 3.7 g/dL (3.5-5.0); ALT/SGPT 32 U/L (9-52); AST/SGOT 59 U/L (14-36); BLOOD UREA NITROGEN 56 mg/dL (7-17); CALCIUM 10.5 mg/dl (8.6-10.4); GFR NON-AFRICAN AMERICAN > 60
--- NOTE | 2018-02-23 13:20 | PCM.PSYCH ---
Initial Psychiatric Evaluation - Initial Psychiatric Evaluation Type of Admission: Voluntary Legal Status: Capacity History of Present Illness and Precipitating Events: Patient seen, chart reviewed, case discussed HPI: the patient is a 72-year-old , retired white female with 2 adult children. The patient came to the hospital on three days ago because of her difficulty associated with radiation treatment for her bilateral lung cancer. The patient has had 7 radiation treatments, with the last treatment last Wednesday. The patient states that she is very agitated with the hospital staff. The patient states she has an extensive medical background and knows a lot of well-known and highly positioned physicians. The patient states that some of the staff was terrible and would no longer be able to treat her, but had high praise for other members of the staff. The patient slept on and off but has difficulty sleeping because of her agitation towards the hospital staff. The patient states that her body feels fatigued and that her legs will not move because of her radiation therapy. The patient denies any suicidal or homicidal ideations. The patient denies any alcohol or drug use but states that she smoked 0.5 pack cigarettes per day since she was 20 years old until she quit 16 years ago. The patient states that she has a history of thyroid problems in the past that has caused her depression and anxiety symptoms. The patient is currently taking Prozac, which she states is the only medication that helps her thyroid symptoms. The patient is also taking medication for her thyroid and high blood pressure. Past Psych History: Depressive and anxiety symptoms Past Medical History: Bilateral lung cancer, Graves disease, HTN Family Psych History: Mother had history of bipolar disorder Current Medications: Active Medications Generic Name Dose Route Start Last Admin Trade Name Freq PRN Reason Stop Dose Admin Albuterol/Ipratropium 3 ml 02/20/18 21:03 Duoneb 3 Mg/0.5 Mg (3 Ml) Ud INH RQ6 PRN Wheezing Aspirin 81 mg 02/21/18 10:00 02/23/18 09:15 Ecotrin PO 81 mg DAILY [facility] Administration Dexamethasone 10 mg 02/21/18 00:00 02/23/18 11:05 Decadron Inj IV Not Given Q6 [facility] Docusate Sodium 100 mg 02/21/18 10:00 02/23/18 09:15 Colace PO 100 mg BID [facility] Administration Enoxaparin Sodium 40 mg 02/21/18 10:00 02/23/18 09:16 Lovenox SC 40 mg DAILY [facility] Administration Ergocalciferol 1 cap 02/28/18 10:00 Drisdol 50,000 Intl Units Cap PO QWK [facility] Home Med 1 tab 02/23/18 06:30 02/23/18 06:15 Patient's Own Medication PO Not Given DAILY@0630 [facility] Home Med 1 tab 02/23/18 18:00 Patient's Own Medication PO QPM [facility] Home Med 1 tab 02/23/18 18:00 Patient's Own Medication PO QPM [facility] Hydromorphone HCl 1 mg 02/21/18 14:30 02/22/18 22:34 Dilaudid IVP 1 mg Q12H PRN Administration Pain, severe (8-10) Ondansetron HCl 4 mg 02/21/18 14:30 02/23/18 09:17 Zofran Inj IVP Not Given Q6H [facility] Pantoprazole Sodium 40 mg 02/21/18 10:00 02/23/18 09:16 Protonix Ec Tab PO Not Given DAILY [facility] Past Psychiatric History - Past Psychiatric History Pertinent Medical Hx (Current Medical&Sleep Prob, Allergies): Allergies Allergy/AdvReac Type Severity Reaction Status Date / Time FISH Allergy Severe VOMITING Verified 02/20/18 13:04 iodine Allergy Severe VOMITING Verified 02/20/18 13:04 FLUoxetine [Prozac] 10 mg PO QPM 09/22/16 Levothyroxine Sodium [Levoxyl] 75 mcg PO QPM 09/22/16 amLODIPine [Norvasc] 5 mg PO QPM 09/22/16 Aspirin [Adult Low Dose Aspirin EC] 81 mg PO DAILY 10/23/16 Cholecalciferol [Vitamin D] 1,000 iu PO DAILY 10/23/16 DSM 5 DX - DSM 5 DSM 5 Diagnosis: Adjustment Disorder with anxiety Depressive d/o - unspecified Narcissistic personality d/o Lung Cancer b/l Graves Disease HTN - Recommended/Plan of Treatment Treatment Recommendations and Plan of Treatment: Cleared for d/c Continue Prozac Consider individual therapy 31 min
[2018-02-23] MEDS: HYDROmorphone 1 mg/ml ISec IVP PRN ×2 (13:24→21:32)
--- NOTE | 2018-02-23 17:52 | CARD ---
APPROVED REPORT Date of service: 02/20/2018 EKG Measurement Heart [id number] ID [id number] <Conclusion> Normal sinus rhythm Possible Left atrial enlargement Borderline ECG
--- NOTE | 2018-02-23 17:58 | CP.PCM.PN ---
Subjective - Date & Time of Evaluation Date of Evaluation: 02/23/18 Time of Evaluation: 07:20 - Subjective Subjective: clinically same Objective - Vital Signs/Intake and Output Vital Signs (last 24 hours): Temp Pulse Resp BP Pulse Ox 98 F 96 H 20 143/87 95 02/23/18 08:21 02/23/18 08:21 02/23/18 08:21 02/23/18 08:21 02/23/18 08:21 Intake and Output: 02/23/18 02/23/18 06:59 18:59 Intake Total 150 Output Total 200 Balance -50 - Medications Medications: Current Medications Albuterol/Ipratropium (Duoneb 3 Mg/0.5 Mg (3 Ml) Ud) 3 ml INH RQ6 PRN PRN Reason: Wheezing Aspirin (Ecotrin) 81 mg PO DAILY [facility] Last Admin: 02/23/18 09:15 Dose: 81 mg Dexamethasone (Decadron Inj) 10 mg IV Q6 [facility] Last Admin: 02/23/18 11:05 Dose: Not Given Docusate Sodium (Colace) 100 mg PO BID [facility] Last Admin: 02/23/18 17:53 Dose: Not Given Enoxaparin Sodium (Lovenox) 40 mg SC DAILY [facility] Last Admin: 02/23/18 09:16 Dose: 40 mg Ergocalciferol (Drisdol 50,000 Intl Units Cap) 1 cap PO QWK [facility] Home Med (Patient's Own Medication) 1 tab PO DAILY@0630 [facility] Last Admin: 02/23/18 17:49 Dose: 1 tab Home Med (Patient's Own Medication) 1 tab PO QPM [facility] Last Admin: 02/23/18 17:48 Dose: 1 tab Home Med (Patient's Own Medication) 1 tab PO QPM [facility] Last Admin: 02/23/18 17:48 Dose: 1 tab Hydromorphone HCl (Dilaudid) 1 mg IVP Q12H PRN PRN Reason: Pain, severe (8-10) Last Admin: 02/23/18 13:24 Dose: 1 mg Ondansetron HCl (Zofran Inj) 4 mg IVP Q6H [facility] Last Admin: 02/23/18 15:31 Dose: Not Given Pantoprazole Sodium (Protonix Ec Tab) 40 mg PO DAILY [facility] Last Admin: 02/23/18 09:16 Dose: Not Given - Labs Labs: 02/23/18 11:23 02/23/18 11:23 PT 12.5 SECONDS (9.7-12.2) H 02/20/18 14:37 INR 1.1 02/20/18 14:37 APTT 30 SECONDS (21-34) 02/20/18 14:37 - Constitutional Appears: Well - Head Exam Head Exam: ATRAUMATIC, NORMAL INSPECTION, NORMOCEPHALIC - Eye Exam Eye Exam: EOMI, Normal appearance, PERRL Pupil Exam: NORMAL ACCOMODATION, PERRL - ENT Exam ENT Exam: Mucous Membranes Moist, Normal Exam - Neck Exam Neck Exam: Full ROM, Normal Inspection. absent: Lymphadenopathy - Respiratory Exam Respiratory Exam: Decreased Breath Sounds - Cardiovascular Exam Cardiovascular Exam: REGULAR RHYTHM, +S1, +S2 - GI/Abdominal Exam GI & Abdominal Exam: Soft, Diminished Bowel Sounds - Rectal Exam Rectal Exam: Deferred
[2018-02-23] MEDS ORDERED: AMLODIPINE 5MG PO SCH (18:00)
[2018-02-23] MEDS ORDERED: FLUOXETINE 10 MG PO SCH (18:00)
[2018-02-24] MEDS: HYDROmorphone 1 mg/ml ISec IVP PRN (05:45)
--- NOTE | 2018-02-24 06:13 | PN ---
DATE: 02/23/2018 ONCOLOGY EVALUATION HISTORY OF PRESENT ILLNESS: A 72-year-old woman with widely metastatic lung cancer to her bones. CAT scans of the back and MRI show widespread metastasis including the cord compression at T3 and T12. The patient is on Decadron 10 mg every 6 hours with no benefit in terms of movement of the legs. She has a Santillan catheter at present. She has some pain in the back and the pain medicine is not really helping much. I spoke to her again and I said to her that our main object is to send her home as soon as possible. She would like to get further chemotherapy, even though she is not a full code. She recognized that the cancer is not curable and is widely metastatic. She, at this point, knows want to take immunotherapy, but I told her our first object is to get her home. I talked about hospice, that might give her the most help at home and working with her children, but she says that she put her mother on hospice. She understands what it is, but she thinks that the children will not be able to accept hospice and that that will take away their hope for her and that is why she does not think hospice would work for her. Furthermore, she wants to start her new chemotherapy medicine that could as soon as possible. I tried to delay that. I said first let us get her home and see how she is doing at home. So, at this point, she is agreeable to visiting their services. She is completely paralyzed. She is going to need help in terms of movement, in terms of getting in and out of that house, in terms of having a multimedia teacher Santillan catheter, and teach the family how to change it. She really needs full care for complete paralysis. So, I have asked her nurses to call palliative care and discharge planning to discuss this with her and to make plans and as soon as possible she can go home, that would be fine. There is no more diagnostic test there. She is not going for radiation therapy or surgery, and in terms of the chemotherapy, that will be given as an outpatient at a later date if she ever gets to that point. So, at this point, it is discharge planning. I also think hospice makes sense to at least evaluate her while she is in the hospital and maybe they can talk to her and the family too, which I think would be the best option of all. Joni Beltrán MD
[2018-02-24] MEDS: LEVOTHYROXINE 75 MCG PO SCH (06:30)
[2018-02-24 08:11] VITALS: BP 146/88; PULSE 88; TEMP 98.7; O2SAT 96
[2018-02-24] MEDS: Enoxaparin 40 mg Syringe SC SCH (10:53)
[2018-02-24] MEDS: Pantoprazole 40 mg EC Tab PO SCH (10:53)
--- NOTE | 2018-02-24 16:50 | CP.PCM.PN ---
Subjective - Date & Time of Evaluation Date of Evaluation: 02/24/18 Time of Evaluation: 16:50 - Subjective Subjective: alert, awake, no acute pain or distress noted. Objective - Vital Signs/Intake and Output Vital Signs (last 24 hours): Temp Pulse Resp BP Pulse Ox 98.7 F 88 20 146/88 96 02/24/18 08:07 02/24/18 08:07 02/24/18 08:07 02/24/18 08:07 02/24/18 08:07 Intake and Output: 02/24/18 02/24/18 06:59 18:59 Intake Total 400 250 Output Total 1600 600 Balance -1200 -350 - Medications Medications: Current Medications Albuterol/Ipratropium (Duoneb 3 Mg/0.5 Mg (3 Ml) Ud) 3 ml INH RQ6 PRN PRN Reason: Wheezing Aspirin (Ecotrin) 81 mg PO DAILY [facility] Last Admin: 02/24/18 10:53 Dose: 81 mg Dexamethasone (Decadron Inj) 10 mg IV Q6 [facility] Last Admin: 02/24/18 14:00 Dose: 10 mg Docusate Sodium (Colace) 100 mg PO BID [facility] Last Admin: 02/24/18 10:53 Dose: 100 mg Enoxaparin Sodium (Lovenox) 40 mg SC DAILY [facility] Last Admin: 02/24/18 10:53 Dose: 40 mg Ergocalciferol (Drisdol 50,000 Intl Units Cap) 1 cap PO QWK [facility] Home Med (Patient's Own Medication) 1 tab PO DAILY@0630 [facility] Last Admin: 02/24/18 06:30 Dose: Not Given Home Med (Patient's Own Medication) 1 tab PO QPM [facility] Last Admin: 02/23/18 17:48 Dose: 1 tab Home Med (Patient's Own Medication) 1 tab PO QPM [facility] Last Admin: 02/23/18 17:48 Dose: 1 tab Hydromorphone HCl (Dilaudid) 1 mg IVP Q8 PRN PRN Reason: pain Last Admin: 02/24/18 05:45 Dose: 1 mg Ondansetron HCl (Zofran Inj) 4 mg IVP Q6H [facility] Last Admin: 02/24/18 14:20 Dose: Not Given Pantoprazole Sodium (Protonix Ec Tab) 40 mg PO DAILY [facility] Last Admin: 02/24/18 10:53 Dose: 40 mg - Labs Labs: 02/23/18 11:23 02/23/18 11:23 PT 12.5 SECONDS (9.7-12.2) H 02/20/18 14:37 INR 1.1 02/20/18 14:37 APTT 30 SECONDS (21-34) 02/20/18 14:37 Assessment and Plan - Assessment and Plan (Free Text) Assessment: 72 year old female with advanced lung cancer, admitted with leg pain and weakness, seen and examined. Alert and oriented and in good spirits. Verbalized understanding of the discharge plans for today. Seen by the physical therapyst and the techniques of moving was showed to the son. Percocet given for pain management as needed. Advised to follow up with DR Beltrán and [facility] in 1 week. Home care and home PT arranged by the case investigator.
--- NOTE | 2018-02-24 18:36 | CON ---
DATE: 02/24/2018 HISTORY OF PRESENT ILLNESS: A 72-year-old woman with lung cancer widely metastatic to her bowels and lungs who presents with cord compression. She is completely paralyzed. She needs an indwelling catheter. She can move her bowels without enema and she cannot move out of bed. We are going to send her home today hopefully with home care services. She rejected the hospice services. She says she wants to continue getting treatment and I told her that she will go home today. PLAN: I spoke to her son this morning. The son will call me up tomorrow morning just to see how things are going and what other necessary needs are that have to be answered and then next week Wednesday I will talk to her again over the phone about treatment. I am trying not to give her the treatment any longer, but she does think that the immune therapy may help her. In any event, I told her right now first things first, get her home and see how things go at home. Joni Beltrán MD
[2018-02-28] MEDS ORDERED: Ergocalciferol 50,000 Intl Units Cap PO SCH (10:00)
--- NOTE | 2018-03-02 11:48 | PQF ---
PROVIDER RESPONSE TEXT: LEG WEAKNESS IS SECONDARY TO NEUROPATHY. REVIEWER QUERY TEXT: Clarification of Clinical Diagnostic Findings Please clarify documentation or clinical relevance for the clinical / diagnostic findings or whether those are insignificant or unable to be further specified. The patient's Clinical Indicators include: 72 Year old female with history of Ca Lung and nodules , presented to the ED complaining of pain to both legs and muscle spasms since 4 days ago. Patient states she has been having back pain an d since the treatment started. She is not able to sit and stand byherself. 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 I will start the patient on Decadron [address] Scan of the thoracic and Lumbar spine confirmed metastatic lesion at T4 and T11. Query created by: Lisa Gr on 02/28/2018 7:33 AM Electronically signed by: Francisco J YU 03/02/2018 11:45 AM
== END 2018-02-24 17:45 | disposition home or self-care (01) | DRG 74 ==
LOC: C.ER 12:51 → C.9E 15:54 → C.3T 02-21 15:57
PROVIDERS: ADMIT Internal Medicine Nephrology; ATTEND Internal Medicine Nephrology
DX: G62.9 Polyneuropathy, unspecified (principal); C79.51 Secondary malignant neoplasm of bone; S22.080A Wedge compression fracture of T11-T12 vertebra, initial encounter for closed fracture; C34.90 Malignant neoplasm of unspecified part of unspecified bronchus or lung; C78.4 Secondary malignant neoplasm of small intestine; G95.9 Disease of spinal cord, unspecified; G72.0 Drug-induced myopathy; M48.04 Spinal stenosis, thoracic region; I10 Essential (primary) hypertension; E03.9 Hypothyroidism, unspecified; F60.81 Narcissistic personality disorder; F43.22 Adjustment disorder with anxiety; F32.9 Major depressive disorder, single episode, unspecified; G83.9 Paralytic syndrome, unspecified; Z87.891 Personal history of nicotine dependence; T50.8X5A Adverse effect of diagnostic agents, initial encounter; Z51.5 Encounter for palliative care

== ENCOUNTER 2018-02-26 12:32 | Inpatient (IN) | payer MEDICARE ==
[2018-02-26 12:32] VITALS: BMI 28.8
[2018-02-26] MEDS ORDERED: Albuterol-Ipratrop 3 mg / 0.5 (3 ml) UD INH STA ×3 (12:51→12:52)
[2018-02-26] MEDS ORDERED: Albuterol-Ipratrop 3 mg / 0.5 (3 ml) UD ONE (13:17)
[2018-02-26 13:25] LABS: BASO % 0.1 % (0.0-2.0); EOS % 0.2 % (0.0-4.0); HEMOGLOBIN 13.3 g/dL (11.0-16.0); LYMPH # 0.4 K/uL (1.0-4.3); LYMPH % 3.6 % (20.0-40.0); MEAN CELL VOLUME 82.5 fL (81.0-99.0); MEAN CORPUSCULAR HGB CONC 31.5 g/dL (33.0-37.0); MEAN PLATELET VOLUME 7.6 fL (7.2-11.7); MONO % 10.2 % (0.0-10.0); NEUT # 8.5 K/uL (1.8-7.0); NEUT % 85.9 % (50.0-75.0); NRBC % 0.1 % (0.0-2.0); RBC 5.12 Mil/uL (3.80-5.20); RED CELL DISTRIBUTION WIDTH 20.2 % (11.5-14.5); WHITE BLOOD COUNT 9.9 K/uL (4.8-10.8)
[2018-02-26] MEDS: Magnesium Sulfate 1 gm in D5W 1 GM/100 ML BAG IVPB SCH ×2 (13:32→13:33)
[2018-02-26 13:34] LABS: PLATELET COUNT 185 K/uL (130-400)
[2018-02-26 14:24] LABS: LYMPHOCYTE 6 % (20-40); MONOCYTE 8 % (0-10); NEUTROPHIL 86 % (50-75); PLATELET ESTIMATE NORMAL (NORMAL); TOTAL CELLS COUNTED 100
[2018-02-26 14:25] LABS: ANISOCYTOSIS MODERATE; HYPOCHROMIC MODERATE; POIKILOCYTOSIS SLIGHT; POLYCHROMIC SLIGHT
[2018-02-26 14:26] LABS: OVALOCYTES SLIGHT
[2018-02-26 14:27] LABS: LARGE PLATELETS PRESENT; SPHEROCYTES SLIGHT
[2018-02-26 14:38] LABS: ALB/GLOB RATIO 1.2 (1.0-2.1); ALBUMIN 2.9 g/dL (3.5-5.0); ALT/SGPT 29 U/L (9-52); AST/SGOT 59 U/L (14-36); BLOOD UREA NITROGEN 48 mg/dL (7-17); CALCIUM 9.5 mg/dl (8.6-10.4); GFR NON-AFRICAN AMERICAN > 60
[2018-02-26] MEDS ORDERED: (Novolin R) Insulin Human Regular 100 units/ml vial IVP STA (14:46)
[2018-02-26] MEDS ORDERED: Sodium Chloride 0.9% 1,000 ML ONE (14:53)
[2018-02-26] MEDS ORDERED: (Novolin R) Insulin Human Regular 100 units/ml vial ONE (14:53)
[2018-02-26] MEDS: Sodium Chloride 0.9% 1,000 ML IV SCH (15:00)
--- NOTE | 2018-02-26 15:53 | RAD ---
Chest x-ray single frontal view HISTORY: Lung cancer. Comparison: 02/20/2018 Findings: Persistent large left hilar/infrahilar mass extending into the lower lung zone. Suggestion of small bilateral pleural effusions. Venous congestion. Patchy consolidative changes at the lung bases. Biapical pleural thickening. Tortuous aorta. Cardiomegaly. Degenerative changes in the spine. Impression: Persistent large left hilar/infrahilar mass extending into the lower lung zone. Suggestion of small bilateral pleural effusions. Venous congestion. Patchy consolidative changes at the lung bases. Biapical pleural thickening. Tortuous aorta. Cardiomegaly.
--- NOTE | 2018-02-26 15:57 | C.PDOC ---
History Of Present Illness 72 y/o with a PMHx of lung CA, presents to the ED acutely short of breath. Patient states she has been short of breath for last 2-3 days. She is also complaining of chronic pain to her thoracic spine. Denies any chest pain, fever, chills, dizziness, or productive cough. Time Seen by Provider: 02/26/18 12:39 Chief Complaint (Nursing): Shortness Of Breath History Per: Patient History/Exam Limitations: no limitations Onset/Duration Of Symptoms: Days Current Symptoms Are (Timing): Still Present Past Medical History Reviewed: Historical Data, Nursing Documentation, Vital Signs Vital Signs: Last Vital Signs Temp Pulse 96 H 02/26/18 12:39 Resp 28 H 02/26/18 12:39 BP 130/79 02/26/18 12:39 Pulse Ox 97 02/26/18 13:10 - Medical History PMH: Arthritis (HIP, BACK), Fractures, HTN, Hypothyroidism, Malignancy (Lung CA) Denies: Chronic Kidney Disease Surgical History: Cholecystectomy Denies: Pacemaker - [facility] Procedures FLUOROSCOPY OF GALLBLADDER & BILE DUCT USING L OSM CONTRAST (09/22/16) RESECTION OF GALLBLADDER, PERCUTANEOUS ENDOSCOPIC APPROACH (09/22/16) TRANSFUSE NONAUT RED BLOOD CELLS IN PERIPH VEIN, PERC (09/22/16) Family History: States: No Known Family Hx - Social History Hx Alcohol Use: No Hx Substance Use: No - Immunization History Hx Tetanus Toxoid Vaccination: No Hx Influenza Vaccination: No Hx Pneumococcal Vaccination: No Review Of Systems Except As Marked, All Systems Reviewed And Found Negative. Constitutional: Negative for: Fever, Chills Cardiovascular: Negative for: Chest Pain, Palpitations Respiratory: Positive for: Shortness of Breath. Negative for: Cough, Sputum Gastrointestinal: Negative for: Nausea, Vomiting Neurological: Negative for: Weakness, Numbness, Headache, Dizziness Physical Exam - Physical Exam Appears: Non-toxic, In Acute Distress (appears in mild to moderate distress) Skin: Warm, Dry Head: Atraumatic, Normacephalic Eye(s): bilateral: Normal Inspection, PERRL, EOMI Neck: Normal ROM Chest: Symmetrical Cardiovascular: Rhythm Regular, No Murmur Respiratory: No Rales, No Rhonchi, Wheezing (Bilateral expiratory wheezing), Other (Fair air entry) Gastrointestinal/Abdominal: Soft, No Tenderness, No Distention Extremity: Bilateral: Atraumatic, Normal Color And Temperature Pulses: Left Dorsalis Pedis: Normal, Right Dorsalis Pedis: Normal Neurological/Psych: Oriented x3, Normal Speech ED Course And Treatment - Laboratory Results Result Diagrams: 02/26/18 13:13 02/26/18 14:00 ECG: Interpreted By Me, Viewed By Me ECG Rhythm: Sinus Rhythm Rate From EC (bpm) O2 Sat by Pulse Oximetry: 97 (NC) Pulse Ox Interpretation: Normal - Other Rad CXR X-Ray: Read By Radiologist Interpretation: Accession No. : [id number]. Patient Name / ID : BECCA CARBALLO / [id number]. Exam Date : 02/26/2018 13:15:39 ( Approved ). Study Comment : Sex / Age : F / 72Y. Creator : Moises Powell MD. Dictator : Moises Powell MD. Steam Frame Operator : Labor Employment Associate : Moises Powell MD. Approver2 : Report Date : 02/26/2018 15:49:45. My Comment : . Chest x-ray single frontal view. HISTORY: Lung cancer. Comparison: 02/20/2018. Findings: Persistent large left hilar/infrahilar mass extending into the lower lung zone. Suggestion of small bilateral pleural effusions. Venous congestion. Patchy consolidative changes at the lung bases. Biapical pleural thickening. Tortuous aorta. Cardiomegaly. Degenerative changes in the spine. Impression: Persistent large left hilar/infrahilar mass extending into the lower lung zone. Suggestion of small bilateral pleural effusions. Venous congestion. Patchy consolidative changes at the lung bases. Biapical pleural thickening. Tortuous aorta. Cardiomegaly. Medical Decision Making Medical Decision Making: Impression: SOB Initial Plan: --EKG --Troponin I --CMP --CBC --Flu swab --Chest x-ray --Duoneb 3ml INH x3 --Mag sulfate 1 gm IV --Solu Medrol 125 mg IVP --Peak Flow pre/post neb --Reeval Progress/Updates: Labs show blood sugar 447. Initiated NS IV fluids and insulin as per [facility] erglycemia protocol. On re-evaluation patient is saturating on 99% via nasal cannula. Dr. Emy Chacon notified, patient admitted to his service in tele. Disposition Counseled Patient/Family Regarding: Studies Performed, Diagnosis - Disposition Disposition: HOSPITALIZED Disposition Time: 14:47 Condition: FAIR - Clinical Impression Clinical Impression: Respiratory distress, Lung cancer - Scribe Statement The provider has reviewed the documentation as recorded by the Tonio Braswell Provider Attestation: All medical record entries made by the Tonio were at my direction and personally dictated by me. I have reviewed the chart and agree that the record accurately reflects my personal performance of the history, physical exam, medical decision making, and the department course for this patient. I have also personally directed, reviewed, and agree with the discharge instructions and disposition.
--- NOTE | 2018-02-26 20:08 | CP.PCM.HP ---
Past Patient History - Past Medical History & Family History Past Medical History?: Yes - Past Social History Smoking Status: Former Smoker - CARDIAC Hx Cardiac Disorders: Yes Hx Hypertension: Yes - PULMONARY Hx Respiratory Disorders: Yes Other/Comment: Lung Ca Rt and Lt. - NEUROLOGICAL Hx Neurological Disorder: No - HEENT Hx HEENT Problems: No - RENAL Hx Chronic Kidney Disease: No - ENDOCRINE/METABOLIC Hx Endocrine Disorders: Yes Hx Hypothyroidism: Yes - HEMATOLOGICAL/ONCOLOGICAL Hx Blood Disorders: Yes Hx Cancer: Yes (lung) - INTEGUMENTARY Hx Dermatological Problems: No - MUSCULOSKELETAL/RHEUMATOLOGICAL Hx Musculoskeletal Disorders: Yes Hx Arthritis: Yes (HIP, BACK) Hx Falls: Yes Hx Fractures: Yes - GASTROINTESTINAL Hx Gastrointestinal Disorders: No - GENITOURINARY/GYNECOLOGICAL Hx Genitourinary Disorders: No - PSYCHIATRIC Hx Psychophysiologic Disorder: No Hx Substance Use: No - SURGICAL HISTORY Hx Surgeries: Yes Hx Cholecystectomy: Yes - ANESTHESIA Hx Anesthesia: Yes Hx Anesthesia Reactions: No Hx Malignant Hyperthermia: No Has any member of the family had a problem w/ anesthesia?: No Meds Allergies/Adverse Reactions: Allergies Allergy/AdvReac Type Severity Reaction Status Date / Time FISH Allergy Severe VOMITING Verified 02/26/18 12:43 iodine Allergy Severe VOMITING Verified 02/26/18 12:43 shellfish derived Allergy Verified 02/26/18 12:43 strawberry Allergy Verified 02/26/18 12:43 Physical Exam - Constitutional Appears: Well - Head Exam Head Exam: ATRAUMATIC, NORMAL INSPECTION, NORMOCEPHALIC - Eye Exam Eye Exam: EOMI, Normal appearance, PERRL Pupil Exam: NORMAL ACCOMODATION, PERRL - ENT Exam ENT Exam: Mucous Membranes Moist, Normal Exam - Neck Exam Neck exam: Positive for: Normal Inspection - Respiratory Exam Respiratory Exam: Decreased Breath Sounds - Cardiovascular Exam Cardiovascular Exam: REGULAR RHYTHM, +S1, +S2 - GI/Abdominal Exam GI & Abdominal Exam: Diminished Bowel Sounds, Soft - Rectal Exam Rectal Exam: Deferred Results - Vital Signs Recent Vital Signs: Last Vital Signs Temp 97.3 F L 02/26/18 16:30 Pulse 81 02/26/18 20:02 Resp 18 02/26/18 16:30 BP 124/80 02/26/18 16:30 Pulse Ox 96 02/26/18 16:30 - Labs Result Diagrams: 02/26/18 13:13 02/26/18 14:00 Labs: Laboratory Results - last 24 hr 02/26/18 02/26/18 02/26/18 13:13 13:13 14:00 WBC 9.9 RBC 5.12 Hgb 13.3 Hct 42.3 MCV 82.5 MCH 26.0 L MCHC 31.5 L RDW 20.2 H Plt Count 185 D MPV 7.6 Neut % (Auto) 85.9 H Lymph % (Auto) 3.6 L [place] % (Auto) 10.2 H Eos % (Auto) 0.2 Baso % (Auto) 0.1 Neut # (Auto) 8.5 H Lymph # (Auto) 0.4 L [place] # (Auto) 1.0 H Eos # (Auto) 0.0 Baso # (Auto) 0.0 Neutrophils % (Manual) 86 H Lymphocytes % (Manual) 6 L Monocytes % (Manual) 8 Platelet Estimate Normal Large Platelets Present Polychromasia Slight Hypochromasia (manual) Moderate Poikilocytosis (manual Slight Anisocytosis (manual) Moderate Spherocytes Slight Ovalocytes Slight Sodium 127 L Potassium 4.1 Chloride 89 L Carbon Dioxide 33 H Anion Gap 10 BUN 48 H Creatinine 0.6 L Est GFR ( Amer) > 60 Est GFR (Non-Af Amer) > 60 Random Glucose 447 H* D Calcium 9.5 Total Bilirubin 0.6 AST 59 H ALT 29 Alkaline Phosphatase 84 Troponin I < 0.0120 Total Protein 5.3 L Albumin 2.9 L D Globulin 2.4 Albumin/Globulin Ratio 1.2 Influenza Typ A,B (EIA) Negative for flu a/b
[2018-02-26] MEDS: FLUOXETINE 20 MG PO SCH (20:40)
[2018-02-26] MEDS: LEVOTHYROXINE 75 MCG PO SCH (20:41)
[2018-02-26] MEDS: MethylPREDNISolone 40 mg Vial IVP SCH (21:06)
[2018-02-26] MEDS: Oxycodone/Acetaminophen 5/325 mg Tab PO PRN (22:51)
[2018-02-27] MEDS: Sodium Chloride 0.9% 1,000 ML IV SCH ×4 (00:58→20:39)
[2018-02-27] MEDS: Albuterol-Ipratrop 3 mg / 0.5 (3 ml) UD INH SCH ×4 (02:34→21:34)
[2018-02-27] MEDS: MethylPREDNISolone 40 mg Vial IVP SCH ×3 (05:58→21:38)
[2018-02-27] MEDS: Enoxaparin 40 mg Syringe SC SCH (09:56)
[2018-02-27] MEDS: Azithromycin 500 MG in Sodium Chloride 0.9% 250 ML IVPB SCH (10:01)
[2018-02-27] MEDS: Oxycodone/Acetaminophen 5/325 mg Tab PO PRN ×2 (12:00→22:48)
--- NOTE | 2018-02-27 13:00 | CP.PCM.PN ---
Subjective - Date & Time of Evaluation Date of Evaluation: 02/27/18 Time of Evaluation: 09:45 - Subjective Subjective: clinically same Objective - Vital Signs/Intake and Output Vital Signs (last 24 hours): Temp Pulse Resp BP Pulse Ox 98.4 F 85 18 156/90 H 97 02/27/18 07:32 02/27/18 07:32 02/27/18 07:32 02/27/18 07:32 02/27/18 07:32 Intake and Output: 02/27/18 02/27/18 06:59 18:59 Intake Total 1320 Output Total 650 Balance 670 - Medications Medications: Current Medications Albuterol/Ipratropium (Duoneb 3 Mg/0.5 Mg (3 Ml) Ud) 3 ml INH RQ6 [facility] Last Admin: 02/27/18 08:26 Dose: 3 ml Aspirin (Ecotrin) 81 mg PO QPM [facility] Last Admin: 02/26/18 20:37 Dose: 81 mg Doxycycline Hyclate (Doryx) 100 mg PO BID [facility]; Protocol Last Admin: 02/27/18 09:59 Dose: 100 mg Enoxaparin Sodium (Lovenox) 40 mg SC DAILY [facility] Last Admin: 02/27/18 09:56 Dose: 40 mg Ergocalciferol (Drisdol 50,000 Intl Units Cap) 1 cap PO QWK [facility] Home Med (Patient's Own Medication) 1 tab PO QPM [facility] Last Admin: 02/26/18 20:41 Dose: 1 tab Home Med (Patient's Own Medication) 1 tab PO QPM [facility] Last Admin: 02/26/18 20:40 Dose: 1 tab Home Med (Patient's Own Medication) 1 tab PO QPM [facility] Last Admin: 02/26/18 20:41 Dose: 1 tab Sodium Chloride (Sodium Chloride 0.9%) 1,000 mls @ 100 mls/hr IV .Q10H [facility] Last Admin: 02/27/18 11:25 Dose: Not Given Azithromycin 500 mg/ Sodium (Chloride) 250 mls @ 250 mls/hr IVPB DAILY [facility]; Protocol Last Admin: 02/27/18 10:01 Dose: 250 mls/hr Ceftriaxone Sodium 1 gm/ (Sodium Chloride) 100 mls @ 100 mls/hr IVPB DAILY [facility]; Protocol Last Admin: 02/27/18 10:00 Dose: 100 mls/hr Methylprednisolone (Solu-Medrol) 40 mg IVP Q8H [facility] Last Admin: 02/27/18 05:58 Dose: 40 mg Oxycodone/Acetaminophen (Percocet 5/325 Mg Tab) 1 tab PO Q6H PRN PRN Reason: Pain, moderate (4-7) Stop: 03/01/18 18:29 Last Admin: 02/27/18 12:00 Dose: 1 tab - Labs Labs: 02/26/18 13:13 02/26/18 14:00 - Constitutional Appears: Well - Head Exam Head Exam: ATRAUMATIC, NORMAL INSPECTION, NORMOCEPHALIC - Eye Exam Eye Exam: EOMI, Normal appearance, PERRL Pupil Exam: NORMAL ACCOMODATION, PERRL - ENT Exam ENT Exam: Mucous Membranes Moist, Normal Exam - Neck Exam Neck Exam: Full ROM, Normal Inspection. absent: Lymphadenopathy - Respiratory Exam Respiratory Exam: Decreased Breath Sounds - Cardiovascular Exam Cardiovascular Exam: REGULAR RHYTHM, +S1, +S2 - GI/Abdominal Exam GI & Abdominal Exam: Soft, Diminished Bowel Sounds - Rectal Exam Rectal Exam: Deferred
[2018-02-27] MEDS: FLUOXETINE 20 MG PO SCH (17:17)
[2018-02-27] MEDS: LEVOTHYROXINE 75 MCG PO SCH (17:17)
--- NOTE | 2018-02-27 18:13 | CON ---
DATE: 02/27/2018 HISTORY OF PRESENT ILLNESS: This is a 72-year-old lady with lung cancer that I have been treating here for the last few years. She was just discharged only few days ago from the hospital. She has lung cancer and widely metastatic to her lungs and also to her bones. 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 We sent her home on Wednesday with home care, etc., but she was getting increasingly short of breath and pain, etc. The family really could not take care of her, which is why she is back in the hospital. PHYSICAL EXAMINATION: SKIN: No petechiae, no bruises. HEENT: Anicteric. NODES: Nonpalpable. LUNGS: Clear at present. She is able to lie flat in bed. HEART: S1 and S2. ABDOMEN: Shows no liver, no spleen, no tenderness. EXTREMITIES: No edema. CENTRAL NERVOUS SYSTEM: No focal findings other than in terms of cranial nerves. She is paralyzed. ASSESSMENT AND PLAN: Steroids are of no help to her in terms of the paralysis. She has no radiation therapy just a few days ago in terms of she is incurable that she has progressive cancer, I offered hospice. She said she wanted to get more chemotherapy and so we sent her home in the same services; however, at this point her glucose was in the 440 range, BUN was 48, and she was increasingly short of breath without oxygen at home. At this point, I told her again I have to talk about perhaps a facility rather than home. I do not think that her family, the and the son can take care of her and also about hospice again. We discussed that right now we will treat her for the dehydration . Joni Beltrán MD
[2018-02-28] MEDS: Albuterol-Ipratrop 3 mg / 0.5 (3 ml) UD INH SCH ×4 (02:01→20:05)
[2018-02-28] MEDS: Sodium Chloride 0.9% 1,000 ML IV SCH ×3 (02:54→17:32)
[2018-02-28] MEDS: MethylPREDNISolone 40 mg Vial IVP SCH ×2 (05:00→13:23)
[2018-02-28] MEDS: Oxycodone/Acetaminophen 5/325 mg Tab PO PRN (05:00)
[2018-02-28] MEDS: Enoxaparin 40 mg Syringe SC SCH (09:23)
[2018-02-28] MEDS: Azithromycin 500 MG in Sodium Chloride 0.9% 250 ML IVPB SCH (09:25)
[2018-02-28] MEDS ORDERED: Bisacodyl 5mg EC Tab PO ONE (11:11)
[2018-02-28] MEDS: Morphine 15 mg SR Tab PO SCH ×2 (11:42→21:28)
--- NOTE | 2018-02-28 12:52 | CP.PCM.CON ---
History of Present Illness - History of Present Illness History of Present Illness: Palliative consult requested by Doctor Emy Chacon for goals of care discussion and possible hospice care Patient is a 72 yo female admitted from home with SOB X 3days. Patient was discharged from this hospital just last week. No o2 use at home. Patient has known Hx of breast cancer with mets to bones. Patient has been treated by Doctor Beltrán X few years. 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 Doctor Leigh Ann has suggested Hospice . CXR on this admission was significant for persistent left lower lung mass and venous congestion. Zithromax on board. PMH: arthritis, HTN, lung cancer with mets Soc. Hx: lives at home, has home administrator, family involved in care Fam. Hx: denies Review of Systems - Constitutional Constitutional: Weakness - EENT Eyes: absent: As Per HPI, Blind Spots, Blurred Vision, Change in Vision, Decreased Night Vision, Diplopia, Discharge, Dry Eye, Exophthalmos, Floaters, Irritation, Itchy Eyes, Loss of Peripheral Vision, Pain, Photophobia, Requires Corrective Lenses, Sees Flashes, Spots in Vision, Tunnel Vision, Other Visual Disturbances, Loss of Vision, Other Ears: absent: As Per HPI, Decreased Hearing, Ear Discharge, Ear Pain, Tinnitus, Abnormal Hearing, Disequilibrium, Dizziness, Other Nose/Mouth/Throat: absent: As Per HPI, Epistaxis, Nasal Congestion, Nasal Discharge, Nasal Obstruction, Nasal Trauma, Nose Pain, Post Nasal Drip, Sinus Pain, Sinus Pressure, Bleeding Gums, Change in Voice, Dental Pain, Dry Mouth, Dysphagia, Halitosis, Hoarsness, Lip Swelling, Mouth Lesions, Mouth Pain, Odynophagia, Sore Throat, Throat Swelling, Tongue Swelling, Facial Pain, Neck Pain, Neck Mass, Other - Breasts Breasts: absent: As Per HPI, Change in Shape, Mass, Pain, Nipple Discharge, Nipple Inversion, Skin Changes, Swelling, Other - Cardiovascular Cardiovascular: Dyspnea, Dyspnea on Exertion - Respiratory Respiratory: Dyspnea, Dyspnea on Exertion - Gastrointestinal Gastrointestinal: Constipation - Genitourinary Genitourinary: absent: As Per HPI, Change in Urinary Stream, Difficulty Urinating, Dysuria, Flank Pain, Hematuria, Pyuria, Nocturia, Urinary Incontinence, Urinary Frequency, Urinary Hesitance, Urinary Urgency, Voiding Freq/Small Amts, Freq UTI, Hx Renal/Bladder Calculi, Hx /Renal Surgery, Bladder Distension, Other - Reproductive: Female Reproductive:Female: Post Menopausal - Menstruation Menstruation: Post Menopausal - Musculoskeletal Musculoskeletal: Deformity, Limited Range of Motion, Muscle Weakness - Integumentary Integumentary: absent: As Per HPI, Acne, Alopecia, Bleeding Lesions, Change in Hair, Change in Nails, Change in Pigmentation, Changing Lesions, Dry Skin, Erythema, Furuncle, Hirsutism, Lesions, New Lesions, Non-Healing Lesions, Photosensitivity, Pruritus, Rash, Skin Pain, Skin Ulcer, Sores, Striae, Sw elling, Unusual Bruising, Wounds, Jaundice, Other - Neurological Neurological: absent: As Per HPI, Abnormal Gait, Abnormal Hearing, Abnormal Movements, Abnormal Speech, Behavioral Changes, Burning Sensations, Confusion, Convulsions, Disequilibrium, Dizziness, Numbness, Focal Weakness, Frequent Falls, Headaches, Lack of Coordination, Loss of Vision, Memory Loss, Paresthesias, Radicular Pain, Restless Legs, Sensory Deficit, Syncope, Tingling, Tremor, Vertigo, Weakness, Other Visual Disturbances, Other - Psychiatric Psychiatric: absent: As Per HPI, Abnormal Sleep Pattern, Anhedonia, Anxiety, Auditory Hallucinations, Behavioral Changes, Change in Appetite, Change in Libido, Confusion, Depression, Difficulty Concentrating, Hallucinations, Homicidal Ideation, Hopelessness, Irritability, Memory Loss, Mood Swings, Panic Attacks, Paranoia, Suicidal Ideation, Visual Hallucinations, Tactile Hallucinations, Other - Endocrine Endocrine: absent: As Per HPI, Change in Body Appearance, Change in Libido, Cold Intolorance, Deepening of Voice, Excessive Sweating, Fatigue, Flushing, Heat Intolorance, Increase in Ring/Shoe/Hat Size, Palpitations, Polydipsia, Polyphagia, Polyuria, Other - Hematologic/Lymphatic Hematologic: absent: As Per HPI, Easy Bleeding, Easy Bruising, Lymphadenopathy, Other Past Patient History - Past Medical History & Family History Past Medical History?: Yes - Past Social History Smoking Status: Former Smoker - CARDIAC Hx Hypertension: Yes Hx Pacemaker: No - PULMONARY Hx Respiratory Disorders: Yes Other/Comment: Lung Ca Rt and Lt. - NEUROLOGICAL Hx Neurological Disorder: No - HEENT Hx HEENT Problems: No - RENAL Hx Chronic Kidney Disease: No - ENDOCRINE/METABOLIC Hx Hypothyroidism: Yes - HEMATOLOGICAL/ONCOLOGICAL Hx Blood Disorders: Yes Hx Cancer: Yes (lung) - INTEGUMENTARY Hx Dermatological Problems: No - MUSCULOSKELETAL/RHEUMATOLOGICAL Hx Arthritis: Yes (HIP, BACK) Hx Fractures: Yes - GASTROINTESTINAL Hx Gastrointestinal Disorders: No - GENITOURINARY/GYNECOLOGICAL Hx Genitourinary Disorders: No - PSYCHIATRIC Hx Substance Use: No - SURGICAL HISTORY Hx Cholecystectomy: Yes - ANESTHESIA Hx Anesthesia: Yes Hx Anesthesia Reactions: No Hx Malignant Hyperthermia: No Has any member of the family had a problem w/ anesthesia?: No Meds Allergies/Adverse Reactions: Allergies Allergy/AdvReac Type Severity Reaction Status Date / Time FISH Allergy Severe VOMITING Verified 02/26/18 12:43 iodine Allergy Severe VOMITING Verified 02/26/18 12:43 shellfish derived Allergy Verified 02/26/18 12:43 strawberry Allergy Verified 02/26/18 12:43 - Medications Medications: Current Medications Albuterol/Ipratropium (Duoneb 3 Mg/0.5 Mg (3 Ml) Ud) 3 ml INH RQ6 [facility] Last Admin: 02/28/18 07:51 Dose: 3 ml Aspirin (Ecotrin) 81 mg PO QPM [facility] Last Admin: 02/27/18 17:16 Dose: 81 mg Docusate Sodium (Colace) 100 mg PO BID [facility] Last Admin: 02/28/18 11:41 Dose: 100 mg Doxycycline Hyclate (Doryx) 100 mg PO BID [facility]; Protocol Last Admin: 02/28/18 09:44 Dose: 100 mg Enoxaparin Sodium (Lovenox) 40 mg SC DAILY [facility] Last Admin: 02/28/18 09:23 Dose: 40 mg Ergocalciferol (Drisdol 50,000 Intl Units Cap) 1 cap PO QWK [facility] Home Med (Patient's Own Medication) 1 tab PO QPM [facility] Last Admin: 02/27/18 17:17 Dose: 1 tab Home Med (Patient's Own Medication) 1 tab PO QPM [facility] Last Admin: 02/27/18 17:17 Dose: 1 tab Home Med (Patient's Own Medication) 1 tab PO QPM [facility] Last Admin: 02/27/18 17:17 Dose: 1 tab Sodium Chloride (Sodium Chloride 0.9%) 1,000 mls @ 100 mls/hr IV .Q10H [facility] Last Admin: 02/28/18 09:26 Dose: Not Given Azithromycin 500 mg/ Sodium (Chloride) 250 mls @ 250 mls/hr IVPB DAILY [facility]; Protocol Last Admin: 02/28/18 09:25 Dose: 250 mls/hr Ceftriaxone Sodium 1 gm/ (Sodium Chloride) 100 mls @ 100 mls/hr IVPB DAILY [facility]; Protocol Last Admin: 02/28/18 09:24 Dose: 100 mls/hr Methylprednisolone (Solu-Medrol) 40 mg IVP Q8H [facility] Last Admin: 02/28/18 05:00 Dose: 40 mg Morphine Sulfate (Morphine Extended Release Tab) 30 mg PO Q12 [facility] Last Admin: 02/28/18 11:42 Dose: 30 mg Oxycodone/Acetaminophen (Percocet 5/325 Mg Tab) 1 tab PO Q6H PRN PRN Reason: Pain, moderate (4-7) Stop: 03/01/18 18:29 Last Admin: 02/28/18 05:00 Dose: 1 tab Physical Exam - Constitutional Appears: Chronically Ill - Head Exam Head Exam: ATRAUMATIC, NORMAL INSPECTION, NORMOCEPHALIC - Eye Exam Eye Exam: EOMI, Normal appearance, PERRL Pupil Exam: NORMAL ACCOMODATION, PERRL - ENT Exam ENT Exam: Mucous Membranes Moist, Normal Exam - Neck Exam Neck exam: Positive for: Normal Inspection - Respiratory Exam Respiratory Exam: Decreased Breath Sounds, Prolonged Expiratory Phase, NORMAL BREATHING PATTERN - Cardiovascular Exam Cardiovascular Exam: Tachycardia, REGULAR RHYTHM - GI/Abdominal Exam GI & Abdominal Exam: Hypoactive Bowel Sounds Additional comments: No BM X 1 week - Rectal Exam Rectal Exam: Deferred - Extremities Exam Additional comments: paralyzed from waist down - Back Exam Back exam: NORMAL INSPECTION - Neurological Exam Neurological exam: Alert, Oriented x3 - Psychiatric Exam Psychiatric exam: Anxious - Skin Skin Exam: Dry, Intact, Normal Color, Warm Results - Vital Signs Recent Vital Signs: Last Vital Signs Temp 97.3 F L 02/28/18 08:00 Pulse 88 02/28/18 08:00 Resp 20 02/28/18 08:00 BP 162/91 H 02/28/18 08:00 Pulse Ox 97 02/28/18 08:00 - Labs Result Diagrams: 02/26/18 13:13 02/26/18 14:00 Labs: Laboratory Results - last 24 hr 02/26/18 02/27/18 15:53 21:30 POC Glucose (mg/dL) 83 126 H Assessment & Plan - Assessment and Plan (Free Text) Assessment: Palliative consult Patient has no Advance Directive, PPS 40% I reviewed patient's medical records, all diagnostic studies, examined and interviewed patient in the bed Patient is alert, oriented X 3 , verbal , with mood that is appropriate. Son at bed side. Breathing is diminished. O2Sat 97% with O2. Denies cough. Reports O2 of 60% at home, on room air. Abdomen softly distended, hypoactive bowel sounds. Reports last BM 1 week ago. patient unable to move her LEs, nor to reposition in bed with out extensive assistance. Patient complains of lower back pain. Pain is often severe. Percocet PRN on board , for pain. Patient reports that often, it does not hold of the pain for more than 2 hr and she needs to wait in pain, until next due dose. On admission BS was 447; today is 126. Patient takes Solu Medrol what could increase the BS level. WBC 9.9, Hb 13.3, Alb 2.9 BP 162/81, HR 88, O2Sat 97 % with O2 Goals of care discussed with patient and her son at bed side. Patient is fully aware of her condition. Patient admits talking to Doctor Leigh Ann who had suggested hospice at home. Patient wishes to continue Chemo Tx despite otherwise sug gestions. I offered my concerns due to her lack of mobility and limited network of help at home. The son stated he was out of work at present and willing to take her to Chemo Tx infusion place. Patient and family do not want Senior [facility] placement. Patient further stated being evaluated by [facility] services at home. The final proposition on how many hours a day she would be assisted with care is still to come. Patient feels that with help from [facility] and her son, she would have enough of assistance. Patient owns WC and a ramp for by passing the stairs when leaving the house. Pain management discussed. I suggested long acting meds for pain in addition to PRN meds. Patient agreed. I discussed it with Jena MATERIAL CONTROL SUPERVISOR. Patient was also concerned with her constipation. She reports no Bm X 1 week.Patient understands it is most likely due to pain meds use and prolonged bed rest. We agreed upon D ulcolax supp and Lactulose PO if in agreement with PMD. Code status discussed. Patient and her son stated being fully aware of DNR/DNi status. They were given Form to complete at home but they have not yet. I intoroduced POLST and offer help with it. The son and patient chose DNR/DNI. POLST signed by patient. I shared this with Yazan CAO and Amanda , primary RN. Impression * Metastatic cancer disease * Hemiplegia from waist down * Shortness of breath * Limited mobility * Constipation * Pain cancer related * Patient wishes to continue Chemo Tx * Patient chose DNR/DNI if ordinary measures fail Suggestion * Continue O 2 at home post discharge * Assistance with ADLs * Patient to fallow up with [facility] * Would start MS Contin 30 mg PO BID for chronic pain and continue Percocet PRN break through pain * Dulcolax supp and Laculose Po until BM, than daily Colace and Senna tb for constipation * Continuing Chemo Tx to be discussed with Doctor Beltrán, as patient is insisting on it * DNR/DNI I agree with Doctor Beltrán regarding Hospice care at home, but patient has different view at this time. Palliative care will continue to fallow up with this patient until discharge. Advance care planing 60 min
--- NOTE | 2018-02-28 14:24 | CP.PCM.PN ---
Subjective - Date & Time of Evaluation Date of Evaluation: 02/28/18 Time of Evaluation: 09:15 - Subjective Subjective: clinically same Objective - Vital Signs/Intake and Output Vital Signs (last 24 hours): Temp Pulse Resp BP Pulse Ox 97.3 F L 88 20 162/91 H 97 02/28/18 08:00 02/28/18 08:00 02/28/18 08:00 02/28/18 08:00 02/28/18 08:00 Intake and Output: 02/28/18 02/28/18 06:59 18:59 Intake Total 1600 800 Output Total 800 Balance 800 800 - Medications Medications: Current Medications Albuterol/Ipratropium (Duoneb 3 Mg/0.5 Mg (3 Ml) Ud) 3 ml INH RQ6 [facility] Last Admin: 02/28/18 13:46 Dose: Not Given Aspirin (Ecotrin) 81 mg PO QPM [facility] Last Admin: 02/27/18 17:16 Dose: 81 mg Docusate Sodium (Colace) 100 mg PO BID [facility] Last Admin: 02/28/18 11:41 Dose: 100 mg Doxycycline Hyclate (Doryx) 100 mg PO BID [facility]; Protocol Last Admin: 02/28/18 09:44 Dose: 100 mg Enoxaparin Sodium (Lovenox) 40 mg SC DAILY [facility] Last Admin: 02/28/18 09:23 Dose: 40 mg Ergocalciferol (Drisdol 50,000 Intl Units Cap) 1 cap PO QWK [facility] Home Med (Patient's Own Medication) 1 tab PO QPM [facility] Last Admin: 02/27/18 17:17 Dose: 1 tab Home Med (Patient's Own Medication) 1 tab PO QPM [facility] Last Admin: 02/27/18 17:17 Dose: 1 tab Home Med (Patient's Own Medication) 1 tab PO QPM [facility] Last Admin: 02/27/18 17:17 Dose: 1 tab Sodium Chloride (Sodium Chloride 0.9%) 1,000 mls @ 100 mls/hr IV .Q10H [facility] Last Admin: 02/28/18 09:26 Dose: Not Given Azithromycin 500 mg/ Sodium (Chloride) 250 mls @ 250 mls/hr IVPB DAILY [facility]; Protocol Last Admin: 02/28/18 09:25 Dose: 250 mls/hr Ceftriaxone Sodium 1 gm/ (Sodium Chloride) 100 mls @ 100 mls/hr IVPB DAILY [facility]; Protocol Last Admin: 02/28/18 09:24 Dose: 100 mls/hr Methylprednisolone (Solu-Medrol) 40 mg IVP Q8H [facility] Last Admin: 02/28/18 13:23 Dose: 40 mg Morphine Sulfate (Morphine Extended Release Tab) 30 mg PO Q12 [facility] Last Admin: 02/28/18 11:42 Dose: 30 mg Oxycodone/Acetaminophen (Percocet 5/325 Mg Tab) 1 tab PO Q6H PRN PRN Reason: Pain, moderate (4-7) Stop: 03/01/18 18:29 Last Admin: 02/28/18 05:00 Dose: 1 tab - Labs Labs: 02/26/18 13:13 02/26/18 14:00 - Constitutional Appears: Well - Head Exam Head Exam: ATRAUMATIC, NORMAL INSPECTION, NORMOCEPHALIC - Eye Exam Eye Exam: EOMI, Normal appearance, PERRL Pupil Exam: NORMAL ACCOMODATION, PERRL - ENT Exam ENT Exam: Mucous Membranes Moist, Normal Exam - Neck Exam Neck Exam: Full ROM, Normal Inspection. absent: Lymphadenopathy - Respiratory Exam Respiratory Exam: Decreased Breath Sounds - Cardiovascular Exam Cardiovascular Exam: REGULAR RHYTHM, +S1, +S2 - GI/Abdominal Exam GI & Abdominal Exam: Soft, Diminished Bowel Sounds - Rectal Exam Rectal Exam: Deferred
--- NOTE | 2018-02-28 16:11 | CP.PCM.CON ---
<Jessika RomeroRonak - Last Filed: 02/28/18 16:34> History of Present Illness - History of Present Illness History of Present Illness: Consult note for bilateral lower extremity weakness for Dr. 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 She was recently in the hospital and just discharged on Wednesday, to then return again on that Wednesday. She has been experiencing lower back pain and weakness the day before , and then on , she was unable to walk or move her lower extremities. She admitted on 02/20/18 for bilateral leg weakness. Imaging was done and showed multiple levels of cord compression. Steroids were started with minimal improvement, and were then discontinued due to elevated glucose (in the 400s). The patient complains of paralysis in her lower extremities bilaterally, decreased sensation from her abdomen to her toes, and incontinence. Oncologist: Dr. 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 Review of Systems - Constitutional Constitutional: Malaise - Cardiovascular Cardiovascular: Dyspnea, Edema - Respiratory Respiratory: Dyspnea, Pain on Inspiration - Gastrointestinal Gastrointestinal: absent: Abdominal Pain, Nausea, Vomiting Additional comments: incontinent, unable to move bowels, decreased appetite, passing minimal flatus - Genitourinary Genitourinary: Urinary Incontinence - Musculoskeletal Musculoskeletal: Abnormal Gait, Back Pain, Numbness (no sensation in LE) - Neurological Neurological: absent: Abnormal Gait (unable to walk), Headaches - Psychiatric Psychiatric: Anxiety (chronic) Past Patient History - Past Medical History & Family History Past Medical History?: Yes - Past Social History Smoking Status: Former Smoker - CARDIAC Hx Hypertension: Yes - PULMONARY Hx Respiratory Disorders: Yes Other/Comment: Lung Ca Rt and Lt. - NEUROLOGICAL Hx Neurological Disorder: No - HEENT Hx HEENT Problems: No - RENAL Hx Chronic Kidney Disease: No - ENDOCRINE/METABOLIC Hx Hypothyroidism: Yes - HEMATOLOGICAL/ONCOLOGICAL Hx Blood Disorders: Yes Hx Cancer: Yes (lung) - INTEGUMENTARY Hx Dermatological Problems: No - MUSCULOSKELETAL/RHEUMATOLOGICAL Hx Arthritis: Yes - GASTROINTESTINAL Hx Gastrointestinal Disorders: No - GENITOURINARY/GYNECOLOGICAL Hx Genitourinary Disorders: No - PSYCHIATRIC Hx Substance Use: No - SURGICAL HISTORY Hx Cholecystectomy: Yes - ANESTHESIA Hx Anesthesia: Yes Hx Anesthesia Reactions: No Hx Malignant Hyperthermia: No Has any member of the family had a problem w/ anesthesia?: No Meds Allergies/Adverse Reactions: Allergies Allergy/AdvReac Type Severity Reaction Status Date / Time FISH Allergy Severe VOMITING Verified 02/26/18 12:43 iodine Allergy Severe VOMITING Verified 02/26/18 12:43 shellfish derived Allergy Verified 02/26/18 12:43 strawberry Allergy Verified 02/26/18 12:43 - Medications Medications: Current Medications Albuterol/Ipratropium (Duoneb 3 Mg/0.5 Mg (3 Ml) Ud) 3 ml INH RQ6 [facility] Last Admin: 02/28/18 13:46 Dose: Not Given Aspirin (Ecotrin) 81 mg PO QPM [facility] Last Admin: 02/27/18 17:16 Dose: 81 mg Docusate Sodium (Colace) 100 mg PO BID [facility] Last Admin: 02/28/18 11:41 Dose: 100 mg Doxycycline Hyclate (Doryx) 100 mg PO BID [facility]; Protocol Last Admin: 02/28/18 09:44 Dose: 100 mg Enoxaparin Sodium (Lovenox) 40 mg SC DAILY [facility] Last Admin: 02/28/18 09:23 Dose: 40 mg Ergocalciferol (Drisdol 50,000 Intl Units Cap) 1 cap PO QWK [facility] Home Med (Patient's Own Medication) 1 tab PO QPM [facility] Last Admin: 02/27/18 17:17 Dose: 1 tab Home Med (Patient's Own Medication) 1 tab PO QPM [facility] Last Admin: 02/27/18 17:17 Dose: 1 tab Home Med (Patient's Own Medication) 1 tab PO QPM [facility] Last Admin: 02/27/18 17:17 Dose: 1 tab Sodium Chloride (Sodium Chloride 0.9%) 1,000 mls @ 100 mls/hr IV .Q10H [facility] Last Admin: 02/28/18 09:26 Dose: Not Given Azithromycin 500 mg/ Sodium (Chloride) 250 mls @ 250 mls/hr IVPB DAILY [facility]; Protocol Last Admin: 02/28/18 09:25 Dose: 250 mls/hr Ceftriaxone Sodium 1 gm/ (Sodium Chloride) 100 mls @ 100 mls/hr IVPB DAILY [facility]; Protocol Last Admin: 02/28/18 09:24 Dose: 100 mls/hr Methylprednisolone (Solu-Medrol) 40 mg IVP Q8H [facility] Last Admin: 02/28/18 13:23 Dose: 40 mg Morphine Sulfate (Morphine Extended Release Tab) 30 mg PO Q12 [facility] Last Admin: 02/28/18 11:42 Dose: 30 mg Oxycodone/Acetaminophen (Percocet 5/325 Mg Tab) 1 tab PO Q6H PRN PRN Reason: Pain, moderate (4-7) Stop: 03/01/18 18:29 Last Admin: 02/28/18 05:00 Dose: 1 tab Physical Exam - Constitutional Appears: No Acute Distress - Head Exam Head Exam: NORMAL INSPECTION - Eye Exam Eye Exam: EOMI, Normal appearance - ENT Exam ENT Exam: Mucous Membranes Moist - Respiratory Exam Respiratory Exam: Decreased Breath Sounds, NORMAL BREATHING PATTERN. absent: Wheezes, Respiratory Distress - Cardiovascular Exam Cardiovascular Exam: REGULAR RHYTHM, +S1, +S2 - GI/Abdominal Exam GI & Abdominal Exam: Normal Bowel Sounds, Soft. absent: Tenderness - Rectal Exam Additional comments: No sphincter tone - Extremities Exam Extremities exam: Positive for: pedal edema (b/l). Negative for: full ROM (no ROM), normal inspection (no sensation b/l), pedal pulses present (diminished) - Neurological Exam Neurological exam: Alert, CN II-XII Intact, Motor Sensory Deficit (diminished sensation from T4 to T9, hypersensitive around t10, and no sensation below T10; no motor function of LE b/l), Oriented x3 - Psychiatric Exam Psychiatric exam: Anxious - Skin Skin Exam: Normal Color, Warm Results - Vital Signs Recent Vital Signs: Last Vital Signs Temp 97.7 F 02/28/18 15:00 Pulse 94 H 02/28/18 16:00 Resp 18 02/28/18 15:00 BP 136/82 02/28/18 15:00 Pulse Ox 96 02/28/18 15:00 - Labs Result Diagrams: 02/26/18 13:13 02/26/18 14:00 Labs: Laboratory Results - last 24 hr 02/26/18 02/27/18 15:53 21:30 POC Glucose (mg/dL) 83 126 H Assessment & Plan - Assessment and Plan (Free Text) Assessment: 72 year old female with a medical history of metastatic lung cancer to the bones, hypothyroidism, and DM, who presents with bilateral LE paralysis secondary to multiple level cord compression. Bilateral LE Paralysis - Secondary to metastatic lesions in spine and cord compression - Spinal canal, lumbar MRI (02/21/18): multiple metastatic lesions scattered throughout lower thoracic, lumbar, and sacral region; mild acute anterior wedge compression fracture of T11 segment with retropulsion of posterior cortex resulting in irregular compression of the ventral surface of the thecal sac and minimal flattening of the left anterolateral border of the lower thoracic spinal cord - Decadron 4mg PO Q8hr started on 02/28/18. Patient will need to monitor blood glucose TID and administer insulin as needed. - Continue PT/OT - Neurosurgery consulted, Dr. Cervantes. Recommendations appreciated. Metastatic Lung Cancer - Continue management per oncologist, Dr. Beltrán - Palliative care consulted to determine goals of care Thank you for this consult. Please reconsult as needed. Case discussed with Dr. David Herrera, PGY2 <Eric Hernandez - Last Filed: 03/02/18 17:06> Meds - Medications Medications: Current Medications Albuterol/Ipratropium (Duoneb 3 Mg/0.5 Mg (3 Ml) Ud) 3 ml INH RQ6 [facility] Last Admin: 03/02/18 14:00 Dose: Not Given Aspirin (Ecotrin) 81 mg PO QPM [facility] Last Admin: 03/01/18 18:01 Dose: 81 mg Dexamethasone (Decadron) 4 mg PO Q8H [facility] Last Admin: 03/02/18 13:28 Dose: 4 mg Docusate Sodium (Colace) 100 mg PO BID [facility] Last Admin: 03/02/18 09:44 Dose: 100 mg Doxycycline Hyclate (Doryx) 100 mg PO BID [facility]; Protocol Last Admin: 03/02/18 09:40 Dose: 100 mg Enoxaparin Sodium (Lovenox) 40 mg SC DAILY [facility] Last Admin: 03/02/18 09:41 Dose: 40 mg Ergocalciferol (Drisdol 50,000 Intl Units Cap) 1 cap PO QWK [facility] Home Med (Patient's Own Medication) 1 tab PO QPM [facility] Last Admin: 03/01/18 18:01 Dose: 1 tab Home Med (Patient's Own Medication) 1 tab PO QPM [facility] Last Admin: 03/01/18 18:01 Dose: 1 tab Home Med (Patient's Own Medication) 1 tab PO QPM [facility] Last Admin: 03/01/18 18:01 Dose: 1 tab Azithromycin 500 mg/ Sodium (Chloride) 250 mls @ 250 mls/hr IVPB DAILY [facility]; Protocol Last Admin: 03/02/18 11:38 Dose: 250 mls/hr Ceftriaxone Sodium 1 gm/ (Sodium Chloride) 100 mls @ 100 mls/hr IVPB DAILY [facility]; Protocol Last Admin: 03/02/18 09:41 Dose: 100 mls/hr Sodium Chloride (Sodium Chloride 0.9%) 1,000 mls @ 100 mls/hr IV .Q10H [facility] Last Admin: 03/02/18 08:57 Dose: 100 mls/hr Morphine Sulfate (Morphine Extended Release Tab) 30 mg PO Q12 [facility] Last Admin: 03/02/18 09:40 Dose: 30 mg Oxycodone/Acetaminophen (Percocet 5/325 Mg Tab) 1 tab PO Q6H PRN PRN Reason: Pain, moderate (4-7) Stop: 03/05/18 11:10 Last Admin: 03/02/18 11:36 Dose: 1 tab Pantoprazole Sodium (Protonix Ec Tab) 40 mg PO DAILY [facility] Last Admin: 03/02/18 09:40 Dose: 40 mg Results - Vital Signs Recent Vital Signs: Last Vital Signs Temp 97.4 F L 03/02/18 08:01 Pulse 84 03/02/18 08:01 Resp 20 03/02/18 08:01 BP 146/91 H 03/02/18 08:01 Pulse Ox 95 03/02/18 08:01 - Labs Result Diagrams: 02/26/18 13:13 02/26/18 14:00 Labs: Laboratory Results - last 24 hr 03/01/18 03/01/18 03/02/18 16:06 20:59 06:06 POC Glucose (mg/dL) 105 116 H 88 03/02/18 11:38 POC Glucose (mg/dL) 99 Attending/Attestation - Attestation I have personally seen and examined this patient.: Yes I have fully participated in the care of the patient.: Yes I have reviewed all pertinent clinical information: Yes Notes (Text): 03/02/18 17:06 I agree with the assessment and plan: - Decadron 4mg PO Q8hr started on 02/28/18. Patient will need to monitor blood glucose TID and administer insulin as needed. - Continue PT/OT - Neurosurgery consulted, Dr. Cervantes. Recommendations appreciated.
[2018-02-28] MEDS: FLUOXETINE 20 MG PO SCH (17:25)
[2018-02-28] MEDS: LEVOTHYROXINE 75 MCG PO SCH (17:25)
--- NOTE | 2018-02-28 17:42 | CP.PCM.CON ---
History of Present Illness - History of Present Illness History of Present Illness: Patient is a 72 year old female with a PMHx of bilateral lung cancer, Graves' disease, and HTN who presented on 02/26/18 with worsening shortness of breath and pain. Pulmonology was consulted for worsening SOB. Patient was re cently admitted to [facility] and discharged on 02/25/18. Patient has lung cancer widely metastatic to her bones. She had a spinal cord compression at T3 and T11 which affected her ambulation. She was sent home on 02/25/18 with home care but returned due to worsening SOB for the past 2-3 days. She also complains of chronic pain to her thoracic spine. Today, she denies any chest pain, fever, chills, dizziness, or productive cough. CXR (02/26/18): Persistent large left hilar/infrahilar mass extending into the lower lung zone. Suggestion of small bilateral pleural effusions. Venous congestion. Patchy consolidative changes at the lung bases. Biapical pleural thickening. Tortuous aorta and cardiomegaly. PMHx: bilateral lung cancer, Graves' disease, and HTN, Arthritis PSHx: Fluorscopy of gallbladder (09/22/16) Allergies: Fish, Iodine, Shellfish derived, [place] FHx: Mother had history of bipolar disorder Meds: Duoneb, Asa 81 mg, Azithromycin, Ceftriaxone, Colace 100 mg, Doxycycline, Lovenox 40 mg, Drisdol, Solu-Medrol, Morphine ER 30 mg, Percocet 1 tab, Social: Denies alcohol, tobacco, and illicit drug use. Review of Systems - Review of Systems All systems: reviewed and no additional remarkable complaints except (complaining of shortness of breath) Past Patient History - Past Medical History & Family History Past Medical History?: Yes - Past Social History Smoking Status: Former Smoker - CARDIAC Hx Hypertension: Yes - PULMONARY Hx Respiratory Disorders: Yes Other/Comment: Lung Ca Rt and Lt. - NEUROLOGICAL Hx Neurological Disorder: No - HEENT Hx HEENT Problems: No - RENAL Hx Chronic Kidney Disease: No - ENDOCRINE/METABOLIC Hx Hypothyroidism: Yes - HEMATOLOGICAL/ONCOLOGICAL Hx Blood Disorders: Yes Hx Cancer: Yes (lung) - INTEGUMENTARY Hx Dermatological Problems: No - MUSCULOSKELETAL/RHEUMATOLOGICAL Hx Arthritis: Yes - GASTROINTESTINAL Hx Gastrointestinal Disorders: No - GENITOURINARY/GYNECOLOGICAL Hx Genitourinary Disorders: No - PSYCHIATRIC Hx Substance Use: No - SURGICAL HISTORY Hx Cholecystectomy: Yes - ANESTHESIA Hx Anesthesia: Yes Hx Anesthesia Reactions: No Hx Malignant Hyperthermia: No Has any member of the family had a problem w/ anesthesia?: No Meds Allergies/Adverse Reactions: Allergies Allergy/AdvReac Type Severity Reaction Status Date / Time FISH Allergy Severe VOMITING Verified 02/26/18 12:43 iodine Allergy Severe VOMITING Verified 02/26/18 12:43 shellfish derived Allergy Verified 02/26/18 12:43 strawberry Allergy Verified 02/26/18 12:43 - Medications Medications: Current Medications Albuterol/Ipratropium (Duoneb 3 Mg/0.5 Mg (3 Ml) Ud) 3 ml INH RQ6 [facility] Last Admin: 02/28/18 13:46 Dose: Not Given Aspirin (Ecotrin) 81 mg PO QPM [facility] Last Admin: 02/28/18 17:24 Dose: 81 mg Dexamethasone (Decadron) 4 mg PO Q8H [facility] Docusate Sodium (Colace) 100 mg PO BID [facility] Last Admin: 02/28/18 17:23 Dose: 100 mg Doxycycline Hyclate (Doryx) 100 mg PO BID [facility]; Protocol Last Admin: 02/28/18 17:23 Dose: 100 mg Enoxaparin Sodium (Lovenox) 40 mg SC DAILY [facility] Last Admin: 02/28/18 09:23 Dose: 40 mg Ergocalciferol (Drisdol 50,000 Intl Units Cap) 1 cap PO QWK [facility] Home Med (Patient's Own Medication) 1 tab PO QPM [facility] Last Admin: 02/28/18 17:25 Dose: 1 tab Home Med (Patient's Own Medication) 1 tab PO QPM [facility] Last Admin: 02/28/18 17:25 Dose: 1 tab Home Med (Patient's Own Medication) 1 tab PO QPM [facility] Last Admin: 02/28/18 17:25 Dose: 1 tab Sodium Chloride (Sodium Chloride 0.9%) 1,000 mls @ 100 mls/hr IV .Q10H [facility] Last Admin: 02/28/18 17:32 Dose: Not Given Azithromycin 500 mg/ Sodium (Chloride) 250 mls @ 250 mls/hr IVPB DAILY [facility]; Protocol Last Admin: 02/28/18 09:25 Dose: 250 mls/hr Ceftriaxone Sodium 1 gm/ (Sodium Chloride) 100 mls @ 100 mls/hr IVPB DAILY [facility]; Protocol Last Admin: 02/28/18 09:24 Dose: 100 mls/hr Morphine Sulfate (Morphine Extended Release Tab) 30 mg PO Q12 [facility] Last Admin: 02/28/18 11:42 Dose: 30 mg Oxycodone/Acetaminophen (Percocet 5/325 Mg Tab) 1 tab PO Q6H PRN PRN Reason: Pain, moderate (4-7) Stop: 03/01/18 18:29 Last Admin: 02/28/18 05:00 Dose: 1 tab Pantoprazole Sodium (Protonix Ec Tab) 40 mg PO DAILY [facility] Physical Exam - Head Exam Head Exam: ATRAUMATIC, NORMOCEPHALIC - Eye Exam Eye Exam: Normal appearance - ENT Exam ENT Exam: Mucous Membranes Moist - Neck Exam Neck exam: Positive for: Normal Inspection - Respiratory Exam Respiratory Exam: Decreased Breath Sounds - Cardiovascular Exam Cardiovascular Exam: REGULAR RHYTHM - GI/Abdominal Exam GI & Abdominal Exam: Normal Bowel Sounds, Soft - Extremities Exam Extremities exam: Positive for: normal inspection Results - Vital Signs Recent Vital Signs: Last Vital Signs Temp 97.7 F 02/28/18 15:00 Pulse 94 H 02/28/18 16:00 Resp 18 02/28/18 15:00 BP 136/82 02/28/18 15:00 Pulse Ox 96 02/28/18 15:00 - Labs Result Diagrams: 02/26/18 13:13 02/26/18 14:00 Labs: Laboratory Results - last 24 hr 02/26/18 02/27/18 02/28/18 15:53 21:30 16:25 POC Glucose (mg/dL) 83 126 H 117 H Assessment & Plan (1) SOB (shortness of breath) Status: Acute Comment: secondary to lung cancer with airway obstruction. continue nebulizer treatment and steroids. 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
--- NOTE | 2018-02-28 17:49 | CP.PCM.PN ---
Subjective - Date & Time of Evaluation Date of Evaluation: 02/28/18 Time of Evaluation: 17:46 - Subjective Subjective: pt has been paraplegic since about Feb 17 On her admission we were consulted and then told that we were not to get involved as she was DNR and was set up for hospice. There is nothing surgical to do for this woman who has been paraplgic for almost 2 weeks who is DNR Objective - Vital Signs/Intake and Output Vital Signs (last 24 hours): Temp Pulse Resp BP Pulse Ox 97.7 F 94 H 18 136/82 96 02/28/18 15:00 02/28/18 16:00 02/28/18 15:00 02/28/18 15:00 02/28/18 15:00 Intake and Output: 02/28/18 02/28/18 06:59 18:59 Intake Total 1600 800 Output Total 800 700 Balance 800 100 - Medications Medications: Current Medications Albuterol/Ipratropium (Duoneb 3 Mg/0.5 Mg (3 Ml) Ud) 3 ml INH RQ6 [facility] Last Admin: 02/28/18 13:46 Dose: Not Given Aspirin (Ecotrin) 81 mg PO QPM [facility] Last Admin: 02/28/18 17:24 Dose: 81 mg Dexamethasone (Decadron) 4 mg PO Q8H [facility] Docusate Sodium (Colace) 100 mg PO BID [facility] Last Admin: 02/28/18 17:23 Dose: 100 mg Doxycycline Hyclate (Doryx) 100 mg PO BID [facility]; Protocol Last Admin: 02/28/18 17:23 Dose: 100 mg Enoxaparin Sodium (Lovenox) 40 mg SC DAILY [facility] Last Admin: 02/28/18 09:23 Dose: 40 mg Ergocalciferol (Drisdol 50,000 Intl Units Cap) 1 cap PO QWK [facility] Home Med (Patient's Own Medication) 1 tab PO QPM [facility] Last Admin: 02/28/18 17:25 Dose: 1 tab Home Med (Patient's Own Medication) 1 tab PO QPM [facility] Last Admin: 02/28/18 17:25 Dose: 1 tab Home Med (Patient's Own Medication) 1 tab PO QPM [facility] Last Admin: 02/28/18 17:25 Dose: 1 tab Sodium Chloride (Sodium Chloride 0.9%) 1,000 mls @ 100 mls/hr IV .Q10H [facility] Last Admin: 02/28/18 17:32 Dose: Not Given Azithromycin 500 mg/ Sodium (Chloride) 250 mls @ 250 mls/hr IVPB DAILY [facility]; Protocol Last Admin: 02/28/18 09:25 Dose: 250 mls/hr Ceftriaxone Sodium 1 gm/ (Sodium Chloride) 100 mls @ 100 mls/hr IVPB DAILY [facility]; Protocol Last Admin: 02/28/18 09:24 Dose: 100 mls/hr Morphine Sulfate (Morphine Extended Release Tab) 30 mg PO Q12 [facility] Last Admin: 02/28/18 11:42 Dose: 30 mg Oxycodone/Acetaminophen (Percocet 5/325 Mg Tab) 1 tab PO Q6H PRN PRN Reason: Pain, moderate (4-7) Stop: 03/01/18 18:29 Last Admin: 02/28/18 05:00 Dose: 1 tab Pantoprazole Sodium (Protonix Ec Tab) 40 mg PO DAILY [facility] - Labs Labs: 02/26/18 13:13 02/26/18 14:00
--- NOTE | 2018-02-28 18:43 | CON ---
DATE: 02/26/2018 ATTENDING PHYSICIAN: Ambar Chacon MD LOCATION: The patient is in room number 565, bed A. REASON FOR CONSULTATION: Upper back pain. CHIEF COMPLAINT: The patient was brought into [facility] for the worsening of her back pain. From neurological point of view, I was called in to evaluate her for further management. HISTORY OF PRESENT ILLNESS: Ms. Arielle Wright is an unfortunate 72-year-old right-handed female, who has been known to be diagnosed with lung cancer, had been treated recently, admitted a week ago in [facility], had been seen by oncologist as well as the neurologist, had been worked up for her problem of upper back pain, had been diagnosed with spinal cord compression from T3 and T11 region, had been treated symptomatically and she was sent home last Wednesday. The patient was brought into [facility] with her increasing shortness of breath. PAST MEDICAL HISTORY: As stated above. She had lung cancer and had been treated with radiation therapy. At present, she was not able to move her both lower extremities since weekend. She was not able to control her urine as well. She is complaining of low mid thoracic region band-like pain coming across her chest. She was not able to move her lower extremities. REVIEW OF SYSTEMS: The 12-point system being reviewed from neuro, worsening leg weakness. MEDICATIONS: Azithromycin, IV fluids, doxycycline, ____, aspirin, Lovenox, oxycodone. PHYSICAL EXAMINATION: VITAL SIGNS: Blood pressure 134/84, mean artery pressure of 100, respiratory rate 18, temperature afebrile. NECK: Supple. No carotid bruits. HEART: S1, S2 regular. EXTREMITIES: Both legs are externally rotated with no spontaneous movement noted. NEUROLOGIC EXAMINATION: Mental status examination: She is awake, alert, and oriented to person, place, and time. Her speech is clear. Naming, repetition, fluency, comprehension all within normal. Motor examination: Upper extremities: She was able to lift both upper extremities against gravity. From lower chest down, she does not have any feeling at all. She could not appreciate toe movements as well as ankle movement. Deep tendon reflexes are grossly absent. Plantars are mute on both sides. Coordination: Finger-nose test is intact in the both upper extremities. CONCLUSION: Ms. Arielle Wright is presenting with paraplegia all related to her metastatic process in the thoracic region, probably T11 region, manifesting with paraplegia and bladder incontinence. If medically stable as well as recommendation from oncologist, the patient can be tied with radiation therapy for thoracic region. If it was done, continue the current conservative management with deep venous thrombosis prophylaxis. Continue the present management as well as supportive care. Pain management can be optimized to keep her comfort level. The patient will be followed while she is in the hospital. Meng Ely MD
[2018-02-28 19:04] LABS: ABG ALLEN TEST YES; ARTERIAL BLOOD GAS HCO3 27.9 mmol/L (21-28); ARTERIAL BLOOD GAS HEMOGLOBIN 11.5 g/dL (11.7-17.4); ARTERIAL BLOOD GAS PCO2 49 mm/Hg (35-45); ARTERIAL BLOOD GAS PH 7.39 (7.35-7.45); ARTERIAL BLOOD GAS PO2 65 mm/Hg (80-100); ARTERIAL BLOOD GAS TCO2 31.2 mmol/L (22-28)
[2018-03-01] MEDS: Sodium Chloride 0.9% 1,000 ML IV SCH ×3 (00:48→13:10)
[2018-03-01] MEDS: Albuterol-Ipratrop 3 mg / 0.5 (3 ml) UD INH SCH ×5 (01:07→19:46)
[2018-03-01] MEDS: Oxycodone/Acetaminophen 5/325 mg Tab PO PRN (07:32)
[2018-03-01] MEDS: Enoxaparin 40 mg Syringe SC SCH (09:26)
[2018-03-01] MEDS: Pantoprazole 40 mg EC Tab PO SCH (09:28)
[2018-03-01] MEDS: Morphine 15 mg SR Tab PO SCH ×2 (09:29→22:37)
[2018-03-01] MEDS: Azithromycin 500 MG in Sodium Chloride 0.9% 250 ML IVPB SCH (10:29)
[2018-03-01 15:46] VITALS: RESP 20
--- NOTE | 2018-03-01 17:16 | CP.PCM.PN ---
Subjective - Date & Time of Evaluation Date of Evaluation: 03/01/18 Time of Evaluation: 08:15 - Subjective Subjective: clinically same Objective - Vital Signs/Intake and Output Vital Signs (last 24 hours): Temp Pulse Resp BP Pulse Ox 97.4 F L 86 20 152/90 H 97 03/01/18 15:00 03/01/18 15:00 03/01/18 15:00 03/01/18 15:00 03/01/18 15:00 Intake and Output: 03/01/18 03/01/18 06:59 18:59 Intake Total 800 Output Total 520 550 Balance 280 -550 - Medications Medications: Current Medications Albuterol/Ipratropium (Duoneb 3 Mg/0.5 Mg (3 Ml) Ud) 3 ml INH RQ6 [facility] Last Admin: 03/01/18 13:52 Dose: Not Given Aspirin (Ecotrin) 81 mg PO QPM [facility] Last Admin: 02/28/18 17:24 Dose: 81 mg Dexamethasone (Decadron) 4 mg PO Q8H [facility] Last Admin: 03/01/18 13:09 Dose: 4 mg Docusate Sodium (Colace) 100 mg PO BID [facility] Last Admin: 03/01/18 09:30 Dose: 100 mg Doxycycline Hyclate (Doryx) 100 mg PO BID [facility]; Protocol Last Admin: 03/01/18 09:27 Dose: 100 mg Enoxaparin Sodium (Lovenox) 40 mg SC DAILY [facility] Last Admin: 03/01/18 09:26 Dose: 40 mg Ergocalciferol (Drisdol 50,000 Intl Units Cap) 1 cap PO QWK [facility] Home Med (Patient's Own Medication) 1 tab PO QPM [facility] Last Admin: 02/28/18 17:25 Dose: 1 tab Home Med (Patient's Own Medication) 1 tab PO QPM [facility] Last Admin: 02/28/18 17:25 Dose: 1 tab Home Med (Patient's Own Medication) 1 tab PO QPM [facility] Last Admin: 02/28/18 17:25 Dose: 1 tab Azithromycin 500 mg/ Sodium (Chloride) 250 mls @ 250 mls/hr IVPB DAILY [facility]; Protocol Last Admin: 03/01/18 10:29 Dose: 250 mls/hr Ceftriaxone Sodium 1 gm/ (Sodium Chloride) 100 mls @ 100 mls/hr IVPB DAILY [facility]; Protocol Last Admin: 03/01/18 12:00 Dose: 100 mls/hr Morphine Sulfate (Morphine Extended Release Tab) 30 mg PO Q12 [facility] Last Admin: 03/01/18 09:29 Dose: 30 mg Oxycodone/Acetaminophen (Percocet 5/325 Mg Tab) 1 tab PO Q6H PRN PRN Reason: Pain, moderate (4-7) Stop: 03/01/18 18:29 Last Admin: 03/01/18 07:32 Dose: 1 tab Pantoprazole Sodium (Protonix Ec Tab) 40 mg PO DAILY [facility] Last Admin: 03/01/18 09:28 Dose: 40 mg - Labs Labs: 02/26/18 13:13 02/26/18 14:00 - Constitutional Appears: Well - Head Exam Head Exam: ATRAUMATIC, NORMAL INSPECTION, NORMOCEPHALIC - Eye Exam Eye Exam: EOMI, Normal appearance, PERRL Pupil Exam: NORMAL ACCOMODATION, PERRL - ENT Exam ENT Exam: Mucous Membranes Moist, Normal Exam - Neck Exam Neck Exam: Full ROM, Normal Inspection. absent: Lymphadenopathy - Respiratory Exam Respiratory Exam: Decreased Breath Sounds - Cardiovascular Exam Cardiovascular Exam: REGULAR RHYTHM, +S1, +S2 - GI/Abdominal Exam GI & Abdominal Exam: Soft, Diminished Bowel Sounds - Rectal Exam Rectal Exam: Deferred
--- NOTE | 2018-03-01 17:45 | CP.PCM.PN ---
Subjective - Date & Time of Evaluation Date of Evaluation: 03/01/18 Time of Evaluation: 13:10 - Subjective Subjective: Patient seen and examined at bedside, lying down comfortably. Afebrile and in no acute distress. Denies SOB, cough, chest pain, fever/chills Patient does report constipation Palliative Care saw patient (02/28/18) and discussed with patient the benefits of Hospice. Patient and son disagreed and will like to continue with chemotherapy and do not want skilled nursing placement. Objective - Vital Signs/Intake and Output Vital Signs (last 24 hours): Temp Pulse Resp BP Pulse Ox 97.4 F L 86 20 152/90 H 97 03/01/18 15:00 03/01/18 15:00 03/01/18 15:00 03/01/18 15:00 03/01/18 15:00 Intake and Output: 03/01/18 03/01/18 06:59 18:59 Intake Total 800 Output Total 520 550 Balance 280 -550 - Medications Medications: Current Medications Albuterol/Ipratropium (Duoneb 3 Mg/0.5 Mg (3 Ml) Ud) 3 ml INH RQ6 [facility] Last Admin: 03/01/18 13:52 Dose: Not Given Aspirin (Ecotrin) 81 mg PO QPM [facility] Last Admin: 02/28/18 17:24 Dose: 81 mg Dexamethasone (Decadron) 4 mg PO Q8H [facility] Last Admin: 03/01/18 13:09 Dose: 4 mg Docusate Sodium (Colace) 100 mg PO BID [facility] Last Admin: 03/01/18 09:30 Dose: 100 mg Doxycycline Hyclate (Doryx) 100 mg PO BID [facility]; Protocol Last Admin: 03/01/18 09:27 Dose: 100 mg Enoxaparin Sodium (Lovenox) 40 mg SC DAILY [facility] Last Admin: 03/01/18 09:26 Dose: 40 mg Ergocalciferol (Drisdol 50,000 Intl Units Cap) 1 cap PO QWK [facility] Home Med (Patient's Own Medication) 1 tab PO QPM [facility] Last Admin: 02/28/18 17:25 Dose: 1 tab Home Med (Patient's Own Medication) 1 tab PO QPM [facility] Last Admin: 02/28/18 17:25 Dose: 1 tab Home Med (Patient's Own Medication) 1 tab PO QPM [facility] Last Admin: 02/28/18 17:25 Dose: 1 tab Azithromycin 500 mg/ Sodium (Chloride) 250 mls @ 250 mls/hr IVPB DAILY [facility]; Protocol Last Admin: 03/01/18 10:29 Dose: 250 mls/hr Ceftriaxone Sodium 1 gm/ (Sodium Chloride) 100 mls @ 100 mls/hr IVPB DAILY [facility]; Protocol Last Admin: 03/01/18 12:00 Dose: 100 mls/hr Morphine Sulfate (Morphine Extended Release Tab) 30 mg PO Q12 [facility] Last Admin: 03/01/18 09:29 Dose: 30 mg Oxycodone/Acetaminophen (Percocet 5/325 Mg Tab) 1 tab PO Q6H PRN PRN Reason: Pain, moderate (4-7) Stop: 03/01/18 18:29 Last Admin: 03/01/18 07:32 Dose: 1 tab Pantoprazole Sodium (Protonix Ec Tab) 40 mg PO DAILY [facility] Last Admin: 03/01/18 09:28 Dose: 40 mg - Labs Labs: 02/26/18 13:13 02/26/18 14:00 Assessment and Plan (1) SOB (shortness of breath) Status: Acute (2) Hyponatremia Status: Acute (3) Lung cancer Status: Acute
[2018-03-01] MEDS: LEVOTHYROXINE 75 MCG PO SCH (18:01)
[2018-03-01] MEDS: FLUOXETINE 20 MG PO SCH (18:01)
--- NOTE | 2018-03-01 19:07 | CARD ---
APPROVED REPORT Date of service: 02/26/2018 EKG Measurement Heart [id number] <Conclusion> Sinus rhythm with short SC Possible Left atrial enlargement Cannot rule out Anterior infarct, age undetermined Abnormal ECG
[2018-03-02] MEDS: Albuterol-Ipratrop 3 mg / 0.5 (3 ml) UD INH SCH ×4 (01:59→20:36)
[2018-03-02] MEDS: Sodium Chloride 0.9% 1,000 ML IV SCH ×2 (08:57→18:25)
[2018-03-02] MEDS: Pantoprazole 40 mg EC Tab PO SCH (09:40)
[2018-03-02] MEDS: Morphine 15 mg SR Tab PO SCH ×2 (09:40→21:49)
[2018-03-02] MEDS: Enoxaparin 40 mg Syringe SC SCH (09:41)
[2018-03-02] MEDS ORDERED: Oxycodone/Acetaminophen 5/325 mg Tab PO PRN (11:09)
[2018-03-02] MEDS: Azithromycin 500 MG in Sodium Chloride 0.9% 250 ML IVPB SCH (11:38)
--- NOTE | 2018-03-02 14:00 | CP.PCM.PN ---
Subjective - Date & Time of Evaluation Date of Evaluation: 03/02/18 Time of Evaluation: 13:57 - Subjective Subjective: Patient seen in bed, alert, oriented X 3 in no acute distress. patient is holding wet cloth over forehead, saying it helps her with anxiety. Patient reports good relief from pain. Still unable to move lower extremities. Incontinent of urine. No BM yet. Doctor Emy Chacon asked me to revisit goals of care discussion with patient;s son. Objective - Vital Signs/Intake and Output Vital Signs (last 24 hours): Temp Pulse Resp BP Pulse Ox 97.4 F L 84 20 146/91 H 95 03/02/18 08:01 03/02/18 08:01 03/02/18 08:01 03/02/18 08:01 03/02/18 08:01 Intake and Output: 03/02/18 03/02/18 06:59 18:59 Intake Total 920 Output Total 850 Balance 70 - Medications Medications: Current Medications Albuterol/Ipratropium (Duoneb 3 Mg/0.5 Mg (3 Ml) Ud) 3 ml INH RQ6 [facility] Last Admin: 03/02/18 08:40 Dose: Not Given Aspirin (Ecotrin) 81 mg PO QPM [facility] Last Admin: 03/01/18 18:01 Dose: 81 mg Dexamethasone (Decadron) 4 mg PO Q8H [facility] Last Admin: 03/02/18 13:28 Dose: 4 mg Docusate Sodium (Colace) 100 mg PO BID [facility] Last Admin: 03/02/18 09:44 Dose: 100 mg Doxycycline Hyclate (Doryx) 100 mg PO BID [facility]; Protocol Last Admin: 03/02/18 09:40 Dose: 100 mg Enoxaparin Sodium (Lovenox) 40 mg SC DAILY [facility] Last Admin: 03/02/18 09:41 Dose: 40 mg Ergocalciferol (Drisdol 50,000 Intl Units Cap) 1 cap PO QWK [facility] Home Med (Patient's Own Medication) 1 tab PO QPM [facility] Last Admin: 03/01/18 18:01 Dose: 1 tab Home Med (Patient's Own Medication) 1 tab PO QPM [facility] Last Admin: 03/01/18 18:01 Dose: 1 tab Home Med (Patient's Own Medication) 1 tab PO QPM [facility] Last Admin: 03/01/18 18:01 Dose: 1 tab Azithromycin 500 mg/ Sodium (Chloride) 250 mls @ 250 mls/hr IVPB DAILY [facility]; Protocol Last Admin: 03/02/18 11:38 Dose: 250 mls/hr Ceftriaxone Sodium 1 gm/ (Sodium Chloride) 100 mls @ 100 mls/hr IVPB DAILY [facility]; Protocol Last Admin: 03/02/18 09:41 Dose: 100 mls/hr Sodium Chloride (Sodium Chloride 0.9%) 1,000 mls @ 100 mls/hr IV .Q10H [facility] Last Admin: 03/02/18 08:57 Dose: 100 mls/hr Morphine Sulfate (Morphine Extended Release Tab) 30 mg PO Q12 [facility] Last Admin: 03/02/18 09:40 Dose: 30 mg Oxycodone/Acetaminophen (Percocet 5/325 Mg Tab) 1 tab PO Q6H PRN PRN Reason: Pain, moderate (4-7) Stop: 03/05/18 11:10 Last Admin: 03/02/18 11:36 Dose: 1 tab Pantoprazole Sodium (Protonix Ec Tab) 40 mg PO DAILY [facility] Last Admin: 03/02/18 09:40 Dose: 40 mg - Labs Labs: 02/26/18 13:13 02/26/18 14:00 - Constitutional Appears: No Acute Distress, Chronically Ill - Head Exam Head Exam: ATRAUMATIC, NORMAL INSPECTION, NORMOCEPHALIC - Eye Exam Eye Exam: EOMI, Normal appearance, PERRL Pupil Exam: NORMAL ACCOMODATION, PERRL - ENT Exam ENT Exam: Mucous Membranes Moist, Normal Exam - Neck Exam Neck Exam: Full ROM, Normal Inspection - Respiratory Exam Respiratory Exam: Decreased Breath Sounds, NORMAL BREATHING PATTERN - Cardiovascular Exam Cardiovascular Exam: Tachycardia - GI/Abdominal Exam GI & Abdominal Exam: Soft, Hypoactive Bowel Sounds - Rectal Exam Rectal Exam: Deferred - Extremities Exam Additional comments: unable to move LEs - Back Exam Back Exam: NORMAL INSPECTION - Neurological Exam Neurological Exam: Alert, Oriented x3 Neuro motor strength exam: Left Upper Extremity: 2/1, Right Upper Extremity: 2/1, Left Lower Extremity: 0, Right Lower Extremity: 0 - Psychiatric Exam Psychiatric exam: Anxious - Skin Skin Exam: Dry, Intact, Normal Color, Warm Assessment and Plan - Assessment and Plan (Free Text) Assessment: Patient examined in bed in no acute distress. Patient reports relief from pain with MS Contin. Patient stated she just had a panic attack and wet cloth over her forehead helped to keep her calm. Breathing is diminished with regular RR. Abdomen softly distended. No BM still. Unable to move LEs. On bed rest. Doctor Emy Chacon asked me to fallow up with Doctor Hernandez's group regarding recommendations from neuro point of view. I spoke to Verena CARINA whosaid that radiation was recommended but family did not agre with it. The group signed off on this patient. I spoke to patient's son Matti over the phone. Once again I made sure the son understands his mother's diagnosis. He stated being aware of lung cancer stage IV and mets to the bones. Matti claims that he did not hear word " Terminal condition " in discussing his mother's condition with Medical Care provides. Therefore, he is supporting continuation of chemo Tx. I offered my concerns regarding patient's quality of life. The son does not think his mother is suffering. He also stated that if Medical team tells him that his mother " was terminal " , he would consider hospice care. Impression * Chronically ill lady with metastatic cancer * Patient is fully dependent of assistance with care * Unable to move LEs * Incontinent of urine * At risk for pressure sore due to immobility and prolonged bed rest * Constipation due to immobility and pain meds use * Patient and family are hoping for cure and requesting continuation of chemo therapy. * Patient's son who advocates for her does not think his mother is terminal and if she was, he wants to be told it Suggestions * Assist with care * promote skin integrity, turn and position Q 2 hr * Continue current pain meds * Aggressive bowel regimen with Lactulose until BM * Discuss prognosis with patient and family * The son is open for Hospice if his mother 's condition is seen " as terminal" I will continue to fallow with this patient. Advance care discussion 35 min
--- NOTE | 2018-03-02 16:33 | CP.PCM.PN ---
Subjective - Date & Time of Evaluation Date of Evaluation: 03/02/18 Time of Evaluation: 13:00 - Subjective Subjective: Patient seen and examined at bedside, lying down comfortably. Afebrile and in no acute distress. Denies SOB, cough, chest pain, fever. + Constipation. Son is reportedly getting power of title attorney. Objective - Vital Signs/Intake and Output Vital Signs (last 24 hours): Temp Pulse Resp BP Pulse Ox 97.4 F L 84 20 146/91 H 95 03/02/18 08:01 03/02/18 08:01 03/02/18 08:01 03/02/18 08:01 03/02/18 08:01 Intake and Output: 03/02/18 03/02/18 06:59 18:59 Intake Total 920 Output Total 850 Balance 70 - Medications Medications: Current Medications Albuterol/Ipratropium (Duoneb 3 Mg/0.5 Mg (3 Ml) Ud) 3 ml INH RQ6 [facility] Last Admin: 03/02/18 14:00 Dose: Not Given Aspirin (Ecotrin) 81 mg PO QPM [facility] Last Admin: 03/01/18 18:01 Dose: 81 mg Dexamethasone (Decadron) 4 mg PO Q8H [facility] Last Admin: 03/02/18 13:28 Dose: 4 mg Docusate Sodium (Colace) 100 mg PO BID [facility] Last Admin: 03/02/18 09:44 Dose: 100 mg Doxycycline Hyclate (Doryx) 100 mg PO BID [facility]; Protocol Last Admin: 03/02/18 09:40 Dose: 100 mg Enoxaparin Sodium (Lovenox) 40 mg SC DAILY [facility] Last Admin: 03/02/18 09:41 Dose: 40 mg Ergocalciferol (Drisdol 50,000 Intl Units Cap) 1 cap PO QWK [facility] Home Med (Patient's Own Medication) 1 tab PO QPM [facility] Last Admin: 03/01/18 18:01 Dose: 1 tab Home Med (Patient's Own Medication) 1 tab PO QPM [facility] Last Admin: 03/01/18 18:01 Dose: 1 tab Home Med (Patient's Own Medication) 1 tab PO QPM [facility] Last Admin: 03/01/18 18:01 Dose: 1 tab Azithromycin 500 mg/ Sodium (Chloride) 250 mls @ 250 mls/hr IVPB DAILY [facility]; Protocol Last Admin: 03/02/18 11:38 Dose: 250 mls/hr Ceftriaxone Sodium 1 gm/ (Sodium Chloride) 100 mls @ 100 mls/hr IVPB DAILY [facility]; Protocol Last Admin: 03/02/18 09:41 Dose: 100 mls/hr Sodium Chloride (Sodium Chloride 0.9%) 1,000 mls @ 100 mls/hr IV .Q10H [facility] Last Admin: 03/02/18 08:57 Dose: 100 mls/hr Morphine Sulfate (Morphine Extended Release Tab) 30 mg PO Q12 [facility] Last Admin: 03/02/18 09:40 Dose: 30 mg Oxycodone/Acetaminophen (Percocet 5/325 Mg Tab) 1 tab PO Q6H PRN PRN Reason: Pain, moderate (4-7) Stop: 03/05/18 11:10 Last Admin: 03/02/18 11:36 Dose: 1 tab Pantoprazole Sodium (Protonix Ec Tab) 40 mg PO DAILY [facility] Last Admin: 03/02/18 09:40 Dose: 40 mg - Labs Labs: 02/26/18 13:13 02/26/18 14:00 - Head Exam Head Exam: ATRAUMATIC, NORMOCEPHALIC - ENT Exam ENT Exam: Mucous Membranes Moist - Neck Exam Neck Exam: Normal Inspection - Respiratory Exam Respiratory Exam: Decreased Breath Sounds - Cardiovascular Exam Cardiovascular Exam: REGULAR RHYTHM - GI/Abdominal Exam GI & Abdominal Exam: Soft, Normal Bowel Sounds Assessment and Plan (1) SOB (shortness of breath) Assessment & Plan: continue nebulizer treatment Clinically much improved Continue antibiotics Follow-up chest x-ray Status: Acute (2) Hyponatremia Status: Acute (3) Lung cancer Status: Acute
[2018-03-02] MEDS: FLUOXETINE 20 MG PO SCH (18:25)
[2018-03-02] MEDS: LEVOTHYROXINE 75 MCG PO SCH (18:25)
--- NOTE | 2018-03-02 18:51 | CP.PCM.PN ---
Subjective - Date & Time of Evaluation Date of Evaluation: 03/02/18 Time of Evaluation: 08:45 - Subjective Subjective: clinically same Objective - Vital Signs/Intake and Output Vital Signs (last 24 hours): Temp Pulse Resp BP Pulse Ox 97.6 F 92 H 20 115/55 L 98 03/02/18 16:00 03/02/18 16:00 03/02/18 16:00 03/02/18 16:00 03/02/18 16:00 Intake and Output: 03/02/18 03/02/18 06:59 18:59 Intake Total 920 400 Output Total 850 350 Balance 70 50 - Medications Medications: Current Medications Albuterol/Ipratropium (Duoneb 3 Mg/0.5 Mg (3 Ml) Ud) 3 ml INH RQ6 [facility] Last Admin: 03/02/18 14:00 Dose: Not Given Aspirin (Ecotrin) 81 mg PO QPM [facility] Last Admin: 03/02/18 18:24 Dose: 81 mg Dexamethasone (Decadron) 4 mg PO Q8H [facility] Last Admin: 03/02/18 13:28 Dose: 4 mg Docusate Sodium (Colace) 100 mg PO BID [facility] Last Admin: 03/02/18 18:25 Dose: 100 mg Doxycycline Hyclate (Doryx) 100 mg PO BID [facility]; Protocol Last Admin: 03/02/18 18:24 Dose: 100 mg Enoxaparin Sodium (Lovenox) 40 mg SC DAILY [facility] Last Admin: 03/02/18 09:41 Dose: 40 mg Ergocalciferol (Drisdol 50,000 Intl Units Cap) 1 cap PO QWK [facility] Home Med (Patient's Own Medication) 1 tab PO QPM [facility] Last Admin: 03/02/18 18:25 Dose: 1 tab Home Med (Patient's Own Medication) 1 tab PO QPM [facility] Last Admin: 03/02/18 18:25 Dose: 1 tab Home Med (Patient's Own Medication) 1 tab PO QPM [facility] Last Admin: 03/02/18 18:25 Dose: 1 tab Azithromycin 500 mg/ Sodium (Chloride) 250 mls @ 250 mls/hr IVPB DAILY [facility]; Protocol Last Admin: 03/02/18 11:38 Dose: 250 mls/hr Ceftriaxone Sodium 1 gm/ (Sodium Chloride) 100 mls @ 100 mls/hr IVPB DAILY [facility]; Protocol Last Admin: 03/02/18 09:41 Dose: 100 mls/hr Sodium Chloride (Sodium Chloride 0.9%) 1,000 mls @ 100 mls/hr IV .Q10H [facility] Last Admin: 03/02/18 18:25 Dose: 100 mls/hr Morphine Sulfate (Morphine Extended Release Tab) 30 mg PO Q12 [facility] Last Admin: 03/02/18 09:40 Dose: 30 mg Oxycodone/Acetaminophen (Percocet 5/325 Mg Tab) 1 tab PO Q6H PRN PRN Reason: Pain, moderate (4-7) Stop: 03/05/18 11:10 Last Admin: 03/02/18 11:36 Dose: 1 tab Pantoprazole Sodium (Protonix Ec Tab) 40 mg PO DAILY [facility] Last Admin: 03/02/18 09:40 Dose: 40 mg - Labs Labs: 02/26/18 13:13 02/26/18 14:00 - Constitutional Appears: Well - Head Exam Head Exam: ATRAUMATIC, NORMAL INSPECTION, NORMOCEPHALIC - Eye Exam Eye Exam: EOMI, Normal appearance, PERRL Pupil Exam: NORMAL ACCOMODATION, PERRL - ENT Exam ENT Exam: Mucous Membranes Moist, Normal Exam - Neck Exam Neck Exam: Full ROM, Normal Inspection. absent: Lymphadenopathy - Respiratory Exam Respiratory Exam: Decreased Breath Sounds - Cardiovascular Exam Cardiovascular Exam: REGULAR RHYTHM, +S1, +S2 - GI/Abdominal Exam GI & Abdominal Exam: Soft, Diminished Bowel Sounds - Rectal Exam Rectal Exam: Deferred
[2018-03-03] MEDS: Albuterol-Ipratrop 3 mg / 0.5 (3 ml) UD INH SCH ×4 (01:33→14:50)
--- NOTE | 2018-03-03 06:23 | PN ---
DATE: 03/02/2018 FOLLOWUP CONSULTATION This is a 72-year-old woman with lung cancer, widely metastatic to her bones and to her lungs, lymph notes and spinal cord compression. Her medications include azithromycin IV, ceftriaxone IV. She is on Decadron 4 mg every eight hours. She is on her lungs. She is on aspirin. She is on Lovenox, and she gets Morphine and Percocet 5 every six hours p.r.n. Her laboratory tests show the hemoglobins were up 3 now, and the last on 02/26/2018, her glucose is 447 that has been down to 96. The patient was seen by Neurology, and she has reasonably good pain medications. The issue is going to be discharge planning, she still wants to be . She was seen also by Dr. Cervantes for surgery, and that they agree that she should not be put on any kind of surgery. So at present, this is symptom controlled. I spoke to her several times about hospice. She is not ready for that, although she right now, and I think we will do this once she is home, we can always contact her whether she still wants that immunotherapy at all. So for now, discharge management. Joni Beltrán MD
[2018-03-03 08:02] VITALS: TEMP 97.5
[2018-03-03] MEDS: Enoxaparin 40 mg Syringe SC SCH (10:20)
[2018-03-03] MEDS: Morphine 15 mg SR Tab PO SCH (10:20)
[2018-03-03] MEDS: Pantoprazole 40 mg EC Tab PO SCH (10:20)
[2018-03-03] MEDS: Sodium Chloride 0.9% 1,000 ML IV SCH ×2 (10:21→15:00)
[2018-03-03] MEDS: Azithromycin 500 MG in Sodium Chloride 0.9% 250 ML IVPB SCH (10:27)
--- NOTE | 2018-03-03 11:50 | CP.PCM.PN ---
Subjective - Date & Time of Evaluation Date of Evaluation: 03/03/18 Time of Evaluation: 11:47 - Subjective Subjective: Patient alert, oriented X 3 , resting in bed in no acute distress. Pain is controlled. Son at bed side. per son, he spoke to Doctor Leigh Ann this morning and agreed with Hospice care at home. I was called by the floor nurse to assist in process of Hospice referral. Objective - Vital Signs/Intake and Output Vital Signs (last 24 hours): Temp Pulse Resp BP Pulse Ox 97.5 F L 88 20 129/82 96 03/03/18 07:30 03/03/18 07:30 03/03/18 07:30 03/03/18 07:30 03/03/18 07:30 Intake and Output: 03/03/18 03/03/18 06:59 18:59 Output Total 350 Balance -350 - Medications Medications: Current Medications Albuterol/Ipratropium (Duoneb 3 Mg/0.5 Mg (3 Ml) Ud) 3 ml INH RQ6 [facility] Last Admin: 03/03/18 07:50 Dose: 3 ml Aspirin (Ecotrin) 81 mg PO QPM [facility] Last Admin: 03/02/18 18:24 Dose: 81 mg Dexamethasone (Decadron) 4 mg PO Q8H [facility] Last Admin: 03/03/18 05:46 Dose: 4 mg Docusate Sodium (Colace) 100 mg PO BID [facility] Last Admin: 03/03/18 10:20 Dose: 100 mg Doxycycline Hyclate (Doryx) 100 mg PO BID [facility]; Protocol Last Admin: 03/03/18 10:20 Dose: 100 mg Enoxaparin Sodium (Lovenox) 40 mg SC DAILY [facility] Last Admin: 03/03/18 10:20 Dose: 40 mg Ergocalciferol (Drisdol 50,000 Intl Units Cap) 1 cap PO QWK [facility] Home Med (Patient's Own Medication) 1 tab PO QPM [facility] Last Admin: 03/02/18 18:25 Dose: 1 tab Home Med (Patient's Own Medication) 1 tab PO QPM [facility] Last Admin: 03/02/18 18:25 Dose: 1 tab Home Med (Patient's Own Medication) 1 tab PO QPM [facility] Last Admin: 03/02/18 18:25 Dose: 1 tab Azithromycin 500 mg/ Sodium (Chloride) 250 mls @ 250 mls/hr IVPB DAILY [facility]; Protocol Last Admin: 03/03/18 10:27 Dose: 250 mls/hr Ceftriaxone Sodium 1 gm/ (Sodium Chloride) 100 mls @ 100 mls/hr IVPB DAILY [facility]; Protocol Last Admin: 03/03/18 10:25 Dose: 100 mls/hr Sodium Chloride (Sodium Chloride 0.9%) 1,000 mls @ 100 mls/hr IV .Q10H [facility] Last Admin: 03/03/18 10:21 Dose: 100 mls/hr Morphine Sulfate (Morphine Extended Release Tab) 30 mg PO Q12 [facility] Last Admin: 03/03/18 10:20 Dose: 30 mg Oxycodone/Acetaminophen (Percocet 5/325 Mg Tab) 1 tab PO Q6H PRN PRN Reason: Pain, moderate (4-7) Stop: 03/05/18 11:10 Last Admin: 03/02/18 11:36 Dose: 1 tab Pantoprazole Sodium (Protonix Ec Tab) 40 mg PO DAILY [facility] Last Admin: 03/03/18 10:20 Dose: 40 mg - Labs Labs: 02/26/18 13:13 02/26/18 14:00 - Constitutional Appears: Chronically Ill - Head Exam Head Exam: ATRAUMATIC, NORMAL INSPECTION, NORMOCEPHALIC - Eye Exam Eye Exam: EOMI, Normal appearance, PERRL Pupil Exam: NORMAL ACCOMODATION, PERRL - ENT Exam ENT Exam: Mucous Membranes Moist, Normal Exam - Neck Exam Neck Exam: Full ROM, Normal Inspection - Respiratory Exam Respiratory Exam: Decreased Breath Sounds - Cardiovascular Exam Cardiovascular Exam: Tachycardia - GI/Abdominal Exam GI & Abdominal Exam: Hypoactive Bowel Sounds - Rectal Exam Rectal Exam: Deferred - Extremities Exam Additional comments: Paralyzed from waist down - Neurological Exam Neurological Exam: Alert, Oriented x3 Neuro motor strength exam: Left Upper Extremity: 2/1, Right Upper Extremity: 2/1, Left Lower Extremity: 0, Right Lower Extremity: 0 - Psychiatric Exam Psychiatric exam: Anxious - Skin Skin Exam: Dry, Intact, Pallor Assessment and Plan - Assessment and Plan (Free Text) Assessment: Patient examined in bed. Reynaldo Chino at bed side. Patient is not in acute distress. Pain is controlled. Still unable to move LEs. The son said he had conversation with Doctor Beltrán and " Doctor Beltrán pulled the trigger" on terminal prognosis. The son admitted being at ease now to decide on Hospice care as he feels he had explored all options. I offered more information about hospice care. The son wanted in home hospice. [facility] was called by . I made Doctor Oswaldo aware of. Impression * Stage IV metastatic cancer * Pain cancer related * No further aggressive interventions advised as prognosis seen as terminal * Patient and her son agreed with Home hospice Suggestion * Agree with Hospice care at home * Continue pain management * Pleasure food * Promote skin integrity Advance care planing 30 min Palliative care will sign off at this time. Thank you for consulting Palliative Care
--- NOTE | 2018-03-03 15:48 | CP.PCM.PN ---
Subjective - Date & Time of Evaluation Date of Evaluation: 03/03/18 Time of Evaluation: 09:45 - Subjective Subjective: clinically same Objective - Vital Signs/Intake and Output Vital Signs (last 24 hours): Temp Pulse Resp BP Pulse Ox 97.5 F L 88 20 129/82 96 03/03/18 07:30 03/03/18 07:30 03/03/18 07:30 03/03/18 07:30 03/03/18 07:30 Intake and Output: 03/03/18 03/03/18 06:59 18:59 Output Total 350 600 Balance -350 -600 - Medications Medications: Current Medications Albuterol/Ipratropium (Duoneb 3 Mg/0.5 Mg (3 Ml) Ud) 3 ml INH RQ6 [facility] Last Admin: 03/03/18 07:50 Dose: 3 ml Aspirin (Ecotrin) 81 mg PO QPM [facility] Last Admin: 03/02/18 18:24 Dose: 81 mg Dexamethasone (Decadron) 4 mg PO Q8H [facility] Last Admin: 03/03/18 13:44 Dose: 4 mg Docusate Sodium (Colace) 100 mg PO BID [facility] Last Admin: 03/03/18 10:20 Dose: 100 mg Doxycycline Hyclate (Doryx) 100 mg PO BID [facility]; Protocol Last Admin: 03/03/18 10:20 Dose: 100 mg Enoxaparin Sodium (Lovenox) 40 mg SC DAILY [facility] Last Admin: 03/03/18 10:20 Dose: 40 mg Ergocalciferol (Drisdol 50,000 Intl Units Cap) 1 cap PO QWK [facility] Home Med (Patient's Own Medication) 1 tab PO QPM [facility] Last Admin: 03/02/18 18:25 Dose: 1 tab Home Med (Patient's Own Medication) 1 tab PO QPM [facility] Last Admin: 03/02/18 18:25 Dose: 1 tab Home Med (Patient's Own Medication) 1 tab PO QPM [facility] Last Admin: 03/02/18 18:25 Dose: 1 tab Azithromycin 500 mg/ Sodium (Chloride) 250 mls @ 250 mls/hr IVPB DAILY [facility]; Protocol Last Admin: 03/03/18 10:27 Dose: 250 mls/hr Ceftriaxone Sodium 1 gm/ (Sodium Chloride) 100 mls @ 100 mls/hr IVPB DAILY [facility]; Protocol Last Admin: 03/03/18 10:25 Dose: 100 mls/hr Sodium Chloride (Sodium Chloride 0.9%) 1,000 mls @ 100 mls/hr IV .Q10H [facility] Last Admin: 03/03/18 10:21 Dose: 100 mls/hr Morphine Sulfate (Morphine Extended Release Tab) 30 mg PO Q12 [facility] Last Admin: 03/03/18 10:20 Dose: 30 mg Oxycodone/Acetaminophen (Percocet 5/325 Mg Tab) 1 tab PO Q6H PRN PRN Reason: Pain, moderate (4-7) Stop: 03/05/18 11:10 Last Admin: 03/02/18 11:36 Dose: 1 tab Pantoprazole Sodium (Protonix Ec Tab) 40 mg PO DAILY [facility] Last Admin: 03/03/18 10:20 Dose: 40 mg - Labs Labs: 02/26/18 13:13 02/26/18 14:00 - Constitutional Appears: Well - Head Exam Head Exam: ATRAUMATIC, NORMAL INSPECTION, NORMOCEPHALIC - Eye Exam Eye Exam: EOMI, Normal appearance, PERRL Pupil Exam: NORMAL ACCOMODATION, PERRL - ENT Exam ENT Exam: Mucous Membranes Moist, Normal Exam - Neck Exam Neck Exam: Full ROM, Normal Inspection. absent: Lymphadenopathy - Respiratory Exam Respiratory Exam: Decreased Breath Sounds - Cardiovascular Exam Cardiovascular Exam: REGULAR RHYTHM, +S1, +S2 - GI/Abdominal Exam GI & Abdominal Exam: Soft, Diminished Bowel Sounds - Rectal Exam Rectal Exam: Deferred
[2018-03-03 16:43] VITALS: BP 147/73; PULSE 89; O2SAT 95
[2018-03-03] MEDS: FLUOXETINE 20 MG PO SCH (18:10)
[2018-03-03] MEDS: LEVOTHYROXINE 75 MCG PO SCH (18:10)
--- NOTE | 2018-03-04 09:46 | CON ---
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 She now has spinal cord compression with paralysis. I just spoke to the son, Colby and the patient again and now they are all in agreement to send her home on hospice and he started to get oxygen at home, but at this point every one is in agreement that she should go home on hospice, so I asked the nurse to . I will be away Wednesday, Wednesday, and Wednesday. Dr. Thalia Kauffman was covering for me, but the patient's family are aware and agreeable to the hospice. Joni Beltrán MD
[2018-03-05] MEDS ORDERED: Ergocalciferol 50,000 Intl Units Cap PO SCH (10:00)
== END 2018-03-03 19:43 | disposition hospice, home (50) | DRG 181 ==
LOC: C.ER 12:32 → C.9E 14:47 → C.5S 15:22
PROVIDERS: ADMIT Internal Medicine Nephrology; ATTEND Internal Medicine Nephrology
DX: C34.90 Malignant neoplasm of unspecified part of unspecified bronchus or lung (principal); C79.51 Secondary malignant neoplasm of bone; G95.29 Other cord compression; E22.2 Syndrome of inappropriate secretion of antidiuretic hormone; G82.20 Paraplegia, unspecified; I10 Essential (primary) hypertension; M16.10 Unilateral primary osteoarthritis, unspecified hip; M47.9 Spondylosis, unspecified; E86.0 Dehydration; Z51.5 Encounter for palliative care; E05.00 Thyrotoxicosis with diffuse goiter without thyrotoxic crisis or storm; N39.498 Other specified urinary incontinence; Z87.891 Personal history of nicotine dependence; Z66 Do not resuscitate

== ENCOUNTER 2018-03-05 02:02 | Inpatient (IN) | payer MEDICARE ==
[2018-03-05 02:03] VITALS: BMI 28.8
--- NOTE | 2018-03-05 02:18 | C.PDOC ---
History Of Present Illness Patient with end stage lung cancer, DNR DNI, brought in from home because she was SOB. Unable to obtain Hx from patient. Patient placed on bipap on arrival. Time Seen by Provider: 03/05/18 02:17 Chief Complaint (Nursing): Respiratory Distress History Per: EMS, Family History/Exam Limitations: no limitations Onset/Duration Of Symptoms: Hrs Current Symptoms Are (Timing): Still Present Initiating Event: Other (Not known) Current Respiratory Medications: See Home Med List Past Medical History Reviewed: Historical Data, Nursing Documentation, Vital Signs Vital Signs: Last Vital Signs Temp Pulse 77 03/05/18 02:07 Resp 18 03/05/18 02:07 BP 135/85 03/05/18 02:07 Pulse Ox 99 03/05/18 02:07 - Medical History PMH: Arthritis, Fractures, HTN, Hypothyroidism, Malignancy (Lung CA) Denies: Chronic Kidney Disease Surgical History: Cholecystectomy Denies: Pacemaker - [facility] Procedures FLUOROSCOPY OF GALLBLADDER & BILE DUCT USING L OSM CONTRAST (09/22/16) RESECTION OF GALLBLADDER, PERCUTANEOUS ENDOSCOPIC APPROACH (09/22/16) TRANSFUSE NONAUT RED BLOOD CELLS IN PERIPH VEIN, PERC (09/22/16) Family History: States: No Known Family Hx - Social History Hx Alcohol Use: No Hx Substance Use: No - Immunization History Hx Tetanus Toxoid Vaccination: No Hx Influenza Vaccination: No Hx Pneumococcal Vaccination: No Review Of Systems Review Of Systems: ROS cannot be obtained secondary to pt's inabilty to answer questions. Physical Exam - Physical Exam Appears: Chronically Ill Skin: Warm, Dry Head: Normacephalic Eye(s): bilateral: Normal Inspection Oral Mucosa: Moist Neck: Trachea Midline, Supple Chest: Symmetrical, No Tenderness Cardiovascular: Rhythm Regular Respiratory: Decreased Breath Sounds, No Rales, No Rhonchi, No Wheezing Gastrointestinal/Abdominal: Soft, No Tenderness ED Course And Treatment O2 Sat by Pulse Oximetry: 99 (Room air) Pulse Ox Interpretation: Normal Progress Note: Blood work, EKG, and CXR ordered. pt and family refuse any blood work, or xrays. they just want the oxygen. p3:24 took bipap off and now refusing to use it or any nasal canula or nrb. saturation dropped to about 78% Family at bedside. They understand that patient may if oxygen saturation continues to decrease. 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 Disposition Discussed With Dr.: Francisco J Chacon Comment: accepted the pt on his service and took over the care at 3:48 AM Doctor Will See Patient In The: Hospital Counseled Patient/Family Regarding: Studies Performed, Diagnosis - Disposition Referrals: Ivan Sanderson MD [Primary Care Provider] - Disposition: HOSPITALIZED Disposition Time: 02:18 Condition: CRITICAL Forms: [facility] (Croatian) - POA Present On Arrival: None - Clinical Impression Clinical Impression: Dyspnea, Respiratory distress - Scribe Statement The provider has reviewed the documentation as recorded by the Scribe Hugh London All medical record entries made by the Scribe were at my direction and personally dictated by me. I have reviewed the chart and agree that the record accurately reflects my personal performance of the history, physical exam, medical decision making, and the department course for this patient. I have also personally directed, reviewed, and agree with the discharge instructions and disposition. Decision To Admit - Pt Status Changed To: Hospital Disposition Of: Inpatient - Admit Certification Admit to Inpatient:: After my assessment, the patient will require hospitalization for at least two midnights. This is because of the severity of symptoms shown, intensity of services needed, and/or the medical risk in this patient being treated as an outpatient. - InPatient: Physician Admission Certification: I certify that this patient requires 2 or more midnights of care for the following reason:: After my assessment, the patient will require hospitalization for at least two midnights. This is because of the severity of symptoms shown, intensity of services needed, and/or the medical risk in this patient being treated as an outpatient. - . Bed Request Type: Regular Admitting Physician: Francisco J Chacon Patient Diagnosis: Dyspnea, Respiratory distress
[2018-03-05] MEDS ORDERED: Albuterol-Ipratrop 3 mg / 0.5 (3 ml) UD ONE (03:41)
[2018-03-05] MEDS: Albuterol-Ipratrop 3 mg / 0.5 (3 ml) UD IH SCH ×3 (04:00→04:35)
[2018-03-05] MEDS ORDERED: Oxycodone/Acetaminophen 5/325 mg Tab PO PRN (13:41)
--- NOTE | 2018-03-05 14:53 | CP.PCM.CON ---
History of Present Illness - History of Present Illness History of Present Illness: reason for consultation: shortness of breath Patient is a 72 year old female with a PMHx of bilateral lung cancer, Graves' disease, and HTN who presented with worsening shortness of breath. Patient was recently admitted to [facility] and discharged As a home hospice. Patient has lung cancer widely metastatic to her bones. She had a spinal cord compression at T3 and T11 which affected her ambulation. patient in respiratory distress but refusing BiPAP. Patient is DNR/DNI PMHx: bilateral lung cancer, Graves' disease, and HTN, Arthritis PSHx: Fluorscopy of gallbladder (09/22/16) Allergies: Fish, Iodine, Shellfish derived, [place] FHx: Mother had history of bipolar disorder Meds: Duoneb, Asa 81 mg, Azithromycin, Ceftriaxone, Colace 100 mg, Doxycycline, Lovenox 40 mg, Drisdol, Solu-Medrol, Morphine ER 30 mg, Percocet 1 tab, Social: Denies alcohol, tobacco, and illicit drug use. Review of Systems - Review of Systems All systems: reviewed and no additional remarkable complaints except (shortness of breath) Past Patient History - Infectious Disease Hx of Infectious Diseases: None - Past Medical History & Family History Past Medical History?: Yes - Past Social History Smoking Status: Former Smoker - CARDIAC Hx Hypertension: Yes Hx Pacemaker: No - PULMONARY Hx Respiratory Disorders: Yes Other/Comment: Lung Ca Rt and Lt. - NEUROLOGICAL Hx Neurological Disorder: No - HEENT Hx HEENT Problems: No - RENAL Hx Chronic Kidney Disease: No - ENDOCRINE/METABOLIC Hx Hypothyroidism: Yes - HEMATOLOGICAL/ONCOLOGICAL Hx Blood Disorders: Yes Hx Cancer: Yes (lung) - INTEGUMENTARY Hx Dermatological Problems: No - MUSCULOSKELETAL/RHEUMATOLOGICAL Hx Falls: No - GASTROINTESTINAL Hx Gastrointestinal Disorders: No - GENITOURINARY/GYNECOLOGICAL Hx Genitourinary Disorders: No - PSYCHIATRIC Hx Substance Use: No - SURGICAL HISTORY Hx Cholecystectomy: Yes - ANESTHESIA Hx Anesthesia: Yes Hx Anesthesia Reactions: No Hx Malignant Hyperthermia: No Meds Allergies/Adverse Reactions: Allergies Allergy/AdvReac Type Severity Reaction Status Date / Time FISH Allergy Severe VOMITING Verified 03/05/18 02:07 iodine Allergy Severe VOMITING Verified 03/05/18 02:07 shellfish derived Allergy Verified 03/05/18 02:07 strawberry Allergy Verified 03/05/18 02:07 - Medications Medications: Current Medications Albuterol/Ipratropium (Duoneb 3 Mg/0.5 Mg (3 Ml) Ud) 3 ml INH RQ4 [facility] Fentanyl (Duragesic) 1 patch TD Q72H [facility] Last Admin: 03/05/18 14:02 Dose: 1 patch Hydromorphone HCl (Dilaudid) 4 mg IM Q4H PRN PRN Reason: Pain, severe (8-10) Last Admin: 03/05/18 14:08 Dose: 4 mg Ondansetron HCl (Zofran Tab) 4 mg PO Q6H PRN PRN Reason: Nausea/Vomiting Last Admin: 03/05/18 14:09 Dose: 4 mg Physical Exam - Head Exam Head Exam: ATRAUMATIC, NORMOCEPHALIC - ENT Exam ENT Exam: Mucous Membranes Moist - Neck Exam Neck exam: Positive for: Normal Inspection - Respiratory Exam Respiratory Exam: Decreased Breath Sounds - Cardiovascular Exam Cardiovascular Exam: REGULAR RHYTHM Results - Vital Signs Recent Vital Signs: Last Vital Signs Temp 97 F L 03/05/18 05:15 Pulse 86 03/05/18 05:15 Resp 24 03/05/18 09:30 BP 116/73 03/05/18 05:15 Pulse Ox 92 L 03/05/18 05:17 Assessment & Plan (1) Respiratory distress Status: Acute Comment: secondary to lung cancer and COPD. Nebulizer treatment and prednisone. On high flow oxygen. Refusing BiPAP. DNR/DNI. Spoke with son at length (2) Lung cancer Status: Acute
--- NOTE | 2018-03-05 18:11 | CP.PCM.HP ---
Past Patient History - Infectious Disease Hx of Infectious Diseases: None - Past Medical History & Family History Past Medical History?: Yes - Past Social History Smoking Status: Former Smoker - CARDIAC Hx Hypertension: Yes Hx Pacemaker: No - PULMONARY Hx Respiratory Disorders: Yes Other/Comment: Lung Ca Rt and Lt. - NEUROLOGICAL Hx Neurological Disorder: No - HEENT Hx HEENT Problems: No - RENAL Hx Chronic Kidney Disease: No - ENDOCRINE/METABOLIC Hx Hypothyroidism: Yes - HEMATOLOGICAL/ONCOLOGICAL Hx Blood Disorders: Yes Hx Cancer: Yes (lung) - INTEGUMENTARY Hx Dermatological Problems: No - MUSCULOSKELETAL/RHEUMATOLOGICAL Hx Falls: No - GASTROINTESTINAL Hx Gastrointestinal Disorders: No - GENITOURINARY/GYNECOLOGICAL Hx Genitourinary Disorders: No - PSYCHIATRIC Hx Substance Use: No - SURGICAL HISTORY Hx Cholecystectomy: Yes - ANESTHESIA Hx Anesthesia: Yes Hx Anesthesia Reactions: No Hx Malignant Hyperthermia: No Meds Allergies/Adverse Reactions: Allergies Allergy/AdvReac Type Severity Reaction Status Date / Time FISH Allergy Severe VOMITING Verified 03/05/18 02:07 iodine Allergy Severe VOMITING Verified 03/05/18 02:07 shellfish derived Allergy Verified 03/05/18 02:07 strawberry Allergy Verified 03/05/18 02:07 Physical Exam - Constitutional Appears: Well - Head Exam Head Exam: ATRAUMATIC, NORMAL INSPECTION, NORMOCEPHALIC - Eye Exam Eye Exam: EOMI, Normal appearance, PERRL Pupil Exam: NORMAL ACCOMODATION, PERRL - ENT Exam ENT Exam: Mucous Membranes Moist, Normal Exam - Neck Exam Neck exam: Positive for: Normal Inspection - Respiratory Exam Respiratory Exam: Decreased Breath Sounds - Cardiovascular Exam Cardiovascular Exam: REGULAR RHYTHM, +S1, +S2 - GI/Abdominal Exam GI & Abdominal Exam: Diminished Bowel Sounds, Soft - Rectal Exam Rectal Exam: Deferred Results - Vital Signs Recent Vital Signs: Last Vital Signs Temp 97 F L 03/05/18 05:15 Pulse 86 03/05/18 05:15 Resp 24 03/05/18 09:30 BP 116/73 03/05/18 05:15 Pulse Ox 92 L 03/05/18 05:17
[2018-03-06] MEDS: Albuterol-Ipratrop 3 mg / 0.5 (3 ml) UD INH SCH ×5 (02:06→15:30)
[2018-03-06 09:12] VITALS: TEMP 98.1
[2018-03-06 09:56] VITALS: BP 89/58; PULSE 89; O2SAT 87
[2018-03-06 12:13] VITALS: RESP 22
--- NOTE | 2018-03-06 12:19 | CP.PCM.PN ---
Subjective - Date & Time of Evaluation Date of Evaluation: 03/06/18 Time of Evaluation: 11:00 - Subjective Subjective: clinically same Objective - Vital Signs/Intake and Output Vital Signs (last 24 hours): Temp Pulse Resp BP Pulse Ox 98.1 F 89 22 89/58 L 87 L 03/06/18 07:00 03/06/18 09:55 03/06/18 12:12 03/06/18 09:55 03/06/18 09:55 Intake and Output: 03/06/18 03/06/18 06:59 18:59 Output Total 650 Balance -650 - Medications Medications: Current Medications Albuterol/Ipratropium (Duoneb 3 Mg/0.5 Mg (3 Ml) Ud) 3 ml INH RQ4 [facility] Last Admin: 03/06/18 12:11 Dose: Not Given Fentanyl (Duragesic) 1 patch TD Q72H [facility] Last Admin: 03/05/18 14:02 Dose: 1 patch Hydromorphone HCl (Dilaudid) 4 mg IM Q4H PRN PRN Reason: Pain, severe (8-10) Last Admin: 03/06/18 09:53 Dose: 4 mg Ondansetron HCl (Zofran Tab) 4 mg PO Q6H PRN PRN Reason: Nausea/Vomiting Last Admin: 03/05/18 14:09 Dose: 4 mg Prednisone (Prednisone Tab) 20 mg PO BID [facility] Last Admin: 03/06/18 09:55 Dose: Not Given - Constitutional Appears: Well - Head Exam Head Exam: ATRAUMATIC, NORMAL INSPECTION, NORMOCEPHALIC - Eye Exam Eye Exam: EOMI, Normal appearance, PERRL Pupil Exam: NORMAL ACCOMODATION, PERRL - ENT Exam ENT Exam: Mucous Membranes Moist, Normal Exam - Neck Exam Neck Exam: Full ROM, Normal Inspection. absent: Lymphadenopathy - Respiratory Exam Respiratory Exam: Decreased Breath Sounds - Cardiovascular Exam Cardiovascular Exam: REGULAR RHYTHM, +S1, +S2 - GI/Abdominal Exam GI & Abdominal Exam: Soft, Diminished Bowel Sounds - Rectal Exam Rectal Exam: Deferred
--- NOTE | 2018-03-06 13:37 | CP.PCM.PRO ---
Pronouncement of Note - Clinical Findings Physical Exam: No Response Verbal/Painful Stimuli, Absent Peripheral Puls es{Carotid & Femoral}, Absent Heart & Breath Sounds, No Pupillary Light Reflex, No Corneal Reflex, Pupils Fixed & Dilated, Absence of Vital Signs - Pronouncement Time Time of Pronouncement of : 13:35 - Notifications Pronouncement Notifications: Family Notified [employer] Clerk Notified: No - Autopsy Autopsy Requested: No - [place] [id number]
--- NOTE | 2018-03-06 15:01 | CP.PCM.PN ---
Subjective - Date & Time of Evaluation Date of Evaluation: 03/06/18 Time of Evaluation: 12:00 - Subjective Subjective: Pulmonary Follow up, Covering Dr Damian The patient was Seen/interviewed and examined by me at the bedside, Medical records reviewed and Management issues were discussed and formulated with the house staff. Events reviewed Objective - Vital Signs/Intake and Output Vital Signs (last 24 hours): Temp Pulse Resp BP Pulse Ox 98.1 F 89 22 89/58 L 87 L 03/06/18 07:00 03/06/18 09:55 03/06/18 12:12 03/06/18 09:55 03/06/18 09:55 Intake and Output: 03/06/18 03/06/18 06:59 18:59 Output Total 650 Balance -650 - Medications Medications: Current Medications Albuterol/Ipratropium (Duoneb 3 Mg/0.5 Mg (3 Ml) Ud) 3 ml INH RQ4 [facility] Last Admin: 03/06/18 12:11 Dose: Not Given Fentanyl (Duragesic) 1 patch TD Q72H [facility] Last Admin: 03/05/18 14:02 Dose: 1 patch Hydromorphone HCl (Dilaudid) 4 mg IM Q4H PRN PRN Reason: Pain, severe (8-10) Last Admin: 03/06/18 09:53 Dose: 4 mg Ondansetron HCl (Zofran Tab) 4 mg PO Q6H PRN PRN Reason: Nausea/Vomiting Last Admin: 03/05/18 14:09 Dose: 4 mg Prednisone (Prednisone Tab) 20 mg PO BID [facility] Last Admin: 03/06/18 09:55 Dose: Not Given
== END 2018-03-06 13:35 | DRG 181 ==
LOC: SUPCPDRO 02:02 → C.ER 02:02 → C.6T 03:42
PROVIDERS: ADMIT Internal Medicine Nephrology; ATTEND Internal Medicine Nephrology
DX: C34.90 Malignant neoplasm of unspecified part of unspecified bronchus or lung (principal); C79.51 Secondary malignant neoplasm of bone; G95.20 Unspecified cord compression; I10 Essential (primary) hypertension; Z66 Do not resuscitate; E05.00 Thyrotoxicosis with diffuse goiter without thyrotoxic crisis or storm; Z87.891 Personal history of nicotine dependence; Z90.49 Acquired absence of other specified parts of digestive tract